=== PATIENT | male | born 1945 | race Caucasian/White ===

== ENCOUNTER 2020-01-20 01:10 | Inpatient (IN) | payer MEDICARE, SELFPAY ==
[2020-01-20] VITALS (24 sets, daily range): BP systolic 132–204; BP diastolic 64–145; PULSE 69–136; RESP 20–37; TEMP 36.6–36.8; O2SAT 86–100; BMI 34.7
--- NOTE | ~2020-01-20 | XR_ITS ---
EXAMINATION: XR chest 1V portable EXAM DATE: 01/21/2020 05:41 INDICATION: CHF, shortness of breath. TECHNIQUE: Portable AP frontal chest x-ray was obtained. Correlation was made with chest CT from [facility]. FINDINGS: Groundglass opacities identified on yesterday's CT have resolved or are not otherwise appre ciated on this portable chest x-ray. There are no pleural effusions. Cardiac silhouette is prominen t but magnified on this AP technique. There is no pneumothorax suspected. The bones and soft tissu es are unremarkable. IMPRESSION: Unremarkable chest x-ray exam. Reviewed, dictated and finalized at location A. ICAL OB
--- NOTE | ~2020-01-20 | CT_ITS ---
EXAMINATION:CT chest wo con DATE: 01/20/2020 02:57 INDICATION: Shortness of breath. TECHNIQUE: Computed tomography (CT) of the chest was performed without intravenous contrast. Automate d exposure control and iterative reconstruction technique were employed. The dose-length product (DLP ) was 685.32 mGy-cm. COMPARISON: None. FINDINGS: There is diffuse smooth septal thickening in the lungs. There are scattered patchy groundgl ass opacities in the lungs. These findings are consistent with pulmonary edema. Calcified bilateral l britni nodules and calcified right hilar lymph nodes are consistent with old granulomatous disease. Ther e are small pleural effusions. There is left ventricular enlargement of the heart. There are coronary artery calcifications. No pericardial effusion. There are cysts in the liver measuring up to 14 mm. There are bridging endplate osteophytes at multiple levels in the spine, consistent with diffuse idio pathic skeletal hyperostosis (DISH). IMPRESSION: 1. Moderate pulmonary edema. 2. Small pleural effusions. 3. Left ventricular enlargement of the heart. Reviewed, dictated and finalized at location A. ORATE TRAVEL COUNSELOR
--- NOTE | 2020-01-20 01:22 | ECG_ITS ---
Measurements Intervals [place] Rate: 123 P: 54 IL: 172 QRS: -10 QRSD: 118 T: 91 QT: 294 QTc: 422 Interpretive Statements SINUS TACHYCARDIA VENTRICULAR PREMATURE COMPLEXES INCOMPLETE LEFT BUNDLE BRANCH BLOCK CANNOT RULE OUT SEPTAL INFARCT, AGE INDETERMINATE ST-T WAVE ABNORMALITY IN HIGH LATERAL LEADS- CONSIDER ISCHEMIA BASELINE ARTIFACT- I, II, III, AVL, AVF, V3-V5 ABNORMAL ECG Electronically Signed On 01-20-2020 7:04:00 GRADES 9 THRU 12 VISITING TEACHER by Cheng Gonzalez D.O.
--- NOTE | 2020-01-20 01:26 | ED.SOB ---
HPI - SOB/Dyspnea General Chief Complaint: Shortness of Breath/Dyspnea Stated Complaint: SOB Time Seen by Provider: 01/20/20 01:14 Source: patient Mode of arrival: ambulatory Limitations: no limitations History of Present Illness HPI Narrative: Patient is a 72-year-old male complaining of shortness of breath that started tonight accompanied by fever and cough. Patient in respiratory distress upon arrival. Patient's oxygen sat on room air was 84%, he does not use oxygen at home. MD elicited complaint: shortness of breath Related Data Home Medications Medication Instructions Recorded Confirmed Unable to Obtain Home Medications 01/20/20 01/20/20 Allergies Allergy/AdvReac Type Severity Reaction Status Date / Time No Known Allergies Allergy Unverified 01/20/20 01:24 Review of Systems Review of Systems: All systems reviewed & are unremarkable except as noted in HPI and below Constitutional: Constitutional: Denies body ache(s), Denies chills, Denies excessive sweating, Denies fatigue, Denies fever(s), Denies headache(s), Denies lethargy, Denies malaise, Denies weakness and Denies weight loss Eyes: Eyes: Denies blurry vision, Denies change in vision and Denies loss of vision ENT: Denies dizziness, Denies ear discharge, Denies headache(s), Denies lip swelling, Denies epistaxis, Denies nasal congestion, Denies neck pain, Denies throat swelling and Denies tongue swelling Cardiovascular: Cardiovascular: Denies chest pain, Denies chest pain at rest, Denies chest pain with activity, Denies diaphoresis, Denies rapid heart rate, Denies edema, Denies irregular heart rhythm, Denies lightheadedness and Denies palpitations Respiratory: Respiratory: Denies hemoptysis Gastrointestinal: Gastrointestinal: Denies abdominal pain, Denies melena, Denies hematochezia, Denies diarrhea, Denies nausea, Denies vomiting and Denies hematemesis Musculoskeletal: Musculoskeletal: Denies abnormal gait, Denies deformity, Denies joint swelling, Denies limited range of motion, Denies neck pain and Denies numbness Neurologic: Denies Abnormal speech present, Denies abnormal gait, Denies confusion, Denies dizziness, Denies headache(s), Denies focal weakness, Denies loss of vision, Denies numbness, Denies Other visual disturbances, Denies Sensory deficit (Neuro) and Denies weakness Psychiatric: Psychiatric: Denies confusion, Denies depression, Denies auditory hallucinations, Denies homicidal ideation and Denies suicidal ideation Endocrine: Endocrine: Denies cold intolerance, Denies excessive sweating, Denies fatigue, Denies heat intolerance and Denies palpitations Hematologic/Lymphatic: Hematologic/Lymphatic: Denies easy bleeding and Denies easy bruising Allergic/Immunologic: Allergic/Immunologic: Denies lip swelling, Denies throat swelling and Denies tongue swelling PMF Social History Social History Gender identity (if verbalized by the patient): Male Exam Const: General: ill appearing Nutritional Appearance: obese Orientation/consciousness: oriented to person, oriented to place, oriented to time, patient oriented x3 and No confusion Limitations: no limitations Other: Severe distress HENMT: Head: normal to inspection, normocephalic and atraumatic Ears: hearing grossly normal bilaterally, TM normal on the right and TM normal on the left General nose exam: Normal external nose present, Normal nares present and No nasal discharge present Face and sinus: normal facial exam Mouth: Yes Normal oral and palatal mucosa present, Yes lip normal, Yes tongue normal and Yes oropharynx normal Throat: posterior oropharynx normal, tonsils normal and uvula midline Eyes: General: appearance normal, both eyes and all related structures Pupils: Equal, round and reactive pupils present EOM: EOMs intact bilaterally Neck: Neck: normal visual inspection, full ROM, no lymphadenopathy and no meningeal signs Chest: Chest palpation & inspection: normal inspection of the c
[2020-01-20] MEDS: FUROSEMIDE INJ 40 MG/4 ML VIAL IV PUSH ×2 (01:37→15:26)
[2020-01-20 01:39] LABS: Glucose Point of Care 457 (65-105)
[2020-01-20] MEDS: ALBUTEROL SULFATE NEB 2.5 MG/0.5 ML INH 5 MG INHALATION (01:43)
[2020-01-20] MEDS: IPRATROPIUM BR 0.02% INH SOLN 0.5 MG/2.5 ML VIAL INHALATION (01:44)
[2020-01-20 01:51] LABS: Basophils Absolute Auto 0.1 K/mm3 (0.0-0.1); Basophils Percent Auto 0.4 % (0.2-1.2); Eosinophils Absolute Auto 0.1 K/mm3 (0-0.3); Eosinophils Percent Auto 0.4 % (0-4.4); Hematocrit 53.5 % (42.0-52.0); Hemoglobin 17.8 g/dL (14.0-18.0); Immature Granulocyte Absolute 0.06 K/mm3 (0.00-0.031); Immature Granulocyte Percent A 0.4 % (0-0.5); Lymphocytes Absolute Auto 2.43 K/mm3 (0.9-3.2); Lymphocytes Percent Auto 14.5 % (18.3-44.2); Mean Corpuscular HGB Conc 33.3 g/dl (32-36); Mean Corpuscular Hemoglobin 28.7 pg (26-34); Mean Corpuscular Volume 86.3 fl (80-100); Monocytes Absolute Auto 1.3 K/mm3 (0.1-0.6); Monocytes Percent Auto 7.8 % (2.6-8.5); Neutrophils Absolute Auto 12.8 K/mm3 (1.3-6.7); Neutrophils Percent Auto 76.5 % (45.5-73.1); Platelet Count Result 257 k/mm3 (150-375); Red Cell Distribution Width 12.9 % (11.5-14.5); White Blood Count 16.8 K/mm3 (4.5-10.0)
[2020-01-20 02:09] LABS: Alveolar/Arterial O2 Gradient 96.8 mmHg; Base Excess ABG 0.5 mEq/l (+/-2.0); Carboxyhemoglobin 0.6 % THb (0-2.0); Fractional Inspired Oxygen 35 %; HCO3 ABG 27.5 mEq/l (22.0-26.0); Methemoglobin ABG 0.2 %THb (0-1.5); Oxygen Content ABG 24.1 %vol (16.0-22.0); Oxygen Saturation ABG 96.5 % (95.0-100.0); Oxyhemoglobin 95.6 % THb (90.0-100.0); PCO2 ABG 52.4 mmHg (35.0-45.0); PO2 ABG 91.8 mmHg (80.0-100.0); PO2 FiO2 Ratio Arterial Blood 2.62 %; Reduced Hemoglobin 3.6 %THb (0-5.0); Total Hemoglobin 17.9 g/dL (12.0-18.0); pH ABG 7.338 (7.350-7.450)
[2020-01-20 02:10] LABS: Device NASAL CANNULA; Modified Allen's Test Pass; Site Drawn RIGHT RADIAL
[2020-01-20 02:28] LABS: Alanine Aminotransferase 26 U/L (4-50); Albumin Level 4.3 g/dL (3.5-5.1); Alkaline Phosphatase 179 U/L (38-126); Anion Gap 11 mmol/L (8-16); Aspartate Amino Transferase 37 U/L (17-59); Bilirubin,Total 0.6 mg/dL (0.2-1.3); Blood Urea Nitrogen 14 mg/dL (9-20); Calcium 9.2 mg/dL (8.4-10.2); Carbon Dioxide 31 mmol/L (22-30); Chloride 97 mmol/L (98-107); Estimated CRCL calculation 81 ml/min; Estimated Glomerular Filt Rate > 60; Glucose 482 mg/dL (75-110); NT Pro B Type Natriuretic Pept 887 PG/ML (5-100); Potassium 3.8 mmol/L (3.4-5.0); Sodium 139 mmol/L (137-145); Troponin I 0.315 ng/mL (0.000-0.034)
[2020-01-20] MEDS: ASPIRIN 81 MG CHEWABLE TABLET 324 MG PO (02:39)
[2020-01-20 02:48] LABS: INR 0.8; Prothrombin Time 12.1 Seconds (11.1-14.7)
[2020-01-20 03:05] LABS: Lactic Acid Reflex 2.6 mmol/L (0.7-2.1)
[2020-01-20] MEDS: ENOXAPARIN 120 MG/0.8 ML SYRINGE 110 MG SUB-Q ×2 (04:57→19:16)
[2020-01-20 05:23] LABS: Alanine Aminotransferase 28 U/L (4-50)
[2020-01-20 05:35] LABS: Reflex Lactic Acid Yes or No Add Lactic
--- NOTE | 2020-01-20 05:35 | ADMGEN ---
This patient, Shree Chapman, was admitted to IMU Room 211-01. Patient/family oriented to hospital policies and general routines including ID bracelet, bed and alarms, visiting hours, pain management, procedures, bathroom and other care routines, personal items, smoking policy, room service/diet, and visiting hours. Information on how to activate the Rapid Response Team has been discussed. Patient/Family are encouraged to report perceived risks to care and to ask questions if they do not understand what they are told or what they should do.
--- NOTE | 2020-01-20 05:37 | PC.NURSE ---
patient states he sent home wallet with friend Farheen
[2020-01-20 06:09] LABS: Lactic Acid 2.9 mmol/L (0.7-2.1)
[2020-01-20 08:43] LABS: Glucose Point of Care 489 (65-105)
--- NOTE | 2020-01-20 09:55 | PC.NURSE ---
Spoke with Parvin from Pharmacy. Kelley
[2020-01-20 12:29] LABS: Lactic Acid Reflex 2.5 mmol/L (0.7-2.1)
[2020-01-20 12:36] LABS: Basophils Percent Auto 0.2 % (0.2-1.2); Hematocrit 50.2 % (42.0-52.0); Hemoglobin 16.9 g/dL (14.0-18.0); Immature Granulocyte Absolute 0.06 K/mm3 (0.00-0.031); Immature Granulocyte Percent A 0.5 % (0-0.5); Immature Platelet Fraction Pct 3.2 % (0.9-11.2); Lymphocytes Absolute Auto 0.98 K/mm3 (0.9-3.2); Lymphocytes Percent Auto 7.7 % (18.3-44.2); Mean Corpuscular HGB Conc 33.7 g/dl (32-36); Mean Corpuscular Volume 83.3 fl (80-100); Mean Platelet Volume 10.2 fl (7.4-10.4); Monocytes Absolute Auto 0.2 K/mm3 (0.1-0.6); Monocytes Percent Auto 1.6 % (2.6-8.5); Neutrophils Absolute Auto 11.5 K/mm3 (1.3-6.7); Platelet Count Result 228 k/mm3 (150-375); Red Blood Count 6.03 M/mm3 (4.6-6.20); Red Cell Distribution Width 12.8 % (11.5-14.5); White Blood Count 12.8 K/mm3 (4.5-10.0)
[2020-01-20 13:05] LABS: Hemoglobin A1C 10.8 % (<5.7)
[2020-01-20 13:06] LABS: Anion Gap 11 mmol/L (8-16); Blood Urea Nitrogen 17 mg/dL (9-20); Calcium 9.1 mg/dL (8.4-10.2); Carbon Dioxide 30 mmol/L (22-30); Chloride 98 mmol/L (98-107); Estimated CRCL calculation 99 ml/min; Estimated Glomerular Filt Rate > 60; Glucose 463 mg/dL (75-110); Potassium 4.4 mmol/L (3.4-5.0); Sodium 139 mmol/L (137-145)
--- NOTE | 2020-01-20 13:40 | ECG_ITS ---
Measurements Intervals [place] Rate: 78 P: -1 DC: 165 QRS: -31 QRSD: 110 T: 151 QT: 467 QTc: 534 Interpretive Statements SINUS RHYTHM INCOMPLETE LEFT BUNDLE BRANCH BLOCK INFERIOR INFARCT, AGE INDETERMINATE ANTEROSEPTAL INFARCT, AGE INDETERMINATE ST-T WAVE ABNORMALITY IN ANTEROLAT/HIGH LAT LEADS- CONSIDER ISCHEMIA ABNORMAL ECG Electronically Signed On 01-20-2020 17:25:37 ANALOG IC DESIGN ENGINEER by Cheng Gonzalez D.O.
[2020-01-20 14:35] LABS: Glucose Point of Care 482 (65-105)
--- NOTE | 2020-01-20 15:01 | PM.CNCAR ---
Assessment and Plan Assessment and plan (1) Non-ST elevation AR (NSTEMI): Code(s): I21.4 - Non-ST elevation (NSTEMI) myocardial infarction Status: Acute Assessment and Plan: Patient presents with anginal symptoms improved transiently with sublingual nitroglycerin with shortness of breath and chest discomfort consistent with acute coronary syndrome with elevated troponin abnormal EKG with ST depression, and history of CAD with multiple stents previously placed 2000 with severe multi-vessel CAD 2.5 x 20 mm tetra stent diagonal mid LAD 2.75 x 28 mm tetra stent mid LAD, 2.75 x 13 mm tetra stent posterolateral, 3.0 x 13 mm stent PDA. NPO after midnight if COVID negative with plans for coronary angiography in a.m.. Cont ASA, Enoxaparin, Atorvastatin, spironolactone, Toprol XL. Plavix was on outpatient med list until he ran out at least 4-5 days ago and has been restarted. If COVID positive will need to discuss management options based on patient's clinical status. -hold a.m. enoxaparin in anticipation for coronary angiography. -2D echocardiogram -repeat 12 lead EKG and troponin for trending Discussed risks, benefits, and alternatives in detail. All questions answered to his satisfaction. Patient agrees with coronary angiography if appropriate. 06/27/2000 LHC at [facility]: Patient presented with unstable angina (report mentions he is [employer]) 70% mid LAD stenosis, 95% proximal diagonal branch stenosis, 50% proximal circumflex, dominant RCA 75% distal right, 80% PDA and 70% posterolateral stenosis, EF 60% moderate hypokinesis diaphragmatic segment (2) Pulmonary edema: Qualifiers: Chronicity: acute Qualified Code(s): J81.0 - Acute pulmonary edema Code(s): J81.1 - Chronic pulmonary edema Status: Acute Assessment and Plan: Resolved with IV Lasix. Monitor volume status. Likely secondary to acute coronary syndrome. 2D echocardiogram. BNP 887 (3) Acute hypoxemic respiratory failure: Code(s): J96.01 - Acute respiratory failure with hypoxia Status: Acute Assessment and Plan: Resolving, remains on oxygen supplementation but stable. COVID pending. (4) CAD (coronary artery disease): Code(s): I25.10 - Atherosclerotic heart disease of crow coronary artery without angina pectoris Status: Acute Assessment and Plan: As above. (5) Diabetes mellitus: Code(s): E11.9 - Type 2 diabetes mellitus without complications Status: Acute Assessment and Plan: Per primary service. Blood sugars elevated 463 hemoglobin A1c 10.8% uncontrolled. (6) Hypertension: Code(s): I10 - Essential (primary) hypertension Status: Acute Assessment and Plan: Hypertensive urgency presentation improved but not ideally controlled at this time. History of Present Illness History of Present Illness Consult date/time: Date of Service: 01/20/20 15:01 Cardiology consultation at the request of Dr. Garcia of the [facility] for my opinion regarding elevated troponin and chest pain. Requesting physician: Akil Garcia MD Consult reason: chest pain Reason For Visit: Acute respiratory failure Narrative: Patient is a pleasant 74-year-old male with a history of remote multi-vessel percutaneous intervention 06/27/2000 [facility] status post 2.5 x 20 mm tetra stent diagonal branch, 2.75 x 28 mm tetra mid LAD, 2.75 x 13 mm tetra stent posterolateral and 3.0 x 13 mm stent ostial PDA/distal RCA without consistent cardiovascular follow-up for many years Ford presented to the emergency department with complaints of progressive shortness of breath over the preceding 1-2 days. Patient states he had been out of all his medications for the past 4 or 5 days and noted some progressive swelling in his ankles and a flipping sensation is chest pressure discomfort was transiently resolved with sublingual nitroglycerin of his mother's. He
--- NOTE | 2020-01-20 15:12 | PM.IMHP ---
H&P: HPI History of Present Illness Date/Time: 01/20/20 15:12 Chief complaint: Acute respiratory failure Narrative: Date of visit 899 Shree Chapman is a 74 year old male with known history of coronary disease status post stenting x4 at [facility] at least 4-5 years ago who presented to the hospital with increasing shortness of breath for the last 24-48 hours. States that he had misplaced his medication and had not taken his usual diuretic another medication for approximately 4-5 days. He had noticed some swelling in his ankles. He had taken nitroglycerin of his mother's within the past day also with chest discomfort when he was helping move her. No fever no chills documented. Minimal cough and no COVID exposures that he is aware of. States he has had a nuclear stress test but can't say exactly when it and does not know if he has had heart failure. He is a nonsmoker but states he had lots of secondhand smoke Review of Systems Review of Systems: Narrative: Constitutionally phase weight is down slightly dieting some but good appetite and no fever chills as stated Eyes no double vision no scotoma Mouth no pharyngitis laryngitis Pulmonary as per present illness CV as per present illness no palpitation no dysuria no hematuria GI no melena hematochezia diarrhea Muscle skeletal no particular joint discomfort Integument no skin breakdown rashes Neuropsych affect appropriate pleasant and no history of seizures or syncope PMFSH Past Medical History Medical History (Updated 01/20/20 @ 16:25 by Akil Garcia MD) CAD (coronary artery disease) Diabetes mellitus Hypertension Laryngeal carcinoma Family History Family History (Updated 01/20/20 @ 16:24 by Akil Garcia MD) Mother Hypertension Diabetes mellitus Cerebrovascular accident Father , Lung carcinoma Carcinoma, lung Other Unknown family medical history Social History Social History Social History: 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[employer], 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 Two children living and well Smoking status: Never smoker Alcohol intake: current Substance use: never Gender identity (if verbalized by the patient): Male Spiritual care concerns: No Meds Home Medications and Allergies Home Medications Medication Instructions Recorded Confirmed Type Unable to Obtain Home Medications 01/20/20 01/20/20 History Allergies Allergy/AdvReac Type Severity Reaction Status Date / Time No Known Allergies Allergy Unverified 01/20/20 01:24 Vital Signs Vital Signs - 24 hr 01/20/20 01:13 01/20/20 01:23 01/20/20 01:31 Temperature 36.6 C Pulse Rate 125 H 136 H 130 H Respiratory Rate 34 H 30 H Blood Pressure 200/145 H 204/123 H Pulse Oximetry 86 L 97 01/20/20 01:35 01/20/20 01:45 01/20/20 01:52 Temperature Pulse Rate 120 H 122 H Respiratory Rate 35 H 37 H Blood Pressure 173/121 H Pulse Oximetry 98 99 96 01/20/20 02:00 01/20/20 02:05 01/20/20 03:00 Temperature Pulse Rate 125 H 119 H 108 H Respiratory Rate 28 H 32 H 26 H Blood Pressure 178/114 H 157/114 H Pulse Oximetry 96 99 01/20/20 03:57 01/20/20 05:00 01/20/20 06:00 Temperature Pulse Rate 109 H 111 H 72 Respiratory Rate 24 H 35 H Blood Pressure 132/90 Pulse Oximetry 100 99 01/20/20 07:01 01/20/20 08:48 01/20/20 12:00 Temperature 36.7 C 36.7 C Pulse Rate 102 H 94 Respiratory Rate 24 H 20 Blood Pressure 148/93 H 155/77 H Pulse Oximetry 99 95 97 Exam Narrative: Exam Narrative: Blood pressure 154/76 pulse 94 regular is afebrile Pupils equal reactive light sclera anicteric Neck supple no adenopathy thyromegaly carotid bruits Lungs clear very faint crackle right posterior base CV regular rate rhythm no murmurs gallops Abdomen soft nontender no masses slightly obese Extremities without edema distal pulses are
[2020-01-20] MEDS: CLOPIDOGREL BISULFATE 75 MG TABLET PO (15:25)
[2020-01-20] MEDS: SPIRONOLACTONE 25 MG TABLET PO (15:25)
[2020-01-20] MEDS: METOPROLOL SUCCINATE EXT REL 100 MG TABCR PO (15:25)
[2020-01-20] MEDS: INSULIN GLARGINE (*BKC) 100 UNITS/ML 20 UNITS SUB-Q (15:30)
[2020-01-20] MEDS: ASPIRIN 81 MG ENTERIC TABLET PO (16:05)
[2020-01-20] MEDS: ATORVASTATIN 40 MG TABLET PO (16:05)
[2020-01-20] MEDS: INSULIN ASPART (*BKC) 100 UNITS/ML 15 UNITS SUB-Q (16:05)
[2020-01-20 19:12] LABS: Glucose Point of Care 446 (65-105)
[2020-01-20 19:16] LABS: SARS-CoV-2 RNA PCR Negative
[2020-01-20] MEDS: INSULIN ASPART (*BKC) 100 UNITS/ML 25 UNITS SUB-Q (19:16)
[2020-01-20] MEDS: INSULIN ASPART (*BKC) 100 UNITS/ML 10 UNITS SUB-Q (20:55)
[2020-01-20 21:08] LABS: Glucose Point of Care > 500 (65-105)
[2020-01-21] VITALS (32 sets, daily range): BP systolic 108–158; BP diastolic 53–119; PULSE 55–75; RESP 12–26; TEMP 35.7–36.9; O2SAT 94–100
[2020-01-21 01:21] LABS: Glucose Point of Care 176 (65-105)
[2020-01-21 05:33] LABS: Basophils Percent Auto 0.1 % (0.2-1.2); Hematocrit 48.1 % (42.0-52.0); Immature Granulocyte Absolute 0.11 K/mm3 (0.00-0.031); Immature Granulocyte Percent A 0.6 % (0-0.5); Lymphocytes Absolute Auto 1.88 K/mm3 (0.9-3.2); Lymphocytes Percent Auto 10.2 % (18.3-44.2); Mean Corpuscular HGB Conc 33.3 g/dl (32-36); Mean Corpuscular Hemoglobin 28.4 pg (26-34); Mean Corpuscular Volume 85.4 fl (80-100); Monocytes Absolute Auto 1.4 K/mm3 (0.1-0.6); Monocytes Percent Auto 7.6 % (2.6-8.5); Neutrophils Percent Auto 81.5 % (45.5-73.1); Platelet Count Result 259 k/mm3 (150-375); Red Blood Count 5.63 M/mm3 (4.6-6.20); Red Cell Distribution Width 12.9 % (11.5-14.5); White Blood Count 18.4 K/mm3 (4.5-10.0)
[2020-01-21 05:49] LABS: Potassium 3.5 mmol/L (3.4-5.0)
[2020-01-21 06:00] LABS: Anion Gap 7 mmol/L (8-16); Blood Urea Nitrogen 27 mg/dL (9-20); Calcium 8.7 mg/dL (8.4-10.2); Carbon Dioxide 35 mmol/L (22-30); Chloride 97 mmol/L (98-107); Estimated CRCL calculation 87 ml/min; Estimated Glomerular Filt Rate > 60; Glucose 232 mg/dL (75-110); Phosphorus 3.8 mg/dL (2.5-4.5); Sodium 139 mmol/L (137-145)
[2020-01-21] MEDS: LEVOTHYROXINE SODIUM 50 MCG TABLET PO (06:33)
--- NOTE | 2020-01-21 08:32 | WPDMODSED ---
Moderate Sedation Note-Pt Data Patient Data Diagnosis: Non ST-elevation IN Present Complaint: 74-year-old man with established history of coronary disease multivessel stenting in the remote past presents with chest pain and significant troponin elevation patient also has evolved significant T-wave inversion electrocardiographically Procedure to be performed/Plan: left heart catheterization Allergies Allergy/AdvReac Type Severity Reaction Status Date / Time No Known Allergies Allergy Unverified 01/20/20 01:24 Home Medications Medication Instructions Recorded Confirmed Type clopidogrel 75 mg PO DAILY 01/20/20 01/20/20 History levothyroxine 50 mcg PO DAILY 01/20/20 01/20/20 History metoprolol succinate 100 mg PO DAILY 01/20/20 01/20/20 History rosuvastatin 40 mg PO DAILY 01/20/20 01/20/20 History spironolactone 25 mg PO DAILY 01/20/20 01/20/20 History Current Medications: Active Medications Acetaminophen (Acetaminophen 325 Mg Tablet) 650 mg PO Q4H PRN PRN Reason: Mild Pain (1-3) or Fever Al Hydrox/Mg Hydrox/Simethicone (Mag Hydrox/Al Hydrox/Simeth 30 Ml Udc) 30 ml PO QID PRN PRN Reason: Dyspepsia Aspirin (Aspirin 81 Mg Enteric Tablet) 81 mg PO QAM [facility] Last Admin: 01/20/20 16:05 Dose: 81 mg Documented by: Atorvastatin Calcium (Atorvastatin 40 Mg Tablet) 40 mg PO DAILY [facility] Last Admin: 01/20/20 16:05 Dose: 40 mg Documented by: Clopidogrel Bisulfate (Clopidogrel Bisulfate 75 Mg Tablet) 75 mg PO QAM [facility] Last Admin: 01/20/20 15:25 Dose: 75 mg Documented by: Dextrose (Dextrose 50% 25 Gm/50 Ml Syringe) 12.5 gm IV PUSH PRN PRN; Protocol PRN Reason: Hypoglycemia Enoxaparin Sodium (Enoxaparin 120 Mg/0.8 Ml Syringe) 110 mg SUB-Q Q12H [facility] Last Admin: 01/20/20 19:16 Dose: 110 mg Documented by: Glucagon (Glucagon For Inj 1 Mg Vial) 1 mg IM PRN PRN; Protocol PRN Reason: Hypoglycemia Glucose (Glucose Oral Gel 15 Gm Of Glucse In 37.5 Gm Tube) 15 gm PO PRN PRN; Protocol PRN Reason: Hypoglycemia Dextrose (Dextrose 5% 1,000 Ml) 1,000 mls @ 100 mls/hr IVPB PRN PRN; Protocol PRN Reason: Hypoglycemia Insulin Aspart (Insulin Aspart (*Bkc) 100 Units/Ml) 4 - 8 units SUB-Q TID[facility]; Protocol Last Admin: 01/20/20 19:12 Dose: Not Given Documented by: Levothyroxine Sodium (Levothyroxine Sodium 50 Mcg Tablet) 50 mcg PO DAILY@0630 [facility] Last Admin: 01/21/20 06:33 Dose: 50 mcg Documented by: Lisinopril (Lisinopril 5 Mg Tablet) 5 mg PO [facility] Last Admin: 01/20/20 23:13 Dose: Not Given Documented by: Magnesium Hydroxide (Magnesium Hydroxide Susp 30 Ml Udc) 30 ml PO DAILY PRN PRN Reason: Constipation Metoprolol Succinate (Metoprolol Succinate Ext Rel 100 Mg Tabcr) 100 mg PO [facility] Last Admin: 01/20/20 15:25 Dose: 100 mg Documented by: Ondansetron HCl (Ondansetron Inj 4 Mg/2 Ml Vial) 4 mg IV PUSH Q6H PRN PRN Reason: Nausea And Vomiting Spironolactone (Spironolactone 25 Mg Tablet) 25 mg PO [facility] Last Admin: 01/20/20 15:25 Dose: 25 mg Documented by: Sedation/Anesthesia: No previous sedation/anesthesia problems (including family history). 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
[2020-01-21 10:11] LABS: Glucose Point of Care 263 (65-105)
--- NOTE | 2020-01-21 10:12 | ECG_ITS ---
Measurements Intervals [place] Rate: 61 P: 22 AR: 170 QRS: -31 QRSD: 106 T: 172 QT: 562 QTc: 568 Interpretive Statements SINUS RHYTHM VENTRICULAR PREMATURE COMPLEX INFERIOR INFARCT, AGE INDETERMINATE ANTEROSEPTAL INFARCT, AGE INDETERMINATE ST-T WAVE ABNORMALITY IN ANTEROLAT/HIGH LAT LEADS- CONSIDER ISCHEMIA BASELINE ARTIFACT- I, II ABNORMAL ECG Electronically Signed On 01-21-2020 10:51:29 PHOTOGRAPH TINTER by Cheng Gonzalez D.O.
--- NOTE | 2020-01-21 10:18 | WPDCARDPROC ---
Cardiac Cath Procedure Note Date of procedure:: 01/21/20 Performing physician:: Matt Juarez MD Indication:: non ST-elevation ME Brief clinical history:: this is a 74-year-old man with a history of coronary disease who underwent multivessel PCI 19 years ago at another institution. He presented yesterday with episodes of ischemic chest pain he developed deep T-wave inversion on his ECG and had a significant troponin rise leading to the recommendation for a follow-up angiogram today. Procedure Procedure performed:: Left heart catheterization with left ventriculography and coronary angiography percutaneous revascularization ([place]) to the proximal/mid LAD Sedation/Medication given:: fentanyl 50 mg Versed 2 mg case start time 9:23 a.m. case end time 10:06 a.m. sedation provided by Xiang Rojas RN, trained observer Access site:: right femoral artery Estimated blood loss:: 15-20 cc Procedure note:: patient was brought to the cardiac catheterization lab in the postabsorptive state. The right femoral triangle was prepared and draped in the usual fashion. Anesthesia was provided with 1% lidocaine infiltrated locally. Using modified Seldinger technique the right femoral artery was punctured and a 5 Marshallese vascular sheath was placed. After this left heart catheterization was carried out. I utilized a 5 Marshallese angled pigtail catheter to measure left-sided hemodynamics and injected LV g in the are AO projection. After this I used standard 5 Marshallese FL4 catheter to engage inject the left coronary artery and then a 5 Marshallese JR4 catheter to engage inject the right coronary artery. The cine angiograms were then reviewed and PCI of the LAD was recommended and carried out as detailed below. Prior to PCI 5 Marshallese sheath was changed over a guidewire for a 6 Marshallese device. A he then was systemically anticoagulated with Angiomax for this PCI he received 600 mg of clopidogrel orally prior to PCI. At the end of the intervention the patient was stable the sheath sheath was sutured into position he was taken to the holding area for recovery and ultimate sheath removal. Procedure was well tolerated he had no evidence of a groin hematoma upon leaving the laborer tree tapping. Findings:: Hemodynamics: Central aortic pressure was 105/50 left ventricle 105/0 end-diastolic pressure 4. There is no gradient upon pullback across the aortic valve. The left ventricle is normal in size there is impressive concentric hypertrophy noted. The inferior wall is hypodynamic there are no akinetic segments the global ejection fraction is visually estimated to be 55%. The left main coronary has a superior takeoff but is nicely patent the left anterior descending is a moderate caliber artery extending down to around the apex. There is a long visible stent in the LAD bridging a diagonal branch at leading into the midportion of the vessel. There is diffuse stenosis in this stent in the midportion of the stent in the vessel is 90% occluded. There is also visible stent material in the major diagonal branch which has no significant loss of lumen there is minimal luminal irregularity distal to the stent but JASON 3 flow in the diagonal. The circumflex is a moderate caliber artery giving rise to the marginal branches. The circumflex system has mild diffuse luminal irregularities but no significant lesions are identified. There is no visible stent in the circumflex system despite records to the contrary right coronary artery is moderate caliber was dominant to the posterior circulation. There is mild atherosclerosis in the 1st and 2nd portions of the RCA. There is a 100% occlusion of the 3rd portion of the RCA. Visible stent material is noted in the RPDA and RPL branches however there is no antegrade flow in the right coronary. The distal right coronary does receive [id number] collateral filling from the distal circumflex with a fairly well-developed collateral vessel. Interv
--- NOTE | 2020-01-21 10:40 | SUR.PHASEII ---
Patient arrives to [facility] PACU A & O x3. Critical hookups applied. VSS stable. 6 Fr sheath to R groin remains in place with no evidence of bleeding or hematoma. Peripheral pulse noted. Angiomax gtt stopped at 1030. Post interventional EKG obtained. Patient remains flat on bedrest. Patient updated on plan of care and verbalizes understanding. Will continue to monitor closely.
[2020-01-21] MEDS: SODIUM CHLORIDE 0.9% IV 1,000 ML 125 ML IV CONT (11:00)
--- NOTE | 2020-01-21 12:43 | SUR.PHASEII ---
1235 Sheath pulled under aseptic technique. Manual pressure applied by Deborah Lopez RN.
[2020-01-21 16:34] LABS: Glucose Point of Care 180 (65-105)
--- NOTE | 2020-01-21 16:44 | PM.IMPN ---
Progress Note: A&P Assessment and Plan (1) Non-ST elevation [place] (NSTEMI): Code(s): I21.4 - Non-ST elevation (NSTEMI) myocardial infarction Status: Acute Assessment and Plan: Initial troponin 0.3 but repeat up to 15. No further chest pain. Non ST elevation myocardial infarction. Add beta-portillo, JERONIMO-inhibitor, aspirin, statin, and full-dose anticoagulation. COVID negative and underwent catheterization today with stenting of occluded LAD stent that was 90%. Overall ventricular function was thought to be normal with inferior hypokinesis Full-dose Lovenox (2) Acute hypoxemic respiratory failure: Code(s): J96.01 - Acute respiratory failure with hypoxia Status: Acute Assessment and Plan: Probably secondary to congestive heart failure and thought secondary to ischemia or hypertension since EF normal by catheterization. Continue, metoprolol XL, and low-dose JERONIMO-inhibitor., holding Lasix with increasing BUN and CO2 Was given antibiotics in the ER though no obvious infection. And COVID result negative as above (3) Pulmonary edema: Qualifiers: Chronicity: acute Qualified Code(s): J81.0 - Acute pulmonary edema Code(s): J81.1 - Chronic pulmonary edema Status: Acute Assessment and Plan: As above has diuresed and feeling much better, chest x-ray today is clear. Again thought secondary to the hypertension and/or ischemia (4) Diabetes mellitus: Code(s): E11.9 - Type 2 diabetes mellitus without complications Status: Acute Assessment and Plan: A1c 10.9 blood sugar remaining high. Novalog and started Lantus 20 units daily. (5) Hypertension: Code(s): I10 - Essential (primary) hypertension Status: Acute Assessment and Plan: Fair control continue the beta-portillo and JERONIMO-inhibitor (6) DVT prophylaxis: Code(s): Z29.9 - Encounter for prophylactic measures, unspecified Status: Acute Assessment and Plan: Lovenox mg per kg q.12 hours initially q.12 hours Subjective Date/time seen: 01/21/20 16:44 Interval history: Date of visit 01/20, 74-year-old hypertensive type 2 diabetic admitted in respiratory failure secondary to congestive heart failure with elevated troponin. Subsequently diagnosed as non ST elevation myocardial infarction with negative COVID swab. Seen by Cardiology and plan for cardiac catheterization today. No further shortness breath or chest discomfort Exam Narrative: Exam Narrative: Blood pressure 130/74 pulse 64 regular is afebrile Pupils equal reactive light sclera anicteric Neck supple Lungs clear CV regular rate rhythm no murmurs gallops Abdomen soft nontender no masses slightly obese Extremities without edema distal pulses are 2+ Neuro alert pleasant cooperative no focal deficits Objective Data Vital Signs Vital Signs: Vital Signs - 24 hr 01/20/20 18:00 01/20/20 20:00 01/20/20 22:00 Temperature 36.8 C Pulse Rate 83 69 69 Respiratory Rate 20 Blood Pressure 136/85 Pulse Oximetry 99 01/20/20 23:01 01/21/20 00:00 01/21/20 01:15 Temperature 36.6 C Pulse Rate 77 59 L 65 Respiratory Rate 21 H 20 25 H Blood Pressure 108/69 Pulse Oximetry 98 97 95 01/21/20 02:00 01/21/20 04:00 01/21/20 04:16 Temperature 36.7 C Pulse Rate 68 58 L 55 L Respiratory Rate 20 22 H Blood Pressure 126/74 Pulse Oximetry 99 95 01/21/20 06:00 01/21/20 08:00 01/21/20 10:15 Temperature 35.8 C L 36.4 C L Pulse Rate 55 L 64 71 Respiratory Rate 18 15 Blood Pressure 144/78 H 155/92 H Pulse Oximetry 99 99 01/21/20 10:30 01/21/20 10:45 01/21/20 11:00 Temperature Pulse Rate 61 62 60 Respiratory Rate 18 19 16 Blood Pressure 152/97 H 130/119 H 148/83 H Pulse Oximetry 99 98 99 01/21/20 11:15 01/21/20 11:30 01/21/20 11:45 Temperature Pulse Rate 57 L 63 65 Respiratory Rate 15 14 13 Blood Pressure 158/76 H 151/82 H 150/81 H Pulse Oximetry 100 97 95 01/21/20 12:15
[2020-01-22] VITALS (8 sets, daily range): BP systolic 116–136; BP diastolic 63–68; PULSE 52–102; RESP 16–22; TEMP 35.9–36.3; O2SAT 97–100
--- NOTE | 2020-01-22 | ECHO_ITS ---
Patient Info Name: Shree Chapman Age: 74 years : 1945 Gender: Male Ht: 69 in Wt: 234 lbs BSA: 2.31 m2 HR: 55 bpm BP: 105 / 65 mmHg Heart Rhythm: Sinus Rhythm Technical Quality: Good Exam Date: 01/22/2020 8:31 AM Exam Location: [facility] Pulmonary Patient Status: Inpatient Admit Date: 01/20/2020 Staff Ordering Physician: Akil Garcia MD Banking Attorney: Alexi West RDCS, RT Attending Provider: Nate Mclain MD Referring Physician: Jose SPRINGER; Exam Type: CA echo doppler color flow Study Info Indications I21.29 - ST elevation (STEMI) myocardial infarction involving other sites Complete two-dimensional, color flow and Doppler transthoracic echocardiogram is performed. Strain analysis performed. Summary 1. Left ventricular systolic function is lower limits of normal, estimated at 50-55%. 2. There is moderately increased left ventricular wall thickness. 3. There is trace tricuspid valve regurgitation. 4. Unable to estimate PA systolic pressure due to poor spectral resolution of tricuspid regurgitant jet velocity. Left Ventricle Left ventricular chamber dimension is normal. Left ventricular systolic function is lower limits of normal, estimated at 50-55%. There is moderately increased left ventricular wall thickness. The left ventricular diastolic function is grade I diastolic dysfunction. Global longitudinal strain is moderately elevated at -12 %. Right Ventricle Right ventricular chamber dimension is normal. Right ventricular systolic function is normal. Left Atria Left atrial chamber dimension is mildly enlarged. Right Atria Right atrial chamber dimension is mildly enlarged. Aortic Valve The aortic valve is trileaflet. There is no aortic valve stenosis. There is no aortic valve regurgitation. Pulmonic Valve The pulmonic valve is not well visualized. Mitral Valve The mitral valve has normal leaflets. There is trace mitral valve regurgitation. The mitral valve annulus is mildly calcified. Tricuspid Valve The tricuspid valve leaflets are normal. There is trace tricuspid valve regurgitation. Unable to estimate PA systolic pressure due to poor spectral resolution of tricuspid regurgitant jet velocity. Pericardium/Pleural The pericardium appears normal. There is small pericardial effusion. Aorta The aortic root size at the sinus of Valsalva is normal. There is mild aortic atherosclerosis. Left Ventricular Outflow Tract Name Value Normal LVOT 2D LVOT Diameter 2.1 cm LVOT Doppler LVOT Peak Gradient 3 mmHg LVOT Mean Gradient 1 mmHg LVOT VTI 17 cm LVOT VTI/AV VTI Ratio 0.6 LVOT Stroke Volume 59 ml LVOT CO 3.3 l/min LVOT CI 1.4 l/min/m2 Mitral Valve Name Value Normal
[2020-01-22 05:03] LABS: Basophils Percent Auto 0.2 % (0.2-1.2); Eosinophils Absolute Auto 0.1 K/mm3 (0-0.3); Eosinophils Percent Auto 0.5 % (0-4.4); Hematocrit 39.8 % (42.0-52.0); Hemoglobin 13.2 g/dL (14.0-18.0); Immature Granulocyte Absolute 0.02 K/mm3 (0.00-0.031); Immature Granulocyte Percent A 0.2 % (0-0.5); Lymphocytes Absolute Auto 2.36 K/mm3 (0.9-3.2); Lymphocytes Percent Auto 25.4 % (18.3-44.2); Mean Corpuscular HGB Conc 33.2 g/dl (32-36); Mean Corpuscular Hemoglobin 28.2 pg (26-34); Mean Platelet Volume 9.9 fl (7.4-10.4); Monocytes Absolute Auto 0.8 K/mm3 (0.1-0.6); Monocytes Percent Auto 8.3 % (2.6-8.5); Neutrophils Absolute Auto 6.1 K/mm3 (1.3-6.7); Neutrophils Percent Auto 65.4 % (45.5-73.1); Platelet Count Result 197 k/mm3 (150-375); Red Blood Count 4.68 M/mm3 (4.6-6.20); Red Cell Distribution Width 13.1 % (11.5-14.5); White Blood Count 9.3 K/mm3 (4.5-10.0)
--- NOTE | 2020-01-22 05:11 | ECG_ITS ---
Measurements Intervals [place] Rate: 62 P: 2 AK: 155 QRS: -17 QRSD: 104 T: 163 QT: 526 QTc: 536 Interpretive Statements SINUS RHYTHM VENTRICULAR PREMATURE COMPLEX INFERIOR INFARCT, AGE INDETERMINATE ANTEROSEPTAL INFARCT, AGE INDETERMINATE T WAVE ABNORMALITY IN ANTEROLAT/HIGH LAT LEADS- CONSIDER ISCHEMIA BASELINE WANDER- I, III ABNORMAL ECG Electronically Signed On 01-22-2020 12:29:00 CLAY CARMAN by Cheng Gonzalez D.O.
[2020-01-22 05:16] LABS: Anion Gap 5 mmol/L (8-16); Blood Urea Nitrogen 24 mg/dL (9-20); Calcium 8.1 mg/dL (8.4-10.2); Carbon Dioxide 34 mmol/L (22-30); Chloride 100 mmol/L (98-107); Estimated CRCL calculation 90 ml/min; Estimated Glomerular Filt Rate > 60; Glucose 212 mg/dL (75-110); Potassium 3.4 mmol/L (3.4-5.0); Sodium 139 mmol/L (137-145)
[2020-01-22] MEDS: LEVOTHYROXINE SODIUM 50 MCG TABLET PO (05:42)
[2020-01-22] MEDS: ASPIRIN 81 MG CHEWABLE TABLET PO (08:54)
[2020-01-22] MEDS: POTASSIUM CHLORIDE 20 MEQ TABLET 40 MEQ PO (08:54)
[2020-01-22] MEDS: lisinopriL 5 MG TABLET PO (08:54)
[2020-01-22] MEDS: CLOPIDOGREL BISULFATE 75 MG TABLET PO (08:54)
[2020-01-22] MEDS: ATORVASTATIN 40 MG TABLET PO (08:54)
[2020-01-22] MEDS: METOPROLOL SUCCINATE EXT REL 100 MG TABCR PO (08:54)
[2020-01-22] MEDS: SPIRONOLACTONE 25 MG TABLET PO (08:55)
[2020-01-22 09:07] LABS: Glucose Point of Care 196 (65-105)
--- NOTE | 2020-01-22 10:21 | PM.PNCARD ---
Progress Note: A&P Assessment and Plan (1) Non-ST elevation IN (NSTEMI): Code(s): I21.4 - Non-ST elevation (NSTEMI) myocardial infarction Status: Acute Assessment and Plan: Presented with anginal symptoms improved transiently with sublingual nitroglycerin with shortness of breath and chest discomfort consistent with acute coronary syndrome with elevated troponin abnormal EKG with ST depression, and history of CAD with multiple stents previously placed 2000 with severe multi-vessel CAD 2.5 x 20 mm tetra stent diagonal mid LAD 2.75 x 28 mm tetra stent mid LAD, 2.75 x 13 mm tetra stent posterolateral, 3.0 x 13 mm stent PDA. Cardiac catheterization 01/21/[address] Juarez: Multivessel coronary artery disease with high-grade stenosis in the proximal to mid LAD in the region that was previously stented 19 years ago. Remaining patency of the diagonal which was previously stented. No significant circumflex disease and no visible stent material in this vessel despite notes in the chart to the contrary. Total occlusion of the distal right coronary artery with collateral filling from the distal circumflex. Previously deployed stents are visible in the RPDA and RPL but again with no antegrade filling. Left ventricular hypertrophy with inferior hypokinesia but overall good ejection fraction. Proceeded on to successful PCI of the LAD stenosis deploying a [employer] sirolimus eluting stent to this region resulting in angiographically of very nice result. If he continues to have anginal symptoms a DEPLOYMENT ENGINEER intervention of the distal RCA could be considered. Denied chest discomfort, shortness of breath, lightheadedness or palpitations. Right groin site without swelling or bleeding. Ecchymoses noted at the lateral edge of the stat seal. No femoral bruit. Distal pulses intact. Vital signs been stable. Telemetry reveals occasional to frequent PVCs. Potassium was supplemented. At this time he does not have a process stripper. I will make an appointment to see us in follow-up. (2) Pulmonary edema: Qualifiers: Chronicity: acute Qualified Code(s): J81.0 - Acute pulmonary edema Code(s): J81.1 - Chronic pulmonary edema Status: Acute Assessment and Plan: Resolved with IV Lasix. Monitor volume status. Likely secondary to acute coronary syndrome. 2D echocardiogram pending. (3) Acute hypoxemic respiratory failure: Code(s): J96.01 - Acute respiratory failure with hypoxia Status: Acute Assessment and Plan: COVID negative. On room air. Lungs are clear to auscultation. (4) CAD (coronary artery disease): Qualifiers: Coronary Disease-Associated Artery/Lesion type: [place] artery [place] vs. transplanted heart: [place] heart Associated angina: with unstable angina Qualified Code(s): I25.110 - Atherosclerotic heart disease of [place] coronary artery with unstable angina pectoris Code(s): I25.10 - Atherosclerotic heart disease of [place] coronary artery without angina pectoris Status: Acute Assessment and Plan: As above. (5) Diabetes mellitus: Code(s): E11.9 - Type 2 diabetes mellitus without complications Status: Acute Assessment and Plan: Per primary service. Blood sugars elevated 463 hemoglobin A1c 10.8% uncontrolled. (6) Hypertension: Qualifiers: Hypertension type: essential hypertension Qualified Code(s): I10 - Essential (primary) hypertension Code(s): I10 - Essential (primary) hypertension Status: Acute Assessment and Plan: Hypertensive urgency presentation. Blood pressure now goal. Continue Metoprolol succinate and lisinopril. Additional Plan OK to discharge from cardiac standpoint. See discharge instructions for follow-up. Plan discussed with
[2020-01-22 12:15] LABS: Glucose Point of Care 371 (65-105)
[2020-01-22] MEDS: INSULIN ASPART (*BKC) 100 UNITS/ML SUB-Q (12:21)
[2020-01-22] MEDS: INSULIN GLARGINE (*BKC) 100 UNITS/ML 15 UNITS SUB-Q (12:22)
--- NOTE | 2020-01-22 18:08 | PM.DS ---
DS: Admitting Diagnosis Admitting Diagnosis Admitting Diagnosis: Acute respiratory failure DS: Discharge Diagnosis Discharge Diagnosis (1) Non-ST elevation CT (NSTEMI): Code(s): I21.4 - Non-ST elevation (NSTEMI) myocardial infarction Status: Acute Assessment and Plan: Initial troponin 0.3 but repeat up to 15. No further chest pain. Non ST elevation myocardial infarction. Added beta-portillo, JERONIMO-inhibitor, aspirin, statin, and full-dose anticoagulation. COVID negative and underwent catheterization 01/20 with stenting of occluded LAD stent that was 90%. Overall ventricular function was thought to be normal with inferior hypokinesis Echo revealed ejection fraction of 50-55% and grade 1 diastolic dysfunction (2) Acute hypoxemic respiratory failure: Code(s): J96.01 - Acute respiratory failure with hypoxia Status: Acute Assessment and Plan: Probably secondary to congestive heart failure and thought secondary to ischemia or hypertension since EF normal by catheterization. Continue, metoprolol XL, and low-dose JERONIMO-inhibitor., holding Lasix with increasing BUN and CO2 Was given antibiotics in the ER though no obvious infection. And COVID result negative as above (3) Pulmonary edema: Qualifiers: Chronicity: acute Qualified Code(s): J81.0 - Acute pulmonary edema Code(s): J81.1 - Chronic pulmonary edema Status: Acute Assessment and Plan: As above has diuresed and feeling much better, chest x-ray 01/20 is clear. Again thought secondary to the hypertension and/or ischemia (4) Diabetes mellitus: Code(s): E11.9 - Type 2 diabetes mellitus without complications Status: Acute Assessment and Plan: A1c 10.9 blood sugar remaining high. Novalog and started Lantus 20 units daily while here. Patient admits to not following a diet and sugars high here after stress of CT and given dexamethasone in the emergency room. Has taken metformin in the past but had not been taking it regularly recently. Resumed metformin 500 b.i.d. and will have basic metabolic profile drawn within a week Further management per his primary care (5) Hypertension: Qualifiers: Hypertension type: essential hypertension Qualified Code(s): I10 - Essential (primary) hypertension Code(s): I10 - Essential (primary) hypertension Status: Acute Assessment and Plan: Fair control continue the beta-portillo and JERONIMO-inhibitor DS: Summary Hospital Course Hospital Course: 74-year-old hypertensive type 2 diabetic with previous stenting x4 in 2000 presented to the emergency room with increasing shortness of breath primarily with some chest discomfort. There was some ST depression and eventual T-wave inversion 1 aVL V4 through V6. Patient was placed on beta-portillo full-dose anticoagulation, statin, aspirin, and given IV Lasix for evidence of failure. When COVID returned negative he was taken to the crown and bridge dental lab technician 01/20 and found to have a subtotal occluded LAD stent which was wrist ended. RCA was occluded distally but was receiving collateral flow from the circumflex. Overall ejection fraction 50-55%. He will follow-up with cardiology and primary care for management of his diabetes. Time Spent with Patient Time attestation: Total time spent providing and/or coordinating discharge services: 35 minutes Exam Narrative: Exam Narrative: Condition on discharge Blood pressure 136/66 pulse is 72 saturating 97% on room air Lungs clear CV regular rate rhythm no murmurs Abdomen soft nontender Extremities without edema distal pulse 2 + Neuro alert pleasant cooperative no focal deficits He was up about taking a diet well discharged home in stable condition 1 day post stenting to LAD DS: Data Data Completed and Pending Labs on day of discharge: Labs from last 24 hours 01/22/20 01/22/20 01/22/20 12:06 08:52 04:53 WBC RBC Hgb Hct MCV MCH MCHC RDW Plt Count
== END 2020-01-22 15:38 | disposition home or self-care (01) | DRG 246 ==
LOC: ANHED 03:27 → ANHIMU 12:09
PROVIDERS: Specialist; Admitting Provider Internal Medicine; Emergency Provider Emergency Medicine; PCP Internal Medicine; Visit Provider Internal Medicine
PROC: 4A023N7 Measurement of Cardiac Sampling and Pressure, Left Heart, Percutaneous Approach (ICD-10-PCS; CPT 93452; principal; 2020-01-21 09:00)
DX: I21.4 Non-ST elevation (NSTEMI) myocardial infarction (principal); J96.01 Acute respiratory failure with hypoxia; J81.0 Acute pulmonary edema; T82.855A Stenosis of coronary artery stent, initial encounter; I25.10 Atherosclerotic heart disease of native coronary artery without angina pectoris; Z20.828 Contact with and (suspected) exposure to other viral communicable diseases; E11.9 Type 2 diabetes mellitus without complications; I10 Essential (primary) hypertension; Z95.5 Presence of coronary angioplasty implant and graft; Z85.21 Personal history of malignant neoplasm of larynx
CPT/HCPCS: 36415; 36600; 71045; 71250; 80048; 80053; 82375; 82805; 82948; 83036; 83050; 83605; 83735; 83880; 84100; 84443; 84460; 84484; 85025; 85055; 85610; 85730; 87040; 87635; 93005; 93306; 93458; 94002; 94003; 94640; 96365; 96367; 96375; 96376; 99291; A9270; C1725; C1769; C1874; C1887; C1894; C9600; C9803; J0456; J0583; J0696; J1100; J1644; J1650; J1815; J1940; J2250; J3010; J7030; J7040; U0003

== ENCOUNTER 2023-02-02 12:44 | Inpatient (IN) | payer MEDICARE, SELFPAY ==
[2023-02-02] VITALS (18 sets, daily range): BP systolic 108–221; BP diastolic 85–157; PULSE 81–114; RESP 18–41; TEMP 36.3–37.3; O2SAT 97–100; BMI 32.6
--- NOTE | ~2023-02-02 | XR_ITS ---
EXAMINATION: XR chest 1V portable DATE: 02/02/2023 13:35 INDICATION: Shortness of breath. TECHNIQUE: A single frontal view of the chest was obtained. COMPARISON: Chest single view 01/21/2020, chest CT 01/20/2020 FINDINGS: There is a diffuse interstitial pattern, consistent with mild pulmonary edema. No pleural e ffusion or pneumothorax. Cardiomegaly is noted. IMPRESSION: 1. Mild pulmonary edema. 2. Cardiomegaly. Reviewed, dictated and finalized at location A. L TECHNICIAN
--- NOTE | 2023-02-02 12:48 | ECG_ITS ---
Measurements Intervals [place] Rate: 117 P: 60 WI: 175 QRS: -18 QRSD: 101 T: 71 QT: 303 QTc: 423 Interpretive Statements POOR DATA QUALITY BECAUSE OF BASELINE ARTIFACT SINUS TACHYCARDIA WITH FREQUENT VENTRICULAR PREMATURE COMPLEXES POSSIBLE LEFT ATRIAL ENLARGEMENT [-0.1mV P WAVE IN V1/V2] SUSPECT PREVIOUS ANTERIOR WALL WA ABNORMAL ECG COMPARED TO ECG 01/22/2020 11:58:55 MORE FREQUENT PVCS, POOR QUALITY ECG BECAUSE OF BASELINE MOTION ARTIFACT Electronically Signed On 02-02-2023 14:15:10 VICE PRESIDENT PAYMENT by Matt Juarez M.D.
[2023-02-02] MEDS: NITROGLYCERIN SL 0.4 MG TABLET SUBLINGUAL (12:54)
--- NOTE | 2023-02-02 12:59 | ED.SOB ---
HPI - SOB/Dyspnea General Chief Complaint: Shortness of Breath/Dyspnea Stated Complaint: sob Time Seen by Provider: 02/02/23 12:47 Source: patient, EMS, RN notes reviewed and old records reviewed Mode of arrival: EMS Limitations: clinical condition History of Present Illness HPI Narrative: This is a 77 year old male with history of CHF, hypertension , and CAD who presents for evaluation of shortness of breath. EMS states patient developed sudden onset shortness of breath today. He also reports chest pain and cough. He states he feels like his lungs are filled with fluid. He also reports leg swelling. EMS reports patient in respiratory distress with room air oxygen of 88% on room air. He was placed on CPAP without improvement with EMS. He has taken nitro and aspirin 486 mg aspirin at home. Related Data Home Medications Medication Instructions Recorded Confirmed dapagliflozin propanediol 10 mg 10 mg PO DAILY 02/02/23 02/02/23 tablet (Farxiga) ezetimibe 10 mg tablet 10 mg PO HS 02/02/23 02/02/23 glimepiride 2 mg tablet 2 mg PO BID 02/02/23 02/02/23 metformin 500 mg tablet 1,000 mg PO BID 02/02/23 02/02/23 Allergies Allergy/AdvReac Type Severity Reaction Status Date / Time No Known Allergies Allergy Unverified 01/20/20 01:24 Review of Systems Review of Systems: ROS unobtainable: Yes unobtainable due to medical condition [facility] Past Medical History Medical History Coronary artery disease Hypertension Hypothyroidism 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 Type 2 diabetes mellitus Surgical History Surgical History History of cardiac catheterization History of coronary artery stent placement 06/27/2020: Stents to the diagonal branch, mid LAD, and ostial PDA/distal RCA at [facility]. 01/21/2020: Stent to the LAD per Dr. Juarez. Family History Family History Mother Hypertension Diabetes mellitus Cerebrovascular accident Father , Lung carcinoma Carcinoma, lung Social History Social History Social History: Surrogate medical decision maker: Farheen Person, significant other. Code status: Full code. Smoking status: Never smoker Second hand tobacco smoke exposure: Yes Alcohol intake: never Substance use: never Lack of Transportation: No Lack of Food: Never True Current Housing: I Have Housing Concerned About Future Housing: No Difficulty Paying Gas/Electric Bills: No Difficulty Paying for Meds: No Currently Unemployed: No Education: Bachelor's Degree Difficulty w/ Childcare or Family Care: No Additional living arrangements comments: Lives in [place]. Has 2 children. 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 Spiritual care concerns: No Exam Const: General: ill appearing Orientation/consciousness: patient oriented x3 HENMT: Head: normal to inspection Eyes: EOM: EOMs intact bilaterally Neck: Neck: normal visual inspection Chest: Chest palpation & inspection: normal inspection of the chest Resp: Effort & Inspection: retractions and tachypneic Auscultation: crackles bilateral and diffuse Cardio: Rate: tachycardic Rhythm: regular rhythm Heart sounds: Murmur heart sound present GI: GI Palp: Yes Soft to palpation, No Tenderness to palpation present (GI), No Guarding due to palpation present (GI) and No Rigid due to palpation Auscultation: normal bowel sounds Skin: General skin exam: normal color Rashes: no rashes Wounds: no wounds Neuro: General: patient oriented x3, moves all extremities and CN's II-XI intact bilaterally Extrem: General: normal to inspection and no pedal edema Psych: Mental Status: mental status grossly normal Affect: normal affect Atti
[2023-02-02] MEDS: NITROGLYCERIN OINTMENT 1 INCH DOSE TRANSDERM ×2 (13:00→19:27)
[2023-02-02 13:02] LABS: Basophils Absolute Auto 0.1 K/mm3 (0.0-0.1); Basophils Percent Auto 0.4 % (0.2-1.2); Eosinophils Absolute Auto 0.2 K/mm3 (0-0.3); Eosinophils Percent Auto 1.6 % (0-4.4); Hematocrit 54.4 % (42.0-52.0); Hemoglobin 17.2 g/dL (14.0-18.0); Immature Granulocyte Absolute 0.07 K/mm3 (0.00-0.031); Immature Granulocyte Percent A 0.5 % (0-0.5); Lymphocytes Absolute Auto 2.41 K/mm3 (0.9-3.2); Lymphocytes Percent Auto 17.8 % (18.3-44.2); Mean Corpuscular HGB Conc 31.6 g/dl (32-36); Mean Corpuscular Hemoglobin 27.8 pg (26-34); Mean Platelet Volume 10.4 fl (7.4-10.4); Monocytes Absolute Auto 1.2 K/mm3 (0.1-0.6); Monocytes Percent Auto 9.1 % (2.6-8.5); Neutrophils Absolute Auto 9.5 K/mm3 (1.3-6.7); Neutrophils Percent Auto 70.6 % (45.5-73.1); Platelet Count Result 204 k/mm3 (150-375); Red Blood Count 6.18 M/mm3 (4.6-6.20); Red Cell Distribution Width 14.6 % (11.5-14.5); White Blood Count 13.5 K/mm3 (4.5-10.0)
--- NOTE | 2023-02-02 13:05 | ECG_ITS ---
Measurements Intervals [place] Rate: 99 P: 45 VA: 180 QRS: -27 QRSD: 104 T: 86 QT: 343 QTc: 442 Interpretive Statements SINUS RHYTHM WITH FREQUENT VENTRICULAR PREMATURE COMPLEXES/COUPLETS POSSIBLE LEFT ATRIAL ENLARGEMENT [-0.1mV P WAVE IN V1/V2] PREVIOUS iNFERIOR MYOCARDIAL INFARCTION , OF INDETERMINATE AGE [40+ ms Q WAVE AND/OR ST/T ABNORMALITY IN II/aVF] PREVIOUS aNTEROSEPTAL MYOCARDIAL INFARCTION , OF INDETERMINATE AGE [40+ ms Q WAVE IN V1-V4] NONSPECIFIC ST AND T-WAVE ABNORMALITY ABNORMAL ECG COMPARED TO ECG 02/02/2023 12:45:50 NO CHANGE Electronically Signed On 02-03-2023 7:30:49 COMMUNICATION LECTURER by Matt Juarez M.D.
[2023-02-02] MEDS: ENALAPRILAT 1.25 MG/ML VIAL 2.5 MG IV PUSH (13:06)
[2023-02-02] MEDS: FUROSEMIDE INJ 100 MG/10 ML VIAL 80 MG IV PUSH (13:09)
[2023-02-02 13:19] LABS: Alanine Aminotransferase 21 U/L (6-50); Albumin Level 4.8 g/dL (3.5-5.1); Alkaline Phosphatase 113 U/L (38-126); Anion Gap 12 mmol/L (8-16); Aspartate Amino Transferase 27 U/L (17-59); Bilirubin,Total 1.3 mg/dL (0.2-1.3); Blood Urea Nitrogen 10 mg/dL (9-20); Calcium 9.4 mg/dL (8.4-10.2); Carbon Dioxide 24 mmol/L (22-30); Chloride 106 mmol/L (98-107); Estimated CRCL calculation 75 ml/min; Estimated Glomerular Filt Rate > 60; Glucose 301 mg/dL (65-110); Magnesium 2.1 mg/dL (1.6-2.3); Sodium 142 mmol/L (137-145)
[2023-02-02 13:24] LABS: Alveolar/Arterial O2 Gradient 167.6 mmHg; Base Excess ABG -0.8 mEq/l (+/-2.0); Carboxyhemoglobin 0.8 % THb (0-2.0); Fractional Inspired Oxygen 45 %; HCO3 ABG 24.5 mEq/l (22.0-26.0); Methemoglobin ABG 0.3 %THb (0-1.5); Oxygen Saturation ABG 97.6 % (95.0-100.0); Oxyhemoglobin 96.4 % THb (90.0-100.0); PO2 ABG 104.3 mmHg (80.0-100.0); PO2 FiO2 Ratio Arterial Blood 2.32 %; Reduced Hemoglobin 2.5 %THb (0-5.0); Total Hemoglobin 16.9 g/dL (12.0-18.0); pH ABG 7.374 (7.350-7.450)
[2023-02-02 13:25] LABS: NT Pro B Type Natriuretic Pept 3050 pg/mL (19.9-100); Troponin I < 0.012 ng/mL (0.000-0.034)
[2023-02-02 13:25] LABS: Device NON-INVASIVE VENT; Modified Allen's Test Pass; Site Drawn LEFT RADIAL
[2023-02-02 13:27] LABS: Non-Invasive Expiratory Pressure 8 CMH2O; Non-Invasive Inspiratory Pressure 16 CMH2O; Non-Invasive Vent Rate 20 /MIN
[2023-02-02 13:37] LABS: Influenza A QL RT-PCR Negative (Negative); Influenza B QL RT-PCR Negative (Negative); RSV RNA, RT-PCR Negative (Negative); SARS-CoV-2 RNA PCR Negative (Negative)
[2023-02-02] MEDS: hydrALAZINE HCL 20 MG/ML VIAL IV PUSH (13:57)
[2023-02-02 13:59] LABS: INR 0.9; Prothrombin Time 12.8 Seconds (11.1-14.7)
[2023-02-02 14:04] LABS: Partial Thromboplastin Time 29.3 SECONDS (22.3-36.8)
--- NOTE | 2023-02-02 15:50 | ADMGEN ---
This patient, Shree Chapman, was admitted to IMU Room 206-02. Patient/family oriented to hospital policies and general routines including ID bracelet, bed and alarms, visiting hours, pain management, procedures, bathroom and other care routines, personal items, smoking policy, room service/diet, and visiting hours. Information on how to activate the Rapid Response Team has been discussed. Patient/Family are encouraged to report perceived risks to care and to ask questions if they do not understand what they are told or what they should do.
--- NOTE | 2023-02-02 16:02 | PM.IMHP ---
H&P: HPI History of Present Illness Date/Time: 02/02/23 14:45 Chief Complaint: Shortness of breath. Narrative: This is a very pleasant 77-year-old male with coronary artery disease and history of multivessel percutaneous interventions, type 2 diabetes mellitus, hypothyroidism, and hypertension who presented to the emergency department via EMS from home for evaluation of shortness of breath. The patient provides the following history. Over the last week or so he has noticed a small amount of swelling in his feet, orthopnea, and increasing shortness of breath with exertion. Today his shortness of breath suddenly worsened and he felt as though he was not able to get in a deep breath. He took full-dose aspirin and sublingual nitroglycerin at home without much benefit. On EMS arrival he was in respiratory distress with an SpO2 of 88% on room air. He was started on CPAP and transition to BiPAP on arrival to the ED. The BiPAP seems to have helped him the most. Workup in the ED was significant for a WBC count of 13.5, troponin less than 0.012, proBNP 3050. He tested negative for influenza, RSV, and COVID. Chest x-ray showed pulmonary edema and cardiomegaly. Blood pressures have been as high as 221/134. He received furosemide 80 mg IV, hydralazine 20 mg IV, and enalaprilat 2.5 mg. He is being admitted in this setting for further treatment of CHF exacerbation and hypertensive urgency. At the time my evaluation he feels much better on BiPAP. He has had good urine output with the Lasix. With further questioning he does indicate that he is not always compliant with his home medications for unclear reasons. He denies fever, chills, sweats, syncope, near syncope, exertional chest pain, pleuritic pain, sensations of racing heart, palpitations, nausea, and vomiting. Review of Systems Review of Systems: Twelve systems were reviewed and are negative except for as per HPI. 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 Type 2 diabetes mellitus Surgical History Surgical History History of cardiac catheterization History of coronary artery stent placement 06/27/2020: Stents to the diagonal branch, mid LAD, and ostial PDA/distal RCA at [facility]. 01/21/2020: Stent to the LAD per Dr. Juarez. Family History Family History Mother Hypertension Diabetes mellitus Cerebrovascular accident Father , Lung carcinoma Carcinoma, lung Social History Social History Social History: Surrogate medical decision maker: Farheen Person, significant other. Code status: Full code. Smoking status: Never smoker Second hand tobacco smoke exposure: Yes Alcohol intake: never Substance use: never Lack of Transportation: No Lack of Food: Never True Current Housing: I Have Housing Concerned About Future Housing: No Difficulty Paying Gas/Electric Bills: No Difficulty Paying for Meds: No Currently Unemployed: No Education: Bachelor's Degree Difficulty w/ Childcare or Family Care: No Additional living arrangements comments: Lives in [place]. Has 2 children. 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 Spiritual care concerns: No Meds Home Medications and Allergies Home Medications Medication Instructions Recorded Confirmed Type aspirin 81 mg chewable tablet 81 mg PO DAILY@0800 #30 tabs 01/22/20 02/02/23 Rx (Children's Aspirin) clopidogrel 75 mg tablet 75 mg PO DAILY #30 tabs 01/22/20 02/02/23 Rx levothyroxine 50 mcg capsule 50 mcg PO DAILY #30 caps 01/22/20 02/02/23 Rx metoprolol succinate 100 mg 100 mg PO DAILY #30 tabs 01/22/20 02/02/23 Rx tablet,ext
[2023-02-02 16:52] LABS: Glucose Point of Care 229 mg/dl (65-105)
[2023-02-02] MEDS: FUROSEMIDE INJ 40 MG/4 ML VIAL IV PUSH (20:20)
[2023-02-02] MEDS: EZETIMIBE 10 MG TABLET PO (20:20)
[2023-02-02 20:46] LABS: Hemoglobin A1C 7.7 % (<5.7)
--- NOTE | 2023-02-02 21:28 | ECG_ITS ---
Measurements Intervals [place] Rate: 85 P: 36 IN: 174 QRS: -16 QRSD: 111 T: 122 QT: 391 QTc: 467 Interpretive Statements SINUS RHYTHM WITH FREQUENT VENTRICULAR PREMATURE COMPLEXES INCLUDING NONSUSTAINED VENTRICULAR TACHYCARDIA POSSIBLE LEFT ATRIAL ENLARGEMENT [-0.1mV P WAVE IN V1/V2] SEPTAL MYOCARDIAL INFARCTION [40+ ms Q WAVE IN V1/V2], OF INDETERMINATE AGE MODERATE T-WAVE ABNORMALITY, CONSIDER LATERAL ISCHEMIA [-0.1+ mV T WAVE IN I/aVL/V5/V6] ABNORMAL ECG COMPARED TO ECG 02/02/2023 13:05:42 NO SIGNIFICANT CHANGES Electronically Signed On 02-03-2023 7:37:54 MUNITIONS WORKER by Matt Juarez M.D.
[2023-02-02] MEDS: METOPROLOL SUCCINATE EXT REL 50 MG TABCR PO (22:42)
[2023-02-02] MEDS: ENOXAPARIN 100 MG/ML SYRINGE SUB-Q (22:43)
[2023-02-03] VITALS (17 sets, daily range): BP systolic 139–174; BP diastolic 54–100; PULSE 59–100; RESP 14–18; TEMP 35.9–37.1; O2SAT 94–100
[2023-02-03] MEDS: NITROGLYCERIN OINTMENT 1 INCH DOSE TRANSDERM ×3 (00:30→15:13)
[2023-02-03 00:36] LABS: Glucose Point of Care 140 mg/dl (65-105)
[2023-02-03 04:46] LABS: Basophils Absolute Auto 0.1 K/mm3 (0.0-0.1); Basophils Percent Auto 0.5 % (0.2-1.2); Eosinophils Absolute Auto 0.2 K/mm3 (0-0.3); Eosinophils Percent Auto 1.7 % (0-4.4); Hematocrit 49.9 % (42.0-52.0); Hemoglobin 16.2 g/dL (14.0-18.0); Immature Granulocyte Absolute 0.02 K/mm3 (0.00-0.031); Immature Granulocyte Percent A 0.2 % (0-0.5); Lymphocytes Absolute Auto 1.83 K/mm3 (0.9-3.2); Lymphocytes Percent Auto 18.4 % (18.3-44.2); Mean Corpuscular HGB Conc 32.5 g/dl (32-36); Mean Corpuscular Volume 86.2 fl (80-100); Mean Platelet Volume 10.7 fl (7.4-10.4); Monocytes Percent Auto 10.3 % (2.6-8.5); Neutrophils Absolute Auto 6.9 K/mm3 (1.3-6.7); Neutrophils Percent Auto 68.9 % (45.5-73.1); Platelet Count Result 205 k/mm3 (150-375); Red Blood Count 5.79 M/mm3 (4.6-6.20); Red Cell Distribution Width 14.6 % (11.5-14.5)
[2023-02-03 04:57] LABS: Alanine Aminotransferase 17 U/L (6-50); Albumin Level 4.1 g/dL (3.5-5.1); Alkaline Phosphatase 96 U/L (38-126); Anion Gap 8 mmol/L (8-16); Aspartate Amino Transferase 48 U/L (17-59); Bilirubin,Total 1.6 mg/dL (0.2-1.3); Blood Urea Nitrogen 13 mg/dL (9-20); Calcium 9.3 mg/dL (8.4-10.2); Carbon Dioxide 29 mmol/L (22-30); Chloride 104 mmol/L (98-107); Estimated CRCL calculation 71 ml/min; Estimated Glomerular Filt Rate > 60; Glucose 143 mg/dL (65-110); Magnesium 2.1 mg/dL (1.6-2.3); Potassium 3.1 mmol/L (3.4-5.0); Sodium 141 mmol/L (137-145)
[2023-02-03] MEDS: LEVOTHYROXINE SODIUM 50 MCG TABLET PO (05:33)
--- NOTE | 2023-02-03 09:26 | PM.IMPN ---
Progress Note: A&P Assessment and Plan (1) Acute hypoxemic respiratory failure: Code(s): J96.01 - Acute respiratory failure with hypoxia Status: Acute (2) Hypertensive urgency: Code(s): I16.0 - Hypertensive urgency Status: Acute (3) Non-ST elevation [place] (NSTEMI): Code(s): I21.4 - Non-ST elevation (NSTEMI) myocardial infarction Status: Acute (4) Pulmonary edema: Qualifiers: Chronicity: acute Qualified Code(s): J81.0 - Acute pulmonary edema Code(s): J81.1 - Chronic pulmonary edema Status: Acute (5) Coronary artery disease: Code(s): I25.10 - Atherosclerotic heart disease of [place] coronary artery without angina pectoris Status: Acute (6) Type 2 diabetes mellitus: Code(s): E11.9 - Type 2 diabetes mellitus without complications Status: Acute (7) Hypothyroidism: Code(s): E03.9 - Hypothyroidism, unspecified Status: Acute Plan Acute respiratory failure, acute heart failure Likely resulting from hypertension emergency The patient presented to the emergency department via EMS for evaluation of shortness of breath, orthopnea, and edema Labs, imaging, EKG, and all reports were personally reviewed. currently on BiPAP with significant improvement. Chest x-ray showed pulmonary edema c/w furosemide 40 mg IV b.i.d. for diuresis. monitor Renal function, volume status, electrolytes will be monitored closely. Order echocardiogram now pt is off BIPAP and on 1l O2 Hypertension urgency Blood pressures have been as high as 221/134 Received hydralazine 20 mg IV push once Continue metoprolol 100 mg daily p.o., start losartan 50 mg daily p.o. Blood pressure is controlled now Elevated troponin Initial troponin was negative but did jump to 0.7 >5.522 not having any chest pain whatsoever and I suspect this is related to his severe hypertension and hypoxia. Has history of coronary artery disease and multiple stents trend troponins to peak consult [facility] Cardiology for their opinion. Continue dual anti-platelet therapy. Nitroglycerin sublingual p.r.n. Telemetry monitoring Cardiology saw exam patient today, recommend to transfer patient to [facility] for evaluation and treatment, no recommendations regarding treatments and diagnosis at [facility] Type 2 diabetes hold metformin in case he requires cardiac catheterization. Continue dapagliflozin. Initiate sliding scale insulin, Accu-Cheks, and hypoglycemic protocol. Check hemoglobin A1c. Acquired hypothyroidism Continue levothyroxine and check TSH. . Subjective Date/time seen: 02/03/23 09:26 Interval history: I saw exam patient today, patient feels dyspnea is improving after receiving Lasix, patient has negative input output balance 2.9 L. patient also denies chest pain, palpitation, lightheadedness, focal weakness. Exam Narrative: GENERAL: Pleasant, in no acute distress. Well-nourished. - EYES: EOMI. Anicteric. - HENT: Moist mucous membranes. - LUNGS: Crackles bilateral base, no wheezing, rhonchi, or rales. - CARDIOVASCULAR: Regular rate and rhythm. No murmur. No JVD. - ABDOMEN: Soft, non-tender and non-distended. No palpable masses. - EXTREMITIES: Bilateral lower extremities 2+ edema. Peripheral pulses 2+. Non-tender. - NEUROLOGIC: No focal neurological deficits. CN II-XII grossly intact. - PSYCHIATRIC: Awake, Alert and oriented x 3. Appropriate mood and affect. - SKIN: No rashes or lesions. Warm. - LYMPH: No cervical lymphadenopathy. Objective Data Vital Signs Vital Signs: Vital Signs - 24 hr 02/02/23 12:45 02/02/23 12:52 02/02/23 13:01 Temperature Pulse Rate 114 H 105 H Respiratory Rate 41 H 24 H Blood Pressure 221/134 H 215/157 H Pulse Oximetry 97 97 100 Oxygen Delivery CPAP BiPAP Oxygen Flow Rate 02/02/23 12:56 02/02/23 13:30 02/02/23 14:24 Temperature Pulse Rate 104 H 94 91 Respiratory Rate 34 H 24 H 28 H
--- NOTE | 2023-02-03 09:45 | PM.CNCAR ---
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 He also has had previous stent in his LAD on 2 occasions with in stent lesion stented about 3 years ago. He is now following with cardiovascular care elsewhere. He comes [facility] with significant dyspnea, left-sided heart failure which is improved with diuresis and has had a moderate troponin rise. Obviously progression in his left coronary disease is of significant concern. He should undergo follow-up angiography. Given the fact that he has the above-described complex anatomy including known in stent stenosis in his LAD several years ago ideally his follow-up angiogram should be done at a center where more advanced interventional and or surgical revascularization is available. Furthermore he is an established patient of [facility] at this time. He should in my opinion be transferred to their care for arranging for follow-up angiography at this time. For the time being I would keep him anticoagulated with Lovenox as well as keep him on dual anti-platelet therapy. Matt Juarez MD [facility] History of Present Illness History of Present Illness Consult date/time: 02/03/23 09:45 Reason For Visit: Acute Respiratory Failure/CHF Narrative: This is a 77-year-old man with chronic coronary artery disease I am seeing at the request of the hospitalist because of decompensated heart failure as well as evidence of non ST elevation SD. The patient is known to me from previous PCI here 3 years ago at [facility] but had failed follow-up in our office since then and has now been established with a auger machine offbearer in the [facility]. He has a history of coronary disease with percutaneous revascularization more than 20 years ago at [facility]. I saw this patient in 2019 here at [facility] with of ischemic chest pain and angiography at that time demonstrated a high-grade in stent stenosis in the LAD as well as a chronic total occlusion of the right coronary artery which received [id number] collateral filling. He was treated at that time with another drug-eluting stent to the in stent the lesion in his LAD with a good anatomical result. He was at that time seen in the office once for follow-up after that and was doing well. The possibility of considering CYCLE COUNTER intervention the right coronary artery was discussed and he was referred to a colleague at [facility] but never made that appointment. More recently he has been referred by his PCP to a auger machine offbearer that is part of [facility] who sees him in the [place] office. The patient is not a aware of the name of that pyysician. He states that recently in follow-up in the office he had been told or least given the impression that things were stable. He came to [facility] yesterday was seen in the emergency room with significant shortness of breath air hunger as well as some mild retrosternal chest pain. He was in some decompensated left-sided failure at the time of it evaluation was treated with BiPAP the urgently and given some intravenous furosemide later through the course of the evening he became much more comfortable he was no longer experiencing significant air hunger and is chest tightness had resolved. Of concern is his electrocardiogram demonstrates frequent ventricular ectopic activity which is asymptomatic and his troponin level pancho to over 5. I was notified of that last evening and recommended
[2023-02-03 10:05] LABS: Glucose Point of Care 155 mg/dl (65-105)
[2023-02-03] MEDS: LOSARTAN POTASSIUM 50 MG TABLET PO (10:28)
[2023-02-03] MEDS: POTASSIUM CHLORIDE 20 MEQ ER TABLET 40 MEQ PO (10:28)
[2023-02-03] MEDS: CLOPIDOGREL BISULFATE 75 MG TABLET PO (10:29)
[2023-02-03] MEDS: SPIRONOLACTONE 25 MG TABLET PO (10:29)
[2023-02-03] MEDS: GLIMEPIRIDE 2 MG TABLET PO (10:29)
[2023-02-03] MEDS: FUROSEMIDE INJ 40 MG/4 ML VIAL IV PUSH ×2 (10:29→21:10)
[2023-02-03] MEDS: METOPROLOL SUCCINATE EXT REL 100 MG TABCR PO (10:29)
[2023-02-03] MEDS: ENOXAPARIN 100 MG/ML SYRINGE SUB-Q (10:29)
[2023-02-03] MEDS: ASPIRIN 81 MG CHEWABLE TABLET PO (10:30)
[2023-02-03 12:13] LABS: Glucose Point of Care 347 mg/dl (65-105)
[2023-02-03 14:56] LABS: Basophils Percent Auto 0.4 % (0.2-1.2); Eosinophils Absolute Auto 0.2 K/mm3 (0-0.3); Eosinophils Percent Auto 1.4 % (0-4.4); Hemoglobin 16.5 g/dL (14.0-18.0); Immature Granulocyte Absolute 0.05 K/mm3 (0.00-0.031); Immature Granulocyte Percent A 0.5 % (0-0.5); Lymphocytes Absolute Auto 1.82 K/mm3 (0.9-3.2); Lymphocytes Percent Auto 17.6 % (18.3-44.2); Mean Corpuscular HGB Conc 32.4 g/dl (32-36); Mean Corpuscular Hemoglobin 27.9 pg (26-34); Mean Corpuscular Volume 86.3 fl (80-100); Mean Platelet Volume 10.1 fl (7.4-10.4); Monocytes Percent Auto 9.9 % (2.6-8.5); Neutrophils Absolute Auto 7.3 K/mm3 (1.3-6.7); Neutrophils Percent Auto 70.2 % (45.5-73.1); Platelet Count Result 225 k/mm3 (150-375); Red Blood Count 5.91 M/mm3 (4.6-6.20); Red Cell Distribution Width 14.5 % (11.5-14.5); White Blood Count 10.4 K/mm3 (4.5-10.0)
[2023-02-03 15:06] LABS: Partial Thromboplastin Time 43.9 SECONDS (22.3-36.8); Partial Thromboplastin Time 45.7 SECONDS (22.3-36.8)
--- NOTE | 2023-02-03 15:16 | PM.TDS ---
Transfer Discharge Sum: Prov Provider Date of admission: 02/02/23 14:21 Primary care physician: UNKNOWN,DOCTOR Admitting clinician: Fabiola Jovel DO Consults: 02/02/23 Consult to Physician Routine Comment: Called exchange and notified them of consult Consulting Provider: Javy Person mail caller/MD group to consult: [facility] cardiology Reason for consultation: elevated troponin Has provider been notified: Yes DS: Admitting Diagnosis Discharge Date 02/03/23 Admitting Diagnosis (1) Non-ST elevation [place] (NSTEMI): ?Code(s): I21.4 - Non-ST elevation (NSTEMI) myocardial infarction ?Status:?Acute (2) Congestive heart failure: ?Qualifiers: ?Heart failure chronicity:?acute ?Code(s): I50.9 - Heart failure, unspecified ?Status:?Acute DS: Discharge Diagnosis Discharge Diagnosis (1) Acute hypoxemic respiratory failure: Code(s): J96.01 - Acute respiratory failure with hypoxia Status: Acute (2) Hypertensive urgency: Code(s): I16.0 - Hypertensive urgency Status: Acute (3) Non-ST elevation [place] (NSTEMI): Code(s): I21.4 - Non-ST elevation (NSTEMI) myocardial infarction Status: Acute (4) Pulmonary edema: Qualifiers: Chronicity: acute Qualified Code(s): J81.0 - Acute pulmonary edema Code(s): J81.1 - Chronic pulmonary edema Status: Acute (5) Coronary artery disease: Code(s): I25.10 - Atherosclerotic heart disease of [place] coronary artery without angina pectoris Status: Acute (6) Type 2 diabetes mellitus: Code(s): E11.9 - Type 2 diabetes mellitus without complications Status: Acute (7) Hypothyroidism: Code(s): E03.9 - Hypothyroidism, unspecified Status: Acute Plan . Transfer Discharge Sum: Med Medications Active and Home Medications: Home Medications aspirin 81 mg chewable tablet (Children's Aspirin) 81 mg PO DAILY@0800 #30 tabs 01/22/20 [Rx Confirmed 02/02/23] clopidogrel 75 mg tablet 75 mg PO DAILY #30 tabs 01/22/20 [Rx Confirmed 02/02/23] levothyroxine 50 mcg capsule 50 mcg PO DAILY #30 caps 01/22/20 [Rx Confirmed 02/02/23] metoprolol succinate 100 mg tablet,extended release 24 hr 100 mg PO DAILY #30 tabs 01/22/20 [Rx Confirmed 02/02/23] nitroglycerin 0.4 mg sublingual tablet 0.4 mg sublingual Q5M PRN chest pain #25 tabs 01/22/20 [Rx Confirmed 02/02/23] spironolactone 25 mg tablet 25 mg PO DAILY #30 tabs 01/22/20 [Rx Confirmed 02/02/23] dapagliflozin propanediol 10 mg tablet (Darlenega) 10 mg PO DAILY 02/02/23 [History Confirmed 02/02/23] ezetimibe 10 mg tablet 10 mg PO HS 02/02/23 [History Confirmed 02/02/23] glimepiride 2 mg tablet 2 mg PO BID 02/02/23 [History Confirmed 02/02/23] metformin 500 mg tablet 1,000 mg PO BID 02/02/23 [History Confirmed 02/02/23] Active Medications Acetaminophen (Acetaminophen 325 Mg Tablet) 650 mg PO Q6H PRN PRN Reason: Mild Pain (1-3) or Fever Aspirin (Aspirin 81 Mg Chewable Tablet) 81 mg PO DAILY@0800 [facility] Last Admin: 02/03/23 10:30 Dose: 81 mg Clopidogrel Bisulfate (Clopidogrel Bisulfate 75 Mg Tablet) 75 mg PO DAILY [facility] Last Admin: 02/03/23 10:29 Dose: 75 mg Dextrose (Dextrose 50% 25 Gm/50 Ml Syringe) 12.5 gm IV PUSH PRN PRN; Protocol PRN Reason: Hypoglycemia Ezetimibe (Ezetimibe 10 Mg Tablet) 10 mg PO HS [facility] Last Admin: 02/02/23 20:20 Dose: 10 mg Empagliflozin (Empagliflozin 25 Mg Tablet) 25 mg PO DAILY [facility] Enoxaparin Sodium (Enoxaparin 100 Mg/Ml Syringe) 100 mg SUB-Q Q12HR [facility] Last Admin: 02/03/23 10:29 Dose: 100 mg Furosemide (Furosemide Inj 40 Mg/4 Ml Vial) 40 mg IV PUSH Q12HR [facility] Last Admin: 02/03/23 10:29 Dose: 40 mg Glimepiride (Glimepiride 2 Mg Tablet) 2 mg PO BID [facility] Last Admin: 12/16/23 10:29 Dose: 2 mg Glucagon (Glucagon For Inj 1 Mg Vial) 1 mg IM PRN PRN; Protocol PRN Reason: Hypoglycemia Glucose (Glucose Oral Gel 15 Gm Of Glucse In 37.5 Gm Tube) 15 gm PO PRN PRN; Protocol PRN R
[2023-02-03] MEDS: EMPAGLIFLOZIN 25 MG TABLET PO (15:18)
[2023-02-03 16:38] LABS: Glucose Point of Care 76 mg/dl (65-105)
[2023-02-03 17:53] LABS: Glucose Point of Care 200 mg/dl (65-105)
--- NOTE | 2023-02-03 21:05 | PC.NURSE ---
Called [facility] for update of ETA at 2144 and they stated [facility] was on site. As of 2104 there have been no signs of [facility] at facility, called for update and was again told they should be onsite. Dispatch to contact crew.
[2023-02-03] MEDS: EZETIMIBE 10 MG TABLET PO (21:09)
[2023-02-03] MEDS: INSULIN ASPART (*BKC) 100 UNITS/ML SUB-Q (21:10)
[2023-02-03 22:57] LABS: Glucose Point of Care 201 mg/dl (65-105)
--- NOTE | 2023-02-03 23:52 | PC.NURSE ---
2215 Report given to EMS. Patient transferred.
== END 2023-02-03 22:20 | disposition short-term general hospital (02) | DRG 280 ==
LOC: ANHED 13:26 → ANHIMU 14:59
PROVIDERS: Physician Assistant; Admitting Provider Student in an Organized Health Care Education/Training Program; Emergency Provider General Practice; Visit Provider Hospitalist
DX: I11.0 Hypertensive heart disease with heart failure (principal); I21.4 Non-ST elevation (NSTEMI) myocardial infarction; J96.01 Acute respiratory failure with hypoxia; I16.1 Hypertensive emergency; I50.9 Heart failure, unspecified; Z91.148 Patient's other noncompliance with medication regimen for other reason; I25.10 Atherosclerotic heart disease of native coronary artery without angina pectoris; E03.9 Hypothyroidism, unspecified; E11.9 Type 2 diabetes mellitus without complications; Z20.822 Contact with and (suspected) exposure to COVID-19; Z95.5 Presence of coronary angioplasty implant and graft; Z85.21 Personal history of malignant neoplasm of larynx; Z79.82 Long term (current) use of aspirin
CPT/HCPCS: 36415; 36600; 71045; 80053; 82375; 82805; 82948; 83036; 83050; 83605; 83735; 83880; 84443; 84484; 85025; 85610; 85730; 87637; 93005; 94002; 96374; 96375; 99291; A9270; J0360; J1650; J1815; J1940

== ENCOUNTER 2024-01-07 22:55 | Inpatient (IN) | payer MEDICARE, SELFPAY ==
--- NOTE | ~2024-01-07 | CT_ITS ---
Clinical Indication: Respiratory failure CT Scan of the Chest with Contrast: Technique: Contiguous sections were acquired throughout the chest after intravenous administration of 100 cc of Omnipaque 350. Dose reduction technique was used on this scan by utilizing automated expos ure control and iterative reconstruction technique. The dose-length product (DLP) was 1009.08 mGy-cm. COMPARISON: 01/20/2020 Findings: There is no evidence of any significant mediastinal, hilar or axillary lymphadenopathy. There is no f illing defect in the pulmonary arterial tree to suggest pulmonary embolus. There is no evidence of ao rtic dissection or aneurysm. No pericardial effusion. There are small bilateral pleural effusions with extensive dependent consolidation, compatible with a telectasis/pulmonary edema. There is additional patchy airspace consolidation and groundglass opacity in the right lungs, which could reflect pulmonary edema versus pneumonia. Images through the upper abdomen reveal no abnormalities. Impression: No evidence of pulmonary embolus, aortic dissection, or aortic aneurysm. Small bilateral pleural effusions with extensive presumed bibasilar dependent atelectasis, versus pne umonia. Patchy airspace consolidation and ground glass opacity in the aerated lungs, which could represent pu lmonary edema versus pneumonia. Reviewed, dictated and finalized at [facility]. . OPERATIONS MANAGER Impression: No evidence of pulmonary embolus, aortic dissection, or aortic aneurysm. Small bilateral pleural effusions with extensive presumed bibasilar dependent a telectasis, versus pneumonia. Patchy airspace consolidation and ground glass opacity in the aerated lungs, wh ich could represent pulmonary edema versus pneumonia.
--- NOTE | ~2024-01-07 | XR_ITS ---
Portable chest x-ray Comparison: 01/07/2024 at 11:33 PM Clinical History: ET tube placement Findings: Endotracheal tube and NG tube appear in satisfactory positions. There is moderate to advan nola pulmonary edema pattern with central congestive change. Cardiomediastinal silhouette is stable. Bones and soft tissues are unremarkable. Impression: Support tubes, as above. Moderate to advanced pulmonary edema pattern with central congestive change. Reviewed, dictated and finalized at [facility]. OGRAMMETRIC SURVEYOR Impression: Support tubes, as above. Moderate to advanced pulmonary edema pattern with central congestive change.
--- NOTE | ~2024-01-07 | XR_ITS ---
Upright portable view of the abdomen Clinical history: NG tube placement Findings: NG tube in satisfactory position. Bowel gas pattern is nonspecific. No evidence for obstruc tion or free air. No abnormal mass lesion or calcification is seen. Osseous structures are intact. Impression: NG tube in satisfactory position. Reviewed, dictated and finalized at [facility]. EDIENT HANDLER Impression: NG tube in satisfactory position.
--- NOTE | ~2024-01-07 | XR_ITS ---
EXAMINATION: XR chest ET placement DATE: 01/07/2024 23:38 INDICATION: Intubation. TECHNIQUE: A single frontal view of the chest was obtained on 2 radiographs. COMPARISON: Chest single view 02/02/2023 FINDINGS: There is a diffuse interstitial pattern in the lungs. There are perihilar airspace opacitie s bilaterally. No pleural effusion or pneumothorax. Cardiomegaly is noted. The endotracheal tube tip is at the thoracic inlet, 12.7 cm from the shabnam. IMPRESSION: 1. Endotracheal tube tip at the thoracic inlet, 12.7 cm from the shabnam. 2. Diffuse lung disease, likely moderate pulmonary edema. 3. Cardiomegaly. Reviewed, dictated and finalized at location A. F RESPIRATORY THERAPIST
--- NOTE | ~2024-01-07 | CT_ITS ---
Non-contrast Head CT History: Postarrest Technique: Axial non-contrast imaging of the brain was performed. Dose reduction technique was used on this scan by utilizing automated exposure control and iterative reconstruction technique. The dose -length product (DLP) was 681.00 mGy-cm. Findings: There is no evidence of intracranial hemorrhage, mass lesion, or acute infarct. Brain par enchyma appears normal. The ventricles and subarachnoid spaces are normal in size. The calvarium ap pears normal. The visualized paranasal sinuses and mastoid air cells are clear. Impression: No significant abnormality seen. Reviewed, dictated and finalized at location . E COLLECTOR Impression: No significant abnormality seen.
[2024-01-07 22:49] VITALS: BP 150/120; PULSE 160; RESP 40; O2SAT 80
[2024-01-07 23:00] VITALS: PULSE 106; O2SAT 95
--- NOTE | 2024-01-07 23:51 | ECG_ITS ---
Test Date: 2024-01-07 23:51:29 Measurements Intervals [place] Rate: 113 P: 0 MT: 0 QRS: -61 QRSD: 147 T: 114 QT: 377 QTc: 518 Interpretive Statements WIDE COMPLEX TACHYCARDIA CHANGES TO SINUS RHYTHM WITH VENTRICULAR BIGEMINY CHANGES TO WIDE COMPLEX TACHYCARDIA INTRAVENTRICULAR CONDUCTION DELAY ANTEROSEPTAL INFARCT, AGE INDETERMINATE ABNORMAL ECG No previous ECG available for comparison Electronically Signed On 01-08-2024 06:43:57 TIMBER SETTER by Cheng Gonzalez D.O.
[2024-01-07 23:57] VITALS: BP 148/118; PULSE 109
[2024-01-07] MEDS: AMIODARONE 360 MG/D5W 200 ML 360 MG/200 ML BAG 33.33 MG IV CONT (23:57)
[2024-01-08] VITALS (30 sets, daily range): BP systolic 83–208; BP diastolic 54–127; PULSE 79–114; RESP 21–32; TEMP 38.1–38.7; O2SAT 95–100; BMI 34.2
[2024-01-08] MEDS: PROPOFOL IV EMULSION 100 ML 3.42 MG IV CONT (00:12)
--- NOTE | 2024-01-08 00:16 | ED_ITS ---
HPI - Chest Pain General Chief Complaint: Chest Pain Stated Complaint: CP, SOB, HI B/P, CPAP'd PER EMS History of Present Illness HPI narrative: Patient is a 78-year-old male who presents to the emergency department this evening via EMS in respiratory distress. EMS states that they were called for shortness of breath and chest pain. Reportedly, patient was eating the pizza when he started to develop some shortness of breath and started to complain of some chest pain. Upon EMS arrival, patient was tachypneic breathing at a rate of 50 breaths per minute. Patient was requesting that EMS provide him with nitroglycerin multiple times in EMS staff informed him that they need to obtain vitals 1st. Per patient's girlfriend, patient has been complaining of angina for the past few days and has not been feeling well. Recently ran out of his nitroglycerin. Patient was placed on a CPAP and EMS states that initially this did improve patient's symptoms, however, while they were pulling into the ambulance [place] patient became unresponsive. As patient was wheeled into the room, patient was not responding to any questions and appeared cyanotic with agonal respirations. Patient was immediately moved to the stretcher and CPAP removed. Bag mask ventilation initiated, respiratory called to bedside. Patient lost pulses and CPR was initiated. Related Data Home Medications Medication Instructions Recorded Confirmed dapagliflozin propanediol 10 mg 10 mg PO DAILY 02/02/23 02/02/23 tablet (Farxiga) ezetimibe 10 mg tablet 10 mg PO HS 02/02/23 02/02/23 glimepiride 2 mg tablet 2 mg PO BID 02/02/23 01/08/24 metformin 500 mg tablet 1,000 mg PO BID 02/02/23 01/08/24 dulaglutide 3 mg/0.5 mL 3 mg subcut WEEKLY 01/08/24 01/08/24 subcutaneous pen injector ([facility]) isosorbide mononitrate 30 mg mg PO 01/08/24 tablet,extended release 24 hr rosuvastatin 40 mg tablet 40 mg PO DAILY 01/08/24 01/08/24 Allergies Allergy/AdvReac Type Severity Reaction Status Date / Time No Known Allergies Allergy Verified 01/08/24 06:02 Review of Systems Review of Systems: All systems are reviewed and are negative unless stated otherwise in the HPI. 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 Type 2 diabetes mellitus Surgical History Surgical History History of cardiac catheterization History of coronary artery stent placement 06/27/2020: Stents to the diagonal branch, mid LAD, and ostial PDA/distal RCA at [facility]. 01/21/2020: Stent to the LAD per Dr. Juarez. Family History Family History Mother Diabetes mellitus Hypertension Father , Lung carcinoma Carcinoma, lung Sibling Kidney failure Heart attack Afib Social History Social History Social History: Surrogate medical decision maker: Farheen Person, significant other. Code status: Full code. Smoking status: Never smoker Second hand tobacco smoke exposure: Yes Alcohol intake: never Substance use: never Do You Feel Safe in your Home?: Yes Lack of Transportation: No Lack of Food: Never True Current Housing: I Have Housing Concerned About Future Housing: No Difficulty Paying Gas/Electric Bills: No Difficulty Paying for Meds: No Currently Unemployed: No Education: Bachelor's Degree Difficulty w/ Childcare or Family Care: No Additional living arrangements comments: Lives in [place]. Has 2 children. 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 Spiritual care concerns: No Exam Narrative: General: Unresponsive, cyanotic, HEENT: PERRL, no rhinorrhea, no post nasal drip, food and large amounts of mucus within the oropharynx. Neck: Trachea midline, no JVD, no lymphadenopathy. Cardio/Resp: CPR in progress. Abdomen: Soft, nontender, nondistended, no rebound, no guarding, no peritoneal signs. Musculoskeletal: No joint swelling or deformity, normal muscle tone. Skin: No rashes or petechia, no signs of infection. Neurological: Unable to assess at this time. Course Vital Signs Vital signs: Vital Signs Pulse Rate 160 H 01/07/24 22:49 Respiratory Rate 40 H 01/07/24 22:49 Blood Pressure 150/120 H 01/07/24 22:49 Pulse Oximetry 80 L 01/07/24 22:49 Oxygen Delivery Room Air 01/07/24 22:49 Temperature 101.7 F H 01/08/24 14:00 Pulse Rate 94 01/08/24 14:00 Respiratory Rate 24 H 01/08/24 14:00 Blood Pressure 91/64 L 01/08/24 14:00 Pulse Oximetry 99 01/08/24 14:00 Oxygen Delivery Mechanical Ventilation 01/08/24 12:00 Fraction of Inspired Oxygen 60 01/08/24 12:00 Procedures ABG Interpretation ABG Interpretation 1: ABG Results: PH 7.236, CO2 48, PO2 167, HCO3 19.9 Interpretation: metabolic acidosis Intubation Intubation #1: Intubation Date: 01/07/24 Intubation Time: 22:53 Time out performed: No sedative: Etomidate Mg Given: 30 paralytic: Rocuronium Mg Given: 100 Laryngoscope: fiber optic video scope Tube Size (cm): 7.0 Method of Intubation: orotracheal Number of Attempts: 2 Tube Secured Depth (cm): 28 Tube Secured Location: lips Tube Placement Confirmation: visualized tube passing through cords and confirmation by capnometry MDM - Chest Pain MDM Narrative Medical decision making narrative: The patient was evaluated by myself in the emergency department. History is obtained from EMS. Patient became completely unresponsive to EMS as he was be ing wheeled into the emergency department. Patient transferred from from EMS stretcher to bed and was unresponsive to painful stimuli. CPAP removed and bag- mask ventilation initiated. Shortly after patient lost pulses. CPR initiated at 2250. Patient intubated at 2253 using a 7.0 ET on 2nd attempt as detailed under procedural note. Large amounts of mucus and food suctioned out of the patient's oropharynx. Patient had 3 rounds of CPR, rhythm PEA. Patient did regain pulses briefly before losing pulses again, rhythm check revealed wide complex tachycardia/V-tach and patient was shocked at this time and administered 300 mg of IV amiodarone. CPR continued for an additional 2 rounds, on 2nd pulse check patient had ROSC. Patient was started on an amiodarone drip. Serial EKGs were obtained at this time revealing diffuse ischemic ST changes although nondiagnostic for STD segment elevation CA. Case was discussed with the on-call director of business systems Dr. Krause at [phone] and after reviewing patient's past medical records, previous EKGs and cath report from January of 2020, Dr. Krause did not recommend activating the cath. 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 Patient was started on IV heparin bolus and drip. Administered 80 mg of Lipitor per Dr. Krause. Patient started to wake up, moving all 4 extremities spontaneously, pupils equal round reactive to light. At this time, patient had large amounts of emesis prior to NG tube placement. NG tube and Jay catheter placed at this time. Patient was started on a propofol drip for sedation. Patient was started on antibiotics with azithromycin and Rocephin due to concern for aspiration pneumonia. Blood cultures obtained prior to antibiotic administration. Patient was also administered 1 L IV fluid bolus with normal saline at this time. Repeat vital signs obtained at this time reviewed and noted to be stable. Family members updated regarding patient's current status in the waiting room and were brought back to see the patient shortly afterwards. EKG obtained after patient stabilization revealed normal sinus rhythm with an incomplete left bundle branch block at a rate of 92 beats per minute, ST depression noted in lead 1, V5 and V6 and ST elevation in lead 3. EKG currently pending official cardiology read. Laboratory results obtained revealing a leukocytosis of 26.5, hemoglobin 18.7, BUN 27, creatinine 1.6, chloride 109, troponin 27.8, proBNP 1280. ABG revealed a pH of 7.23, CO2 48, PO2 167, bicarb 19.9. Patient was weaned down from 100% FiO2 by RT. Imaging studies obtained included portable chest x-ray and CT angiogram PE protocol which was independently interpreted by me revealing no evidence of pulmonary emboli, multifocal pneumonia, which is pending final radiology interpretation. Differential diagnosis considerations include cardiopulmonary arrest secondary to STEMI, pulmonary emboli, aspiration pneumonia. Comorbidities impacting this visit include history of a coronary artery disease. Case was discussed with the on-call horses or mules teamster Dr. Sesay at [phone] and the on- call hospitalist Dr. Mclain at [phone] and she accepted admission. Lab Data 01/08/24 08:12 01/08/24 12:31 Labs: Lab Results 01/08/24 01/08/24 01/08/24 Range/Units 00:24 00:24 00:24 WBC Cancelled 26.5 H RBC Cancelled 6.64 H Hgb Cancelled Hct MCV MCH MCHC RDW Plt Count MPV Immature Gran % (Auto) Neut % (Auto) Lymph % (Auto) Mclean % (Auto) Eos % (Auto) Baso % (Auto) Lymph # (Auto) Mclean # (Auto) Eos # (Auto) Baso # (Auto) Abs Immat Gran (auto) Absolute Neuts (auto) Absolute Nucleated RBC Total Counted Neutrophils % (Manual) (46-73) % Band Neutrophils % (0-6) % Lymphocytes % (Manual) (18-44) % Monocytes % (Manual) (3-9) % Eosinophils % (Manual) (0-4) % Basophils % (Manual) (0-1) % Nucleated RBC % Abs Neuts (Manual) (1.3-6.7) K/mm3 Abs Lymphs (Manual) (1.1-4.5) K/mm3 Abs Monocytes (Manual) (0.1-0.90) K/mm3 Absolute Eos (Manual) (0.02-0.50) K/mm3 Abs Basophils (Manual) (0.0-0.1) K/mm3 Platelet Estimate (Adequate) % Immature Plt Fraction Poikilocytosis Schistocytes PT (11.1-14.7) Seconds INR APTT (22.3-36.8) Seconds Methemoglobin (0-1.5) %THb Minute Volume Vent Mode Tidal Volume ml PEEP cmH2O Peak Inspir Pressure Pressure Support Sodium (137-145) mmol/L Potassium (3.4-5.0) mmol/L Chloride (98-107) mmol/L Carbon Dioxide (22-30) mmol/L Anion Gap (4-12) mmol/L BUN (9-20) mg/dL Creatinine (0.8-1.5) mg/dL Estim Creat Clear Calc Estimated GFR (59 - ) Glucose (65-110) mg/dL Lactic Acid (0.7-2.0) mmol/L Calcium (8.4-10.2) mg/dL Magnesium (1.6-2.3) mg/dL Total Bilirubin (0.2-1.3) mg/dL AST (17-59) U/L ALT (6-50) U/L Alkaline Phosphatase (38-126) U/L Troponin I (0.000-0.034) ng/mL NT-Pro-B Natriuret Pep (19.9-100) pg/mL Total Protein (6.3-8.2) g/dL Albumin (3.5-5.1) g/dL Triglycerides (<150) mg/dL Urine Color (Yellow) Urine Appearance (Clear) Urine pH (5.0-9.0) Ur Specific [place] (1.001-1.035) Urine Protein (Negative) mg/dL Urine Glucose (UA) (Negative) mg/dL Urine Ketones (Negative) mg/dL Ur Blood (Man) (Negative) Urine Nitrate (Negative) Urine Bilirubin (Negative) Urine Urobilinogen (<2.0) mg/dL Add Ur Microanalysis Leukocyte Esterase Rfl (Negative) MARLYN/UL Urine RBC (0-2) /hpf Urine WBC (0-3) /hpf Ur Squamous Epith Cells (Few) /hpf Urine Bacteria /hpf Urine Casts 01/08/24 01/08/24 01/08/24 Range/Units 00:24 00:24 00:24 WBC RBC Hgb 18.7 H Hct Cancelled 59.2 H MCV Cancelled 89.2 MCH Cancelled MCHC RDW Plt Count MPV Immature Gran % (Auto) Neut % (Auto) Lymph % (Auto) Mclean % (Auto) Eos % (Auto) Baso % (Auto) Lymph # (Auto) Mclean # (Auto) Eos # (Auto) Baso # (Auto) Abs Immat Gran (auto) Absolute Neuts (auto) Absolute Nucleated RBC Total Counted Neutrophils % (Manual) (46-73) % Band Neutrophils % (0-6) % Lymphocytes % (Manual) (18-44) % Monocytes % (Manual) (3-9) % Eosinophils % (Manual) (0-4) % Basophils % (Manual) (0-1) % Nucleated RBC % Abs Neuts (Manual) (1.3-6.7) K/mm3 Abs Lymphs (Manual) (1.1-4.5) K/mm3 Abs Monocytes (Manual) (0.1-0.90) K/mm3 Absolute Eos (Manual) (0.02-0.50) K/mm3 Abs Basophils (Manual) (0.0-0.1) K/mm3 Platelet Estimate (Adequate) % Immature Plt Fraction Poikilocytosis Schistocytes PT (11.1-14.7) Seconds INR APTT (22.3-36.8) Seconds Methemoglobin (0-1.5) %THb Minute Volume Vent Mode Tidal Volume ml PEEP cmH2O Peak Inspir Pressure Pressure Support Sodium (137-145) mmol/L Potassium (3.4-5.0) mmol/L Chloride (98-107) mmol/L Carbon Dioxide (22-30) mmol/L Anion Gap (4-12) mmol/L BUN (9-20) mg/dL Creatinine (0.8-1.5) mg/dL Estim Creat Clear Calc Estimated GFR (59 - ) Glucose (65-110) mg/dL Lactic Acid (0.7-2.0) mmol/L Calcium (8.4-10.2) mg/dL Magnesium (1.6-2.3) mg/dL Total Bilirubin (0.2-1.3) mg/dL AST (17-59) U/L ALT (6-50) U/L Alkaline Phosphatase (38-126) U/L Troponin I (0.000-0.034) ng/mL NT-Pro-B Natriuret Pep (19.9-100) pg/mL Total Protein (6.3-8.2) g/dL Albumin (3.5-5.1) g/dL Triglycerides (<150) mg/dL Urine Color (Yellow) Urine Appearance (Clear) Urine pH (5.0-9.0) Ur Specific [place] (1.001-1.035) Urine Protein (Negative) mg/dL Urine Glucose (UA) (Negative) mg/dL Urine Ketones (Negative) mg/dL Ur Blood (Man) (Negative) Urine Nitrate (Negative) Urine Bilirubin (Negative) Urine Urobilinogen (<2.0) mg/dL Add Ur Microanalysis Leukocyte Esterase Rfl (Negative) MARLYN/UL Urine RBC (0-2) /hpf Urine WBC (0-3) /hpf Ur Squamous Epith Cells (Few) /hpf Urine Bacteria /hpf Urine Casts 01/08/24 01/08/24 01/08/24 Range/Units 00:24 00:24 00:24 WBC RBC Hgb Hct MCV MCH 28.2 MCHC Cancelled 31.6 L RDW Cancelled 14.8 H Plt Count Cancelled MPV Immature Gran % (Auto) Neut % (Auto) Lymph % (Auto) Mclean % (Auto) Eos % (Auto) Baso % (Auto) Lymph # (Auto) Mclean # (Auto) Eos # (Auto) Baso # (Auto) Abs Immat Gran (auto) Absolute Neuts (auto) Absolute Nucleated RBC Total Counted Neutrophils % (Manual) (46-73) % Band Neutrophils % (0-6) % Lymphocytes % (Manual) (18-44) % Monocytes % (Manual) (3-9) % Eosinophils % (Manual) (0-4) % Basophils % (Manual) (0-1) % Nucleated RBC % Abs Neuts (Manual) (1.3-6.7) K/mm3 Abs Lymphs (Manual) (1.1-4.5) K/mm3 Abs Monocytes (Manual) (0.1-0.90) K/mm3 Absolute Eos (Manual) (0.02-0.50) K/mm3 Abs Basophils (Manual) (0.0-0.1) K/mm3 Platelet Estimate (Adequate) % Immature Plt Fraction Poikilocytosis Schistocytes PT (11.1-14.7) Seconds INR APTT (22.3-36.8) Seconds Methemoglobin (0-1.5) %THb Minute Volume Vent Mode Tidal Volume ml PEEP cmH2O Peak Inspir Pressure Pressure Support Sodium (137-145) mmol/L Potassium (3.4-5.0) mmol/L Chloride (98-107) mmol/L Carbon Dioxide (22-30) mmol/L Anion Gap (4-12) mmol/L BUN (9-20) mg/dL Creatinine (0.8-1.5) mg/dL Estim Creat Clear Calc Estimated GFR (59 - ) Glucose (65-110) mg/dL Lactic Acid (0.7-2.0) mmol/L Calcium (8.4-10.2) mg/dL Magnesium (1.6-2.3) mg/dL Total Bilirubin (0.2-1.3) mg/dL AST (17-59) U/L ALT (6-50) U/L Alkaline Phosphatase (38-126) U/L Troponin I (0.000-0.034) ng/mL NT-Pro-B Natriuret Pep (19.9-100) pg/mL Total Protein (6.3-8.2) g/dL Albumin (3.5-5.1) g/dL Triglycerides (<150) mg/dL Urine Color (Yellow) Urine Appearance (Clear) Urine pH (5.0-9.0) Ur Specific [place] (1.001-1.035) Urine Protein (Negative) mg/dL Urine Glucose (UA) (Negative) mg/dL Urine Ketones (Negative) mg/dL Ur Blood (Man) (Negative) Urine Nitrate (Negative) Urine Bilirubin (Negative) Urine Urobilinogen (<2.0) mg/dL Add Ur Microanalysis Leukocyte Esterase Rfl (Negative) MARLYN/UL Urine RBC (0-2) /hpf Urine WBC (0-3) /hpf Ur Squamous Epith Cells (Few) /hpf Urine Bacteria /hpf Urine Casts 01/08/24 01/08/24 01/08/24 Range/Units 00:24 00:24 00:24 WBC RBC Hgb Hct MCV MCH MCHC RDW Plt Count 292 MPV Cancelled 10.1 Immature Gran % (Auto) Cancelled Not Reportable Neut % (Auto) Cancelled Lymph % (Auto) Mclean % (Auto) Eos % (Auto) Baso % (Auto) Lymph # (Auto) Mclean # (Auto) Eos # (Auto) Baso # (Auto) Abs Immat Gran (auto) Absolute Neuts (auto) Absolute Nucleated RBC Total Counted Neutrophils % (Manual) (46-73) % Band Neutrophils % (0-6) % Lymphocytes % (Manual) (18-44) % Monocytes % (Manual) (3-9) % Eosinophils % (Manual) (0-4) % Basophils % (Manual) (0-1) % Nucleated RBC % Abs Neuts (Manual) (1.3-6.7) K/mm3 Abs Lymphs (Manual) (1.1-4.5) K/mm3 Abs Monocytes (Manual) (0.1-0.90) K/mm3 Absolute Eos (Manual) (0.02-0.50) K/mm3 Abs Basophils (Manual) (0.0-0.1) K/mm3 Platelet Estimate (Adequate) % Immature Plt Fraction Poikilocytosis Schistocytes PT (11.1-14.7) Seconds INR APTT (22.3-36.8) Seconds Methemoglobin (0-1.5) %THb Minute Volume Vent Mode Tidal Volume ml PEEP cmH2O Peak Inspir Pressure Pressure Support Sodium (137-145) mmol/L Potassium (3.4-5.0) mmol/L Chloride (98-107) mmol/L Carbon Dioxide (22-30) mmol/L Anion Gap (4-12) mmol/L BUN (9-20) mg/dL Creatinine (0.8-1.5) mg/dL Estim Creat Clear Calc Estimated GFR (59 - ) Glucose (65-110) mg/dL Lactic Acid (0.7-2.0) mmol/L Calcium (8.4-10.2) mg/dL Magnesium (1.6-2.3) mg/dL Total Bilirubin (0.2-1.3) mg/dL AST (17-59) U/L ALT (6-50) U/L Alkaline Phosphatase (38-126) U/L Troponin I (0.000-0.034) ng/mL NT-Pro-B Natriuret Pep (19.9-100) pg/mL Total Protein (6.3-8.2) g/dL Albumin (3.5-5.1) g/dL Triglycerides (<150) mg/dL Urine Color (Yellow) Urine Appearance (Clear) Urine pH (5.0-9.0) Ur Specific [place] (1.001-1.035) Urine Protein (Negative) mg/dL Urine Glucose (UA) (Negative) mg/dL Urine Ketones (Negative) mg/dL Ur Blood (Man) (Negative) Urine Nitrate (Negative) Urine Bilirubin (Negative) Urine Urobilinogen (<2.0) mg/dL Add Ur Microanalysis Leukocyte Esterase Rfl (Negative) MARLYN/UL Urine RBC (0-2) /hpf Urine WBC (0-3) /hpf Ur Squamous Epith Cells (Few) /hpf Urine Bacteria /hpf Urine Casts 01/08/24 01/08/24 01/08/24 Range/Units 00:24 00:24 00:24 WBC RBC Hgb Hct MCV MCH MCHC RDW Plt Count MPV Immature Gran % (Auto) Neut % (Auto) Not Reportable Lymph % (Auto) Cancelled Not Reportable Mclean % (Auto) Cancelled Not Reportable Eos % (Auto) Cancelled Baso % (Auto) Lymph # (Auto) Mclean # (Auto) Eos # (Auto) Baso # (Auto) Abs Immat Gran (auto) Absolute Neuts (auto) Absolute Nucleated RBC Total Counted Neutrophils % (Manual) (46-73) % Band Neutrophils % (0-6) % Lymphocytes % (Manual) (18-44) % Monocytes % (Manual) (3-9) % Eosinophils % (Manual) (0-4) % Basophils % (Manual) (0-1) % Nucleated RBC % Abs Neuts (Manual) (1.3-6.7) K/mm3 Abs Lymphs (Manual) (1.1-4.5) K/mm3 Abs Monocytes (Manual) (0.1-0.90) K/mm3 Absolute Eos (Manual) (0.02-0.50) K/mm3 Abs Basophils (Manual) (0.0-0.1) K/mm3 Platelet Estimate (Adequate) % Immature Plt Fraction Poikilocytosis Schistocytes PT (11.1-14.7) Seconds INR APTT (22.3-36.8) Seconds Methemoglobin (0-1.5) %THb Minute Volume Vent Mode Tidal Volume ml PEEP cmH2O Peak Inspir Pressure Pressure Support Sodium (137-145) mmol/L Potassium (3.4-5.0) mmol/L Chloride (98-107) mmol/L Carbon Dioxide (22-30) mmol/L Anion Gap (4-12) mmol/L BUN (9-20) mg/dL Creatinine (0.8-1.5) mg/dL Estim Creat Clear Calc Estimated GFR (59 - ) Glucose (65-110) mg/dL Lactic Acid (0.7-2.0) mmol/L Calcium (8.4-10.2) mg/dL Magnesium (1.6-2.3) mg/dL Total Bilirubin (0.2-1.3) mg/dL AST (17-59) U/L ALT (6-50) U/L Alkaline Phosphatase (38-126) U/L Troponin I (0.000-0.034) ng/mL NT-Pro-B Natriuret Pep (19.9-100) pg/mL Total Protein (6.3-8.2) g/dL Albumin (3.5-5.1) g/dL Triglycerides (<150) mg/dL Urine Color (Yellow) Urine Appearance (Clear) Urine pH (5.0-9.0) Ur Specific [place] (1.001-1.035) Urine Protein (Negative) mg/dL Urine Glucose (UA) (Negative) mg/dL Urine Ketones (Negative) mg/dL Ur Blood (Man) (Negative) Urine Nitrate (Negative) Urine Bilirubin (Negative) Urine Urobilinogen (<2.0) mg/dL Add Ur Microanalysis Leukocyte Esterase Rfl (Negative) MARLYN/UL Urine RBC (0-2) /hpf Urine WBC (0-3) /hpf Ur Squamous Epith Cells (Few) /hpf Urine Bacteria /hpf Urine Casts 01/08/24 01/08/24 01/08/24 Range/Units 00:24 00:24 00:24 WBC RBC Hgb Hct MCV MCH MCHC RDW Plt Count MPV Immature Gran % (Auto) Neut % (Auto) Lymph % (Auto) Mclean % (Auto) Eos % (Auto) Not Reportable Baso % (Auto) Cancelled Not Reportable Lymph # (Auto) Cancelled Not Reportable Mclean # (Auto) Cancelled Eos # (Auto) Baso # (Auto) Abs Immat Gran (auto) Absolute Neuts (auto) Absolute Nucleated RBC Total Counted Neutrophils % (Manual) (46-73) % Band Neutrophils % (0-6) % Lymphocytes % (Manual) (18-44) % Monocytes % (Manual) (3-9) % Eosinophils % (Manual) (0-4) % Basophils % (Manual) (0-1) % Nucleated RBC % Abs Neuts (Manual) (1.3-6.7) K/mm3 Abs Lymphs (Manual) (1.1-4.5) K/mm3 Abs Monocytes (Manual) (0.1-0.90) K/mm3 Absolute Eos (Manual) (0.02-0.50) K/mm3 Abs Basophils (Manual) (0.0-0.1) K/mm3 Platelet Estimate (Adequate) % Immature Plt Fraction Poikilocytosis Schistocytes PT (11.1-14.7) Seconds INR APTT (22.3-36.8) Seconds Methemoglobin (0-1.5) %THb Minute Volume Vent Mode Tidal Volume ml PEEP cmH2O Peak Inspir Pressure Pressure Support Sodium (137-145) mmol/L Potassium (3.4-5.0) mmol/L Chloride (98-107) mmol/L Carbon Dioxide (22-30) mmol/L Anion Gap (4-12) mmol/L BUN (9-20) mg/dL Creatinine (0.8-1.5) mg/dL Estim Creat Clear Calc Estimated GFR (59 - ) Glucose (65-110) mg/dL Lactic Acid (0.7-2.0) mmol/L Calcium (8.4-10.2) mg/dL Magnesium (1.6-2.3) mg/dL Total Bilirubin (0.2-1.3) mg/dL AST (17-59) U/L ALT (6-50) U/L Alkaline Phosphatase (38-126) U/L Troponin I (0.000-0.034) ng/mL NT-Pro-B Natriuret Pep (19.9-100) pg/mL Total Protein (6.3-8.2) g/dL Albumin (3.5-5.1) g/dL Triglycerides (<150) mg/dL Urine Color (Yellow) Urine Appearance (Clear) Urine pH (5.0-9.0) Ur Specific [place] (1.001-1.035) Urine Protein (Negative) mg/dL Urine Glucose (UA) (Negative) mg/dL Urine Ketones (Negative) mg/dL Ur Blood (Man) (Negative) Urine Nitrate (Negative) Urine Bilirubin (Negative) Urine Urobilinogen (<2.0) mg/dL Add Ur Microanalysis Leukocyte Esterase Rfl (Negative) MARLYN/UL Urine RBC (0-2) /hpf Urine WBC (0-3) /hpf Ur Squamous Epith Cells (Few) /hpf Urine Bacteria /hpf Urine Casts 01/08/24 01/08/24 01/08/24 Range/Units 00:24 00:24 00:24 WBC RBC Hgb Hct MCV MCH MCHC RDW Plt Count MPV Immature Gran % (Auto) Neut % (Auto) Lymph % (Auto) Mclean % (Auto) Eos % (Auto) Baso % (Auto) Lymph # (Auto) Mclean # (Auto) Not Reportable Eos # (Auto) Cancelled Not Reportable Baso # (Auto) Cancelled Not Reportable Abs Immat Gran (auto) Cancelled Absolute Neuts (auto) Absolute Nucleated RBC Total Counted Neutrophils % (Manual) (46-73) % Band Neutrophils % (0-6) % Lymphocytes % (Manual) (18-44) % Monocytes % (Manual) (3-9) % Eosinophils % (Manual) (0-4) % Basophils % (Manual) (0-1) % Nucleated RBC % Abs Neuts (Manual) (1.3-6.7) K/mm3 Abs Lymphs (Manual) (1.1-4.5) K/mm3 Abs Monocytes (Manual) (0.1-0.90) K/mm3 Absolute Eos (Manual) (0.02-0.50) K/mm3 Abs Basophils (Manual) (0.0-0.1) K/mm3 Platelet Estimate (Adequate) % Immature Plt Fraction Poikilocytosis Schistocytes PT (11.1-14.7) Seconds INR APTT (22.3-36.8) Seconds Methemoglobin (0-1.5) %THb Minute Volume Vent Mode Tidal Volume ml PEEP cmH2O Peak Inspir Pressure Pressure Support Sodium (137-145) mmol/L Potassium (3.4-5.0) mmol/L Chloride (98-107) mmol/L Carbon Dioxide (22-30) mmol/L Anion Gap (4-12) mmol/L BUN (9-20) mg/dL Creatinine (0.8-1.5) mg/dL Estim Creat Clear Calc Estimated GFR (59 - ) Glucose (65-110) mg/dL Lactic Acid (0.7-2.0) mmol/L Calcium (8.4-10.2) mg/dL Magnesium (1.6-2.3) mg/dL Total Bilirubin (0.2-1.3) mg/dL AST (17-59) U/L ALT (6-50) U/L Alkaline Phosphatase (38-126) U/L Troponin I (0.000-0.034) ng/mL NT-Pro-B Natriuret Pep (19.9-100) pg/mL Total Protein (6.3-8.2) g/dL Albumin (3.5-5.1) g/dL Triglycerides (<150) mg/dL Urine Color (Yellow) Urine Appearance (Clear) Urine pH (5.0-9.0) Ur Specific [place] (1.001-1.035) Urine Protein (Negative) mg/dL Urine Glucose (UA) (Negative) mg/dL Urine Ketones (Negative) mg/dL Ur Blood (Man) (Negative) Urine Nitrate (Negative) Urine Bilirubin (Negative) Urine Urobilinogen (<2.0) mg/dL Add Ur Microanalysis Leukocyte Esterase Rfl (Negative) MARLYN/UL Urine RBC (0-2) /hpf Urine WBC (0-3) /hpf Ur Squamous Epith Cells (Few) /hpf Urine Bacteria /hpf Urine Casts 01/08/24 01/08/24 01/08/24 Range/Units 00:24 00:24 00:24 WBC RBC Hgb Hct MCV MCH MCHC RDW Plt Count MPV Immature Gran % (Auto) Neut % (Auto) Lymph % (Auto) Mclean % (Auto) Eos % (Auto) Baso % (Auto) Lymph # (Auto) Mclean # (Auto) Eos # (Auto) Baso # (Auto) Abs Immat Gran (auto) Not Reportable Absolute Neuts (auto) Cancelled Not Reportable Absolute Nucleated RBC Cancelled Not Reportable Total Counted 100 Neutrophils % (Manual) 55 (46-73) % Band Neutrophils % 14 H (0-6) % Lymphocytes % (Manual) 25.0 (18-44) % Monocytes % (Manual) 3 (3-9) % Eosinophils % (Manual) 2 (0-4) % Basophils % (Manual) 1 (0-1) % Nucleated RBC % Cancelled Abs Neuts (Manual) (1.3-6.7) K/mm3 Abs Lymphs (Manual) (1.1-4.5) K/mm3 Abs Monocytes (Manual) (0.1-0.90) K/mm3 Absolute Eos (Manual) (0.02-0.50) K/mm3 Abs Basophils (Manual) (0.0-0.1) K/mm3 Platelet Estimate (Adequate) % Immature Plt Fraction Poikilocytosis Schistocytes PT (11.1-14.7) Seconds INR APTT (22.3-36.8) Seconds Methemoglobin (0-1.5) %THb Minute Volume Vent Mode Tidal Volume ml PEEP cmH2O Peak Inspir Pressure Pressure Support Sodium (137-145) mmol/L Potassium (3.4-5.0) mmol/L Chloride (98-107) mmol/L Carbon Dioxide (22-30) mmol/L Anion Gap (4-12) mmol/L BUN (9-20) mg/dL Creatinine (0.8-1.5) mg/dL Estim Creat Clear Calc Estimated GFR (59 - ) Glucose (65-110) mg/dL Lactic Acid (0.7-2.0) mmol/L Calcium (8.4-10.2) mg/dL Magnesium (1.6-2.3) mg/dL Total Bilirubin (0.2-1.3) mg/dL AST (17-59) U/L ALT (6-50) U/L Alkaline Phosphatase (38-126) U/L Troponin I (0.000-0.034) ng/mL NT-Pro-B Natriuret Pep (19.9-100) pg/mL Total Protein (6.3-8.2) g/dL Albumin (3.5-5.1) g/dL Triglycerides (<150) mg/dL Urine Color (Yellow) Urine Appearance (Clear) Urine pH (5.0-9.0) Ur Specific [place] (1.001-1.035) Urine Protein (Negative) mg/dL Urine Glucose (UA) (Negative) mg/dL Urine Ketones (Negative) mg/dL Ur Blood (Man) (Negative) Urine Nitrate (Negative) Urine Bilirubin (Negative) Urine Urobilinogen (<2.0) mg/dL Add Ur Microanalysis Leukocyte Esterase Rfl (Negative) MARLYN/UL Urine RBC (0-2) /hpf Urine WBC (0-3) /hpf Ur Squamous Epith Cells (Few) /hpf Urine Bacteria /hpf Urine Casts 01/08/24 01/08/24 01/08/24 Range/Units 00:24 00:25 01:40 WBC RBC Hgb Hct MCV MCH MCHC RDW Plt Count MPV Immature Gran % (Auto) Neut % (Auto) Lymph % (Auto) Mclean % (Auto) Eos % (Auto) Baso % (Auto) Lymph # (Auto) Mclean # (Auto) Eos # (Auto) Baso # (Auto) Abs Immat Gran (auto) Absolute Neuts (auto) Absolute Nucleated RBC Total Counted Neutrophils % (Manual) (46-73) % Band Neutrophils % (0-6) % Lymphocytes % (Manual) (18-44) % Monocytes % (Manual) (3-9) % Eosinophils % (Manual) (0-4) % Basophils % (Manual) (0-1) % Nucleated RBC % Not Reportable Abs Neuts (Manual) 18.28 H (1.3-6.7) K/mm3 Abs Lymphs (Manual) 6.62 H (1.1-4.5) K/mm3 Abs Monocytes (Manual) 0.79 (0.1-0.90) K/mm3 Absolute Eos (Manual) 0.53 H (0.02-0.50) K/mm3 Abs Basophils (Manual) 0.26 H (0.0-0.1) K/mm3 Platelet Estimate Adequate (Adequate) % Immature Plt Fraction Cancelled Poikilocytosis 1+ Schistocytes None seen PT 14.7 (11.1-14.7) Seconds INR 1.1 APTT 39.1 H (22.3-36.8) Seconds Methemoglobin (0-1.5) %THb Minute Volume Vent Mode Tidal Volume ml PEEP cmH2O Peak Inspir Pressure Pressure Support Sodium (137-145) mmol/L Potassium (3.4-5.0) mmol/L Chloride (98-107) mmol/L Carbon Dioxide (22-30) mmol/L Anion Gap (4-12) mmol/L BUN (9-20) mg/dL Creatinine (0.8-1.5) mg/dL Estim Creat Clear Calc Estimated GFR (59 - ) Glucose (65-110) mg/dL Lactic Acid 8.6 H* (0.7-2.0) mmol/L Calcium (8.4-10.2) mg/dL Magnesium (1.6-2.3) mg/dL Total Bilirubin (0.2-1.3) mg/dL AST (17-59) U/L ALT (6-50) U/L Alkaline Phosphatase (38-126) U/L Troponin I 27.800 H* (0.000-0.034) ng/mL NT-Pro-B Natriuret Pep 1280 H (19.9-100) pg/mL Total Protein (6.3-8.2) g/dL Albumin (3.5-5.1) g/dL Triglycerides 298 H (<150) mg/dL Urine Color (Yellow) Urine Appearance (Clear) Urine pH (5.0-9.0) Ur Specific [place] (1.001-1.035) Urine Protein (Negative) mg/dL Urine Glucose (UA) (Negative) mg/dL Urine Ketones (Negative) mg/dL Ur Blood (Man) (Negative) Urine Nitrate (Negative) Urine Bilirubin (Negative) Urine Urobilinogen (<2.0) mg/dL Add Ur Microanalysis Leukocyte Esterase Rfl (Negative) MARLYN/UL Urine RBC (0-2) /hpf Urine WBC (0-3) /hpf Ur Squamous Epith Cells (Few) /hpf Urine Bacteria /hpf Urine Casts 01/08/24 01/08/24 01/08/24 Range/Units 02:44 02:50 03:56 WBC RBC Hgb Hct MCV MCH MCHC RDW Plt Count MPV Immature Gran % (Auto) Neut % (Auto) Lymph % (Auto) Mclean % (Auto) Eos % (Auto) Baso % (Auto) Lymph # (Auto) Mclean # (Auto) Eos # (Auto) Baso # (Auto) Abs Immat Gran (auto) Absolute Neuts (auto) Absolute Nucleated RBC Total Counted Neutrophils % (Manual) (46-73) % Band Neutrophils % (0-6) % Lymphocytes % (Manual) (18-44) % Monocytes % (Manual) (3-9) % Eosinophils % (Manual) (0-4) % Basophils % (Manual) (0-1) % Nucleated RBC % Abs Neuts (Manual) (1.3-6.7) K/mm3 Abs Lymphs (Manual) (1.1-4.5) K/mm3 Abs Monocytes (Manual) (0.1-0.90) K/mm3 Absolute Eos (Manual) (0.02-0.50) K/mm3 Abs Basophils (Manual) (0.0-0.1) K/mm3 Platelet Estimate (Adequate) % Immature Plt Fraction Poikilocytosis Schistocytes PT (11.1-14.7) Seconds INR APTT (22.3-36.8) Seconds Methemoglobin (0-1.5) %THb Minute Volume Vent Mode Tidal Volume ml PEEP cmH2O Peak Inspir Pressure Pressure Support Sodium 138 (137-145) mmol/L Potassium 3.4 (3.4-5.0) mmol/L Chloride 101 (98-107) mmol/L Carbon Dioxide 21 L (22-30) mmol/L Anion Gap 16 H (4-12) mmol/L BUN 21 H (9-20) mg/dL Creatinine 1.30 1.20 (0.8-1.5) mg/dL Estim Creat Clear Calc Not Reportable Not Reportable Estimated GFR 54 L 59 (59 - ) Glucose 458 H (65-110) mg/dL Lactic Acid 5.5 H* (0.7-2.0) mmol/L Calcium 8.0 L (8.4-10.2) mg/dL Magnesium 1.9 (1.6-2.3) mg/dL Total Bilirubin 0.6 (0.2-1.3) mg/dL AST 320 H (17-59) U/L ALT 57 H (6-50) U/L Alkaline Phosphatase 199 H (38-126) U/L Troponin I (0.000-0.034) ng/mL NT-Pro-B Natriuret Pep (19.9-100) pg/mL Total Protein 6.0 L (6.3-8.2) g/dL Albumin 3.4 L (3.5-5.1) g/dL Triglycerides (<150) mg/dL Urine Color Yellow (Yellow) Urine Appearance Cloudy H (Clear) Urine pH 5.5 (5.0-9.0) Ur Specific [place] 1.032 (1.001-1.035) Urine Protein 3+ H (Negative) mg/dL Urine Glucose (UA) 3+ H (Negative) mg/dL Urine Ketones Negative (Negative) mg/dL Ur Blood (Man) 3+ H (Negative) Urine Nitrate Negative (Negative) Urine Bilirubin Negative (Negative) Urine Urobilinogen 1.0 (<2.0) mg/dL Add Ur Microanalysis Reviewed Leukocyte Esterase Rfl Negative (Negative) MARLYN/UL Urine RBC 6-10 H (0-2) /hpf Urine WBC 6-10 H (0-3) /hpf Ur Squamous Epith Cells Few (Few) /hpf Urine Bacteria None seen /hpf Urine Casts -01/08/24 Range/Units 05:18 WBC RBC Hgb Hct MCV MCH MCHC RDW Plt Count MPV Immature Gran % (Auto) Neut % (Auto) Lymph % (Auto) Mclean % (Auto) Eos % (Auto) Baso % (Auto) Lymph # (Auto) Mclean # (Auto) Eos # (Auto) Baso # (Auto) Abs Immat Gran (auto) Absolute Neuts (auto) Absolute Nucleated RBC Total Counted Neutrophils % (Manual) (46-73) % Band Neutrophils % (0-6) % Lymphocytes % (Manual) (18-44) % Monocytes % (Manual) (3-9) % Eosinophils % (Manual) (0-4) % Basophils % (Manual) (0-1) % Nucleated RBC % Abs Neuts (Manual) (1.3-6.7) K/mm3 Abs Lymphs (Manual) (1.1-4.5) K/mm3 Abs Monocytes (Manual) (0.1-0.90) K/mm3 Absolute Eos (Manual) (0.02-0.50) K/mm3 Abs Basophils (Manual) (0.0-0.1) K/mm3 Platelet Estimate (Adequate) % Immature Plt Fraction Poikilocytosis Schistocytes PT (11.1-14.7) Seconds INR APTT (22.3-36.8) Seconds Methemoglobin 0.4 (0-1.5) %THb Minute Volume Not Reportable Vent Mode Cmv Tidal Volume 470 ml PEEP 5 cmH2O Peak Inspir Pressure Not Reportable Pressure Support Not Reportable Sodium (137-145) mmol/L Potassium (3.4-5.0) mmol/L Chloride (98-107) mmol/L Carbon Dioxide (22-30) mmol/L Anion Gap (4-12) mmol/L BUN (9-20) mg/dL Creatinine (0.8-1.5) mg/dL Estim Creat Clear Calc Estimated GFR (59 - ) Glucose (65-110) mg/dL Lactic Acid (0.7-2.0) mmol/L Calcium (8.4-10.2) mg/dL Magnesium (1.6-2.3) mg/dL Total Bilirubin (0.2-1.3) mg/dL AST (17-59) U/L ALT (6-50) U/L Alkaline Phosphatase (38-126) U/L Troponin I (0.000-0.034) ng/mL NT-Pro-B Natriuret Pep (19.9-100) pg/mL Total Protein (6.3-8.2) g/dL Albumin (3.5-5.1) g/dL Triglycerides (<150) mg/dL Urine Color (Yellow) Urine Appearance (Clear) Urine pH (5.0-9.0) Ur Specific [place] (1.001-1.035) Urine Protein (Negative) mg/dL Urine Glucose (UA) (Negative) mg/dL Urine Ketones (Negative) mg/dL Ur Blood (Man) (Negative) Urine Nitrate (Negative) Urine Bilirubin (Negative) Urine Urobilinogen (<2.0) mg/dL Add Ur Microanalysis Leukocyte Esterase Rfl (Negative) MARLYN/UL Urine RBC (0-2) /hpf Urine WBC (0-3) /hpf Ur Squamous Epith Cells (Few) /hpf Urine Bacteria /hpf Urine Casts ABG Data ABG results: 01/08/24 05:18 Puncture Site Right radial ABG pH 7.236 L* ABG pCO2 48.0 H ABG pO2 167.7 H ABG PO2/FiO2 Ratio 1.68 ABG HCO3 19.9 L ABG O2 Saturation 98.8 ABG O2 Content 25.3 H ABG Base Excess -7.8 A-a Gradient 497.3 Oxyhemoglobin 98.3 Carboxyhemoglobin 0.4 Reduced Hemoglobin 0.9 Total Hemoglobin 18.1 H O2 Delivery Device Ventilator O2 Liters/Min Not Reportable Vent Rate 14 FiO2 100 Critical Care Time Critical Care Time Total Critical Care Time: 67 (Please refer to [facility] for attestation.) Discharge Plan Discharge Clinical Impression: Acute hypoxemic respiratory failure, Coronary artery disease, Non-ST elevation CA (NSTEMI), HUMAIRA (acute kidney injury), Acute respiratory failure, Cardiac arre st Patient Disposition: Still a Patient Condition: Critical
[2024-01-08] MEDS: HEPARIN SODIUM 5,000 UNITS/ML VIAL 4000 UNITS IV PUSH ×2 (00:35→09:56)
[2024-01-08] MEDS: HEPARIN SOD/D5W 100 UNITS/ML 25,000 UNITS/250 ML BAG 10 UNITS IV CONT (00:36)
[2024-01-08 00:56] LABS: Hematocrit 59.2 % (42.0-52.0); Hemoglobin 18.7 g/dL (14.0-18.0); Mean Corpuscular HGB Conc 31.6 g/dl (32-36); Mean Corpuscular Hemoglobin 28.2 pg (26-34); Mean Corpuscular Volume 89.2 fl (80-100); Mean Platelet Volume 10.1 fl (7.4-10.4); Platelet Count Result 292 k/mm3 (150-375); Red Blood Count 6.64 M/mm3 (4.6-6.20); Red Cell Distribution Width 14.8 % (11.5-14.5); White Blood Count 26.5 K/mm3 (4.5-10.0)
[2024-01-08 01:01] LABS: INR 1.1; Prothrombin Time 14.7 Seconds (11.1-14.7)
[2024-01-08 01:02] LABS: Partial Thromboplastin Time 39.1 Seconds (22.3-36.8)
[2024-01-08 01:09] LABS: Lactic Acid Reflex 8.6 mmol/L (0.7-2.0)
[2024-01-08 01:36] LABS: Band Neutrophils Percent 14 % (0-6); Basophils Absolute Manual 0.26 K/mm3 (0.0-0.1); Basophils Percent Manual 1 % (0-1); Eosinophils Absolute Manual 0.53 K/mm3 (0.02-0.50); Eosinophils Percent Manual 2 % (0-4); Lymphocytes Absolute Manual 6.62 K/mm3 (1.1-4.5); Monocytes Absolute Manual 0.79 K/mm3 (0.1-0.90); Monocytes Percent Manual 3 % (3-9); Neutrophils Absolute Manual 18.28 K/mm3 (1.3-6.7); Neutrophils Percent Manual 55 % (46-73); Platelet Estimate Adequate (Adequate); Total Cells Counted 100
[2024-01-08 01:37] LABS: Poikilocytosis 1+; Schistocytes None Seen
[2024-01-08] MEDS: cefTRIAXone 2 GM/NS 100 ML 2 GM/100 ML BAG IVPB (02:00)
[2024-01-08 02:14] LABS: Triglycerides 298 mg/dL (<150)
[2024-01-08 02:53] LABS: Estimated Glomerular Filt Rate 54
[2024-01-08 03:16] LABS: NT Pro B Type Natriuretic Pept 1280 pg/mL (19.9-100)
[2024-01-08 03:17] LABS: Add Urine Microscopic? YES; Appearance Urine Cloudy (Clear); Bacteria Urine None Seen /hpf; Bilirubin Urine Negative (Negative); Blood Urine 3+ (Negative); Color Urine Yellow (Yellow); Glucose Urine UA 3+ mg/dL (Negative); Ketones Urine Negative (Negative); Leukocyte Esterase Ur Negative LEU/UL (Negative); Need Manual Microscopic Reviewed; Nitrate Urine Negative (Negative); Protein Urine 3+ mg/dL (Negative); Specific Grav Ur 1.032 (1.001-1.035); Squamous Epithelial Cell Urine Few /hpf (Few); pH Urine 5.5 (5.0-9.0)
[2024-01-08 03:31] LABS: Reflex Lactic Acid Yes or No Add Lactic
[2024-01-08] MEDS: SODIUM CHLORIDE 0.9% IV 1,000 ML 999 ML IV CONT ×2 (04:36→08:56)
[2024-01-08] MEDS: WATER FOR IRRIGATION, STERILE 500 ML BOTTLE (04:37)
[2024-01-08 04:46] LABS: Lactic Acid 5.5 mmol/L (0.7-2.0)
[2024-01-08 05:32] LABS: Alveolar/Arterial O2 Gradient 497.3 mmHg; Base Excess ABG -7.8 mEq/l (+/-2.0); Carboxyhemoglobin 0.4 % THb (0-2.0); Fractional Inspired Oxygen 100 %; HCO3 ABG 19.9 mEq/l (22.0-26.0); Methemoglobin ABG 0.4 %THb (0-1.5); Oxygen Content ABG 25.3 %vol (16.0-22.0); Oxygen Saturation ABG 98.8 % (95.0-100.0); Oxyhemoglobin 98.3 % THb (90.0-100.0); PO2 ABG 167.7 mmHg (80.0-100.0); PO2 FiO2 Ratio Arterial Blood 1.68 %; Reduced Hemoglobin 0.9 %THb (0-5.0); Total Hemoglobin 18.1 g/dL (12.0-18.0)
[2024-01-08 05:34] LABS: Arterial Blood Gas PEEP 5 cmH2O; Arterial Blood Gas Tidal Volume 470 ml; Arterial Blood Gas Vent Mode CMV; Arterial Blood Gas Ventilator rate 14 /MIN; Device VENTILATOR; Modified Allen's Test Pass; Site Drawn RIGHT RADIAL; pH ABG 7.236 (7.350-7.450)
[2024-01-08 05:42] LABS: Alanine Aminotransferase 57 U/L (6-50); Albumin Level 3.4 g/dL (3.5-5.1); Alkaline Phosphatase 199 U/L (38-126); Anion Gap 16 mmol/L (4-12); Aspartate Amino Transferase 320 U/L (17-59); Bilirubin,Total 0.6 mg/dL (0.2-1.3); Blood Urea Nitrogen 21 mg/dL (9-20); Carbon Dioxide 21 mmol/L (22-30); Chloride 101 mmol/L (98-107); Estimated Glomerular Filt Rate 59; Glucose 458 mg/dL (65-110); Magnesium 1.9 mg/dL (1.6-2.3); Potassium 3.4 mmol/L (3.4-5.0); Sodium 138 mmol/L (137-145)
[2024-01-08] MEDS: AMIODARONE 360 MG/D5W 200 ML 360 MG/200 ML BAG 16.67 MG IV CONT (06:00)
--- NOTE | 2024-01-08 06:13 | PC.NURSE ---
Family stated that patient is not compliant with his medications as prescribed. RN obtained verbal list of medication from patient's sister, Shruthi of medications that provider stated he needs to for sure take until his next follow up. Per patient family, patient has too many pills and doesn't take them because he doesn't like the way they make him feel . RN unable to complete home med rec; RN requested that family obtain an updated list of medications from patient provider. Shruthi stated that she would contact patient's provider and request that updated medication list be provided. Admission report provided to DMITRY Guerrero.
--- NOTE | 2024-01-08 06:55 | ADMGEN ---
This patient, Shree Chapman, was admitted to Intensive Care Unit-1. Patient/family oriented to hospital policies and general routines including ID bracelet, bed and alarms, visiting hours, pain management, procedures, bathroom and other care routines, personal items, smoking policy, room service/diet, and visiting hours. Information on how to activate the Rapid Response Team has been discussed. Patient/Family are encouraged to report perceived risks to care and to ask questions if they do not understand what they are told or what they should do.
[2024-01-08 08:22] LABS: Basophils Absolute Auto 0.1 K/mm3 (0.0-0.1); Basophils Percent Auto 0.4 % (0.2-1.2); Eosinophils Percent Auto 0.1 % (0-4.4); Hematocrit 57.2 % (42.0-52.0); Immature Granulocyte Percent A 0.6 % (0-0.5); Lymphocytes Absolute Auto 1.13 K/mm3 (0.9-3.2); Lymphocytes Percent Auto 6.6 % (18.3-44.2); Mean Corpuscular HGB Conc 31.5 g/dl (32-36); Mean Corpuscular Hemoglobin 27.7 pg (26-34); Mean Platelet Volume 10.1 fl (7.4-10.4); Monocytes Absolute Auto 0.9 K/mm3 (0.1-0.6); Monocytes Percent Auto 5.3 % (2.6-8.5); Neutrophils Absolute Auto 14.8 K/mm3 (1.3-6.7); Nucleated Red Blood Cells Perc 0.1 % (0.0-0.2); Platelet Count Result 269 k/mm3 (150-375); Red Cell Distribution Width 15.7 % (11.5-14.5)
[2024-01-08] MEDS: INSULIN HUMAN REGULAR (*BKC) 100 UNITS/ML 10 UNITS IV PUSH (08:28)
[2024-01-08] MEDS: AZITHROMYCIN 500 MG/NS 250 ML 500 MG/250 ML BAG 250 MG IVPB (08:29)
[2024-01-08] MEDS: LIDOCAINE HCL 1% PF INJ 5 ML VIAL INFILTRATE (08:35)
[2024-01-08 08:37] LABS: Cholesterol 162 mg/dL (0-200); HDL Direct 33 mg/dL
[2024-01-08 08:39] LABS: Alanine Aminotransferase 66 U/L (6-50); Albumin Level 3.7 g/dL (3.5-5.1); Alkaline Phosphatase 146 U/L (38-126); Anion Gap 14 mmol/L (4-12); Aspartate Amino Transferase 361 U/L (17-59); Bilirubin,Total 0.5 mg/dL (0.2-1.3); Blood Urea Nitrogen 24 mg/dL (9-20); Calcium 8.1 mg/dL (8.4-10.2); Carbon Dioxide 21 mmol/L (22-30); Chloride 103 mmol/L (98-107); Estimated Glomerular Filt Rate 39; Glucose 402 mg/dL (65-110); Lactic Acid Reflex 5.3 mmol/L (0.7-2.0); Magnesium 1.8 mg/dL (1.6-2.3); Potassium 3.8 mmol/L (3.4-5.0); Sodium 138 mmol/L (137-145)
[2024-01-08 08:48] LABS: LDL Cholesterol Direct 84 mg/dL
[2024-01-08] MEDS: INSULIN ASPART (*BKC) 100 UNITS/ML SUB-Q (08:52)
[2024-01-08] MEDS: POTASSIUM CHLORIDE 20 MEQ PACKET (FOR LIQUID) 40 MEQ FEED TUBE (08:53)
[2024-01-08] MEDS: PIPERACILLN/TAZ 3.375GM/NS50ML 3.375 GM/50 ML BAG IVPB ×2 (08:55→13:01)
[2024-01-08] MEDS: ATORVASTATIN 40 MG TABLET 80 MG PO (08:55)
[2024-01-08] MEDS: PANTOPRAZOLE SODIUM IV 40 MG VIAL IV PUSH (08:55)
[2024-01-08] MEDS: MINERAL OIL/WHITE PETROLATUM OINTMENT 1 APPLIC EACH EYE (08:55)
[2024-01-08 09:00] LABS: Procalcitonin 23.9 ng/mL
[2024-01-08 09:05] LABS: Hemoglobin A1C 8.5 % (<5.7)
--- NOTE | 2024-01-08 09:12 | ECG_ITS ---
Test Date: 2024-01-08 09:32:08 Measurements Intervals Garvin Rate: 77 P: 36 RI: 181 QRS: -23 QRSD: 113 T: 131 QT: 353 QTc: 400 Interpretive Statements SINUS RHYTHM INCOMPLETE LEFT BUNDLE BRANCH BLOCK ANTEROSEPTAL INFARCT, AGE INDETERMINATE CONSIDER INFERIOR INFARCT, AGE INDETERMINATE ST-T WAVE ABNORMALITY IN LAT/HIGH LAT LEADS- CONSIDER ISCHEMIA BASELINE ARTIFACT- I, III, AVR, AVL, V4-V5 ABNORMAL ECG Compared to ECG 01/07/2024 23:51:29 WIDE COMPLEX TACHYCARDIA NO LONGER PRESENT POSSIBLE ISCHEMIA NOW PRESENT Electronically Signed On 01-08-2024 10:01:43 BUSINESS PLANNING MANAGER by Cheng Gonzalez D.O.
[2024-01-08 09:34] LABS: Fractional Inspired Oxygen 60 %; HCO3 VBG 21.1 mEq/l (24.0-30.0); PCO2 VBG 51.2 mmHg (42.0-48.0); PO2 VBG 35.3 mmHg (35.0-45.0)
[2024-01-08 09:35] LABS: Arterial Blood Gas PEEP 8 cmH2O; Arterial Blood Gas Tidal Volume 470 ml; Arterial Blood Gas Vent Mode CMV; Arterial Blood Gas Ventilator rate 18 /MIN; Device VENTILATOR; pH VBG 7.232 (7.300-7.400)
[2024-01-08 09:50] LABS: INR 1.1; Prothrombin Time 14.8 Seconds (11.1-14.7)
[2024-01-08 09:51] LABS: Partial Thromboplastin Time 54.3 Seconds (22.3-36.8)
[2024-01-08 10:14] LABS: MRSA (PCR) NOT DETECTED (NOT DETECTE)
[2024-01-08 10:43] LABS: Toxigenic C. Diff NEGATIVE (NEGATIVE)
[2024-01-08] MEDS: CLOPIDOGREL BISULFATE 300 MG TABLET FEED TUBE (10:53)
[2024-01-08] MEDS: ASPIRIN 325 MG TABLET FEED TUBE (10:53)
[2024-01-08] MEDS: POTASSIUM/PHOSPHORUS/SODIUM 1.5 GM PACKET 1 PACKET FEED TUBE (10:54)
[2024-01-08 10:57] LABS: Glucose Point of Care 380 mg/dl (65-105)
[2024-01-08 11:04] LABS: Glucose Point of Care 337 mg/dl (65-105)
[2024-01-08] MEDS: INSULIN HUMAN REGULAR (*BKC) 100 UNITS in SODIUM CHLORIDE 0.9% IV 99 ML 10.5 UNITS IV CONT (11:27)
--- NOTE | 2024-01-08 12:03 | WPDCNINT ---
Assessment and Plan Assessment and plan (1) Acute respiratory failure: Code(s): J96.00 - Acute respiratory failure, unspecified whether with hypoxia or hypercapnia Status: Acute Assessment and Plan: Acute Respiratory failure secondary to pulmonary edema, aspiration pneumonia, non STEMI, cardiac arrest Chest CTA reviewed and negative for PE but showed small bilateral pleural effusions with extensive resume bibasilar dependent atelectasis versus pneumonia along with ground-glass opacity suggestive of pulmonary edema Chest x-ray and ABG reviewed. Peep increased to 8. Respiratory rate increased to 18. Repeat ABG ordered Continue full mechanical ventilation support to prevent hypoxemia/hypercarbia and end organ damage. Sedated with Versed and fentanyl now (2) Non-ST elevation ND (NSTEMI): Code(s): I21.4 - Non-ST elevation (NSTEMI) myocardial infarction Status: Acute Assessment and Plan: Patient presented with chest pain and shortness of breath and later had a cardiac arrest. He had elevated troponin. His EKG had abnormal ST-T changes although not diagnostic for ST segment elevation ND. Patient has history of complicated coronary disease with multiple PCIs in the past. Patient was started on heparin and amiodarone infusion and admitted to ICU. I spoke to Dr. Angel with Cardiology recommends the patient be transferred to [facility] where he receives his care through [facility] as patient has complicated coronary disease and PCI will require equipment that is not available at [facility]. I spoke to Dr. Gandara with Cardiology and he will evaluate patient once patient is transferred. He recommended 300 mg Plavix loading dose along with an aspirin which was administered to the patient. I will continue heparin Echo was ordered and is pending (3) Sepsis: Code(s): A41.9 - Sepsis, unspecified organism Status: Acute Assessment and Plan: Secondary to aspiration pneumonia UA is unremarkable Blood and sputum cultures have been sent Empiric Zosyn Conservative IV fluids due to congestive heart failure (4) Cardiac arrest: Code(s): I46.9 - Cardiac arrest, cause unspecified Status: Acute Assessment and Plan: Patient had a cardiac arrest during intubation which appeared to be respiratory in etiology. Patient later had episode of V-tach requiring defibrillation. He is currently on amiodarone infusion. Echo is ordered. Management of ND as above On holding sedation patient was arousable responsive and followed commands with all 4 extremities ruling out anoxic injury. Telemetry monitoring and monitor electrolytes. (5) HUMAIRA (acute kidney injury): Code(s): N17.9 - Acute kidney failure, unspecified Status: Acute Assessment and Plan: Patient presented with creatinine of 1.3 which has increased 1.7 this is likely secondary to cardiac arrest leading to hypoperfusion. Patient will be given 2 L fluid bolus Monitor urine output electrolytes and creatinine Check CK level Since patient is transferring to [facility] I will defer further evaluation including imaging at this time (6) Hypothyroidism: Code(s): E03.9 - Hypothyroidism, unspecified Status: Acute Assessment and Plan: Continue levothyroxine. Check TSH (7) Coronary artery disease: Code(s): I25.10 - Atherosclerotic heart disease of [place] coronary artery without angina pectoris Status: Acute Assessment and Plan: See above (8) Type 2 diabetes mellitus: Code(s): E11.9 - Type 2 diabetes mellitus without complications Status: Acute Assessment and Plan: Poorly controlled diabetes with hyperglycemia. Blood sugars remain elevated despite 10 units of IV regular insulin push in sliding scale. I have started patient on insulin infusion. (9) Pulmonary edema: Qualifiers: Chronicity: acute Qualified Code(s): J81.0 - Acute pulmonary edema Code(s): J81.1 - Chronic pulmonary edema Status: Acute Assessment and Plan: Echo pending (10) Congestive heart failure: Qualifiers: Heart failure chronicity: acute Code(s): I50.9 - Heart failure, unspecified Status: Acute Assessment and Plan: See above (11) V-tach: Code(s): I47.20 - Ventricular tachycardia, unspecified Status: Acute Assessment and Plan: Patient had episode of V-tach in the ER and defibrillated and received 1 round of CPR that time. He was started on amiodarone infusion which will be continued Plan DVT prophylaxis -heparin drip Stress ulcer prophylaxis -Protonix Nutrition - npo Code Status - Full Code I spoke to patient's girlfriend, sister and other family members at bedside and updated them with patient's status including acute respiratory failure, aspiration pneumonia, congestive heart failure, sepsis, HUMAIRA, myocardial infarction. I spoke to them about transferring patient to [facility] where patient receives his care and has his merchant patroller. I also discussed with them regarding inability of our Cardiology group to perform cardiac catheterization due to lack of acute med at this hospital. They verbalized understanding and were okay with transfer. I discussed risks and benefits of possible transfer and they were agreeable and agreed to proceed. I have spoken to transfer center, cardiology, ICU physician, hospitalist at and [facility] and provided them with patient's information. They have accepted the patient and will call once bed is available for transfer. Total Critical Care Time - 90 minutes Due to a high probability of clinically significant, life threatening deterioration, the patient required my highest level of preparedness to intervene emergently and I personally spent this critical care time directly and personally managing the patient. This critical care time included obtaining a history; examining the patient; pulse oximetry; ordering and review of studies; arranging urgent treatment with development of a management plan; evaluation of patient's response to treatment; frequent reassessment; and discussions with other providers. It was exclusive of separately billable procedures and treating other patients and teaching time. Please see Assessment and Plan section and the rest of the note for further information on patient assessment and treatment Gang Saw Operator Consult Note Consult date: 01/08/24 Reason for consult: Cardiac arrest, respiratory failure, ND, HPI: Shree Chapman is a 78 year old male with past medical history of coronary disease status post multiple PCIs,, diabetes, hypothyroidism, hypertension who receives his care at [facility] and [facility] was brought in by EMS this morning after he started having chest pain. Patient at this time is intubated and when I evaluated the patient there was no ER note. History was obtained from the patient's sister, girlfriend was at bedside and later speaking to ER physician by phone. Patient's girlfriend states the patient was doing absolutely fine yesterday evening when he had dinner in which he ate pizza. She states the patient had no fever cough shortness of breath prior to this. She states the patient is noncompliant with medications and also eats pretty unhealthy diet. She does not think that he checks his blood sugars regularly either. She states the patient came into the house and started telling her that he was having chest pain. He had run out of his nitroglycerin pills. He went outside to catch fresh air. Where he got nauseous and vomited. He was also having trouble breathing. At this time she called EMS. When EMS arrived patient was sinus tachycardia and was in respiratory distress. They placed patient on CPAP and brought him to the hospital. EKG during the trial was suggestive of STEMI as per EMS report. On arrival patient was diaphoretic cyanotic and had poor mental status. As per ER physician they tried to intubate the patient and it was a difficult intubation during intubation patient lost his pulse and received CPR with 2 rounds. As per sign-out patient was in PE. Following intubation patient again had 1 episode of V-tach where he was shocked and received 1 round of CPR. Post intubation patient woke up and was responsive and had purposeful movement. ER physician spoke to merchant patroller who recommended starting heparin infusion and amiodarone infusion admitting to ICU for plan to cardiac catheterization in the morning. When patient arrived to the ICU he was on propofol amiodarone and heparin infusion. Labs are obtained and sedation was held and patient eventually woke up and followed commands with all 4 extremities. 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 Type 2 diabetes mellitus Surgical History Surgical History History of cardiac catheterization History of coronary artery stent placement 06/27/2020: Stents to the diagonal branch, mid LAD, and ostial PDA/distal RCA at [facility]. 01/21/2020: Stent to the LAD per Dr. Juarez. Family History Family History Mother Diabetes mellitus Hypertension Father , Lung carcinoma Carcinoma, lung Sibling Kidney failure Heart attack Afib Social History Social History Social History: Surrogate medical decision maker: Farheen Person, significant other. Code status: Full code. Smoking status: Never smoker Second hand tobacco smoke exposure: Yes Alcohol intake: never Substance use: never Do You Feel Safe in your Home?: Yes Lack of Transportation: No Lack of Food: Never True Current Housing: I Have Housing Concerned About Future Housing: No Difficulty Paying Gas/Electric Bills: No Difficulty Paying for Meds: No Currently Unemployed: No Education: Bachelor's Degree Difficulty w/ Childcare or Family Care: No Additional living arrangements comments: Lives in [place]. Has 2 children. 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 Spiritual care concerns: No Meds Home Medications and Allergies Home Medications Medication Instructions Recorded Confirmed Type aspirin 81 mg chewable tablet 81 mg PO DAILY@0800 #30 tabs 01/22/20 01/08/24 Rx (Children's Aspirin) clopidogrel 75 mg tablet 75 mg PO DAILY #30 tabs 01/22/20 01/08/24 Rx levothyroxine 50 mcg capsule 50 mcg PO DAILY #30 caps 01/22/20 02/02/23 Rx metoprolol succinate 100 mg 100 mg PO DAILY #30 tabs 01/22/20 01/08/24 Rx tablet,extended release 24 hr nitroglycerin 0.4 mg sublingual 0.4 mg sublingual Q5M PRN chest 01/22/20 02/02/23 Rx tablet pain #25 tabs spironolactone 25 mg tablet 25 mg PO DAILY #30 tabs 01/22/20 02/02/23 Rx dapagliflozin propanediol 10 mg 10 mg PO DAILY 02/02/23 02/02/23 History tablet (Farxiga) ezetimibe 10 mg tablet 10 mg PO HS 02/02/23 02/02/23 History glimepiride 2 mg tablet 2 mg PO BID 02/02/23 01/08/24 History metformin 500 mg tablet 1,000 mg PO BID 02/02/23 01/08/24 History dulaglutide 3 mg/0.5 mL 3 mg subcut WEEKLY 01/08/24 01/08/24 History subcutaneous pen injector (Trulicity) isosorbide mononitrate 30 mg mg PO 01/08/24 History tablet,extended release 24 hr rosuvastatin 40 mg tablet 40 mg PO DAILY 01/08/24 01/08/24 History Allergies Allergy/AdvReac Type Severity Reaction Status Date / Time No Known Allergies Allergy Verified 01/08/24 06:02 Vital Signs Vital Signs - 24 hr 01/07/24 23:57 01/08/24 00:12 01/08/24 00:18 Temperature Pulse Rate 109 H 114 H 108 H Respiratory Rate 32 H 29 H Blood Pressure 148/118 H 208/127 H Pulse Oximetry 97 Oxygen Delivery Fraction of Inspired Oxygen 01/07/24 22:49 01/07/24 23:00 01/08/24 01:00 Temperature Pulse Rate 160 H 106 H 106 H Respiratory Rate 40 H Blood Pressure 150/120 H Pulse Oximetry 80 L 95 96 Oxygen Delivery Room Air Mechanical Ventilation Mechanical Ventilation Fraction of Inspired Oxygen 100 100 01/08/24 00:30 01/08/24 01:30 01/08/24 01:00 Temperature Pulse Rate 107 H 109 H 107 H Respiratory Rate 28 H 30 H 30 H Blood Pressure 189/114 H 172/105 H 203/118 H Pulse Oximetry 98 97 96 Oxygen Delivery Fraction of Inspired Oxygen 01/08/24 02:00 01/08/24 03:40 01/08/24 02:00 Temperature Pulse Rate 110 H 103 H 110 H Respiratory Rate 32 H 29 H Blood Pressure 192/117 H Pulse Oximetry 99 95 Oxygen Delivery Mechanical Ventilation Fraction of Inspired Oxygen 100 01/08/24 04:36 01/08/24 08:07 01/08/24 08:12 Temperature Pulse Rate 99 88 92 Respiratory Rate 28 H 30 H Blood Pressure Pulse Oximetry 98 Oxygen Delivery Mechanical Ventilation Fraction of Inspired Oxygen 60 01/08/24 08:00 01/08/24 10:00 01/08/24 07:00 Temperature 38.1 C H Pulse Rate 91 79 98 Respiratory Rate 30 H Blood Pressure 150/101 H Pulse Oximetry 98 Oxygen Delivery Fraction of Inspired Oxygen 01/08/24 08:00 01/08/24 09:00 01/08/24 10:00 Temperature 38.6 C H 38.7 C H 38.7 C H Pulse Rate 91 90 79 Respiratory Rate 29 H 32 H 27 H Blood Pressure 83/67 L 89/55 L 101/60 Pulse Oximetry 97 98 100 Oxygen Delivery Fraction of Inspired Oxygen 01/08/24 05:58 01/08/24 08:30 01/08/24 08:30 Temperature 38.6 C H Pulse Rate 99 99 99 Respiratory Rate 32 H Blood Pressure 150/101 H 98/78 L Pulse Oximetry 98 Oxygen Delivery Fraction of Inspired Oxygen 01/08/24 06:00 01/08/24 11:27 Temperature Pulse Rate 99 95 Respiratory Rate Blood Pressure 150/101 H Pulse Oximetry 98 Oxygen Delivery Mechanical Ventilation Fraction of Inspired Oxygen Exam Narrative: General: Pt is sedated, intubated and on mechanical ventilation Lungs/Chest: Trachea central Coarse BS B/L, bibasilar crackles Cardiac: RRR. Normal S1 S2. No murmurs Circulation: Pedal pulses are are weak but palpable and and symmetrical. Abdomen: Decreased bowel sounds. Obese. Soft. NT. ND. Extremities: No clubbing, cyanosis Warm. Patient has bilateral mild pitting edema : Jay in place Neurologic: On holding sedation patient open his eyes and regard examiner and followed commands and moved all 4 extremities. PERRL Results Labs 01/08/24 08:12 01/08/24 08:12 Labs: Impressions Chest X-Ray 01/07/24 23:39 IMPRESSION: 1. Endotracheal tube tip at the thoracic inlet, 12.7 cm from the shabnam. 2. Diffuse lung disease, likely moderate pulmonary edema. 3. Cardiomegaly. Abdomen X-Ray 01/08/24 05:34 Impression: NG tube in satisfactory position. Chest X-Ray 01/08/24 05:34 Impression: Support tubes, as above. Moderate to advanced pulmonary edema pattern with central congestive change. Chest CTA 01/08/24 06:12 Impression: No evidence of pulmonary embolus, aortic dissection, or aortic aneurysm. Small bilateral pleural effusions with extensive presumed bibasilar dependent atelectasis, versus pneumonia. Patchy airspace consolidation and ground glass opacity in the aerated lungs, which could represent pulmonary edema versus pneumonia. Head CT 01/08/24 06:41 Impression: No significant abnormality seen. Short CBC 01/08/24 01/08/24 01/08/24 Range/Units 00:24 00:24 00:24 WBC Cancelled 26.5 H Hgb Cancelled 18.7 H Hct Cancelled Plt Count 01/08/24 01/08/24 01/08/24 Range/Units 00:24 00:24 08:12 WBC 17.0 H Hgb 18.0 Hct 59.2 H 57.2 H Plt Count Cancelled 292 269 BMP 01/08/24 01/08/24 01/08/24 02:50 03:56 08:12 Sodium 138 138 Potassium 3.4 3.8 Chloride 101 103 Carbon Dioxide 21 L 21 L BUN 21 H 24 H Creatinine 1.30 1.20 1.70 H Glucose 458 H 402 H Calcium 8.0 L 8.1 L Cardiac Enzymes 01/08/24 01/08/24 01/08/24 Range/Units 01:40 08:12 09:01 Troponin I 27.800 H* 79.900 H* D 77.600 H* (0.000-0.034) ng/mL Liver Function 01/08/24 01/08/24 Range/Units 03:56 08:12 Total Bilirubin 0.6 0.5 (0.2-1.3) mg/dL AST 320 H 361 H (17-59) U/L ALT 57 H 66 H (6-50) U/L Alkaline Phosphatase 199 H 146 H (38-126) U/L Albumin 3.4 L 3.7 (3.5-5.1) g/dL Urine 01/08/24 Range/Units 02:44 Urine Color Yellow (Yellow) Urine Appearance Cloudy H (Clear) Urine pH 5.5 (5.0-9.0) Ur Specific [place] 1.032 (1.001-1.035) Urine Protein 3+ H (Negative) mg/dL Urine Glucose (UA) 3+ H (Negative) mg/dL ECG Interpretation: Sinus rhythm on the telemetry now EKG showed sinus rhythm with incomplete left bundle-branch block age-indeterminate anteroseptal infarct ST-T of abnormality but not diagnostic ST elevation. Hospitalist MIPS Advance Care Plan I have confirmed that the patient's Advanced Care Plan is present, code status is documented, or surrogate decision maker is listed in patient medical record.: Yes Medication Reconciliation I have utilized all available resources to obtain, update and review the patients current medications (includes all prescriptions, OTC, herbals, cannabis, and nutritional supplements).: Yes
[2024-01-08 12:23] LABS: Glucose Point of Care 328 mg/dl (65-105)
[2024-01-08 12:47] LABS: Alanine Aminotransferase 63 U/L (6-50); Albumin Level 3.3 g/dL (3.5-5.1); Alkaline Phosphatase 107 U/L (38-126); Anion Gap 8 mmol/L (4-12); Aspartate Amino Transferase 256 U/L (17-59); Bilirubin,Total 0.5 mg/dL (0.2-1.3); Blood Urea Nitrogen 27 mg/dL (9-20); Calcium 7.7 mg/dL (8.4-10.2); Carbon Dioxide 23 mmol/L (22-30); Chloride 109 mmol/L (98-107); Creatine Kinase 720 U/L (55-170); Estimated CRCL calculation 42 ml/min; Estimated Glomerular Filt Rate 42; Glucose 315 mg/dL (65-110); Potassium 3.7 mmol/L (3.4-5.0); Sodium 140 mmol/L (137-145)
[2024-01-08 12:52] LABS: Alveolar/Arterial O2 Gradient 236.8 mmHg; Base Excess ABG -6.9 mEq/l (+/-2.0); Device VENTILATOR; Fractional Inspired Oxygen 60 %; Modified Allen's Test Pass; Oxygen Content ABG 24.8 %vol (16.0-22.0); Oxyhemoglobin 98.3 % THb (90.0-100.0); PO2 ABG 156.9 mmHg (80.0-100.0); PO2 FiO2 Ratio Arterial Blood 2.62 %; Site Drawn RIGHT RADIAL; Total Hemoglobin 17.8 g/dL (12.0-18.0); pH ABG 7.357 (7.350-7.450)
[2024-01-08 12:53] LABS: Arterial Blood Gas PEEP 8 cmH2O; Arterial Blood Gas Tidal Volume 470 ml; Arterial Blood Gas Vent Mode CMV; Arterial Blood Gas Ventilator rate 18 /MIN
[2024-01-08 13:12] LABS: Glucose Point of Care 311 mg/dl (65-105)
[2024-01-08] MEDS: ACETAMINOPHEN 325 MG TABLET 650 MG PO (13:13)
[2024-01-08] MEDS: CENTRAL LINE FLUSH 10 ML IV PUSH (13:14)
[2024-01-08] MEDS: MIDAZOLAM 100MG/NS 100ML(*CRX) 100 MG/100 ML BAG IV CONT (13:27)
--- NOTE | 2024-01-08 13:30 | PM.CNCAR ---
Assessment and Plan Assessment and plan (1) V-tach: Code(s): I47.20 - Ventricular tachycardia, unspecified Status: Acute (2) Acute respiratory failure: Code(s): J96.00 - Acute respiratory failure, unspecified whether with hypoxia or hypercapnia Status: Acute (3) Congestive heart failure: Qualifiers: Heart failure chronicity: acute Code(s): I50.9 - Heart failure, unspecified Status: Acute (4) Coronary artery disease: Code(s): I25.10 - Atherosclerotic heart disease of [place] coronary artery without angina pectoris Status: Acute (5) Non-ST elevation NC (NSTEMI): Code(s): I21.4 - Non-ST elevation (NSTEMI) myocardial infarction Status: Acute Plan 1. NSTEMI - JASON Score 6 2. Chronic systolic Heart Failure NYHA III-IV, Class C ICM Echo pending; no prior echo in our system 3. PEA Arrest - during intubation 4. Monomorphic VT 5. CAD: prior PCIs to LAD, MANAGER URGENT CARE of RCA with L--->R collaterasl 6. HTN 7. DM 8. HUMAIRA -Mr Dubon's presentation is consistent with type 1 NC. Troponin has peaked at 79. His ECG is reassuring with no significant ST or T-wave changes. Does not have any pressor requirement and his liver functions and lactate levels are improving. Most likely the hypotension which ensued during the PEA arrest/VT/CPR contributed to hypoperfusion leading to elevated lactate/deranged liver and renal functions. No significant ectopy noted on tele. -He needs a coronary angiography to define his anatomy and a possible PCI. 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 The patient would be better served if he is transferred to a different facility. - Continue heparin and amiodarone infusion - Continue ASA, plavix, statin - Echo pending - serial lactate, LFT - Antibiotic/vent mgt as per primary team/ICU -thank you for allowing me to partake in the care of this gentleman. Please call me if there are any questions or concerns History of Present Illness History of Present Illness Consult date/time: 01/08/24 13:30 Reason For Visit: Cardiopulmonary arrest Narrative: Mr Shree Chapman is a 78 year old gentleman who I was called see by Dr. Palomo in the morning. His history will was obtained from the patient prior to patient chart, current documentation and patient's family. He is known to have significant known coronary disease, with prior stents in the LAD with a history of ISR, MANAGER URGENT CARE of the RCA. Was last seen in [facility] when he presented with a NSTEMI. He was transferred out to [facility] for angiography and possible PCI because of the on availability of atherectomy devices. He has since being under care of cardiology at [facility]. His sister and his girlfriend told me he was having intermittent episodes of angina for the past few weeks for you which he was taking nitro as needed. He was scheduled to have an echo on the and a possible left heart catheterization after that. He has a history of nonadherence to his medications. Unfortunately he developed chest pain yesterday along with the dyspnea which necessitated EMS being called. In 100 I will the patient was diaphoretic, cyanotic and had altered sensorium. He had the PEA arrest during a difficult intubation. Subsequently was shocked once for an episode of VT which happened after the intubation. ECG done at that time showed a white complex tachycardia. Subsequently normal EKGs were done. An EKG done in the morning shows normal sinus rhythm with incomplete left bundle, Q-waves in inferior leads. No significant ST or T-wave changes Troponin peaked at 79 Initial lactate was around 5.3 which improved to 3.2 Liver functions are improving Echo is pending. 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 Type 2 diabetes mellitus Surgical History Surgical History History of cardiac catheterization History of coronary artery stent placement 06/27/2020: Stents to the diagonal branch, mid LAD, and ostial PDA/distal RCA at [facility]. 01/21/2020: Stent to the LAD per Dr. Juarez. Family History Family History Mother Diabetes mellitus Hypertension Father , Lung carcinoma Carcinoma, lung Sibling Kidney failure Heart attack Afib Social History Social History Social History: Surrogate medical decision maker: Farheen Person, significant other. Code status: Full code. Smoking status: Never smoker Second hand tobacco smoke exposure: Yes Alcohol intake: never Substance use: never Do You Feel Safe in your Home?: Yes Lack of Transportation: No Lack of Food: Never True Current Housing: I Have Housing Concerned About Future Housing: No Difficulty Paying Gas/Electric Bills: No Difficulty Paying for Meds: No Currently Unemployed: No Education: Bachelor's Degree Difficulty w/ Childcare or Family Care: No Additional living arrangements comments: Lives in [place]. Has 2 children. 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 Spiritual care concerns: No Meds Home Medications and Allergies Home Medications Medication Instructions Recorded Confirmed Type aspirin 81 mg chewable tablet 81 mg PO DAILY@0800 #30 tabs 01/22/20 01/08/24 Rx (Children's Aspirin) clopidogrel 75 mg tablet 75 mg PO DAILY #30 tabs 01/22/20 01/08/24 Rx levothyroxine 50 mcg capsule 50 mcg PO DAILY #30 caps 01/22/20 02/02/23 Rx metoprolol succinate 100 mg 100 mg PO DAILY #30 tabs 01/22/20 01/08/24 Rx tablet,extended release 24 hr nitroglycerin 0.4 mg sublingual 0.4 mg sublingual Q5M PRN chest 01/22/20 02/02/23 Rx tablet pain #25 tabs spironolactone 25 mg tablet 25 mg PO DAILY #30 tabs 01/22/20 02/02/23 Rx dapagliflozin propanediol 10 mg 10 mg PO DAILY 02/02/23 02/02/23 History tablet (Farxiga) ezetimibe 10 mg tablet 10 mg PO HS 02/02/23 02/02/23 History glimepiride 2 mg tablet 2 mg PO BID 02/02/23 01/08/24 History metformin 500 mg tablet 1,000 mg PO BID 02/02/23 01/08/24 History dulaglutide 3 mg/0.5 mL 3 mg subcut WEEKLY 01/08/24 01/08/24 History subcutaneous pen injector (Trulicity) isosorbide mononitrate 30 mg mg PO 01/08/24 History tablet,extended release 24 hr rosuvastatin 40 mg tablet 40 mg PO DAILY 01/08/24 01/08/24 History Allergies Allergy/AdvReac Type Severity Reaction Status Date / Time No Known Allergies Allergy Verified 01/08/24 06:02 Vital Signs Vital Signs - 24 hr 01/07/24 23:57 01/08/24 00:12 01/08/24 00:18 Temperature Pulse Rate 109 H 114 H 108 H Respiratory Rate 32 H 29 H Blood Pressure 148/118 H 208/127 H Pulse Oximetry 97 Oxygen Delivery Fraction of Inspired Oxygen 01/07/24 22:49 01/07/24 23:00 01/08/24 01:00 Temperature Pulse Rate 160 H 106 H 106 H Respiratory Rate 40 H Blood Pressure 150/120 H Pulse Oximetry 80 L 95 96 Oxygen Delivery Room Air Mechanical Ventilation Mechanical Ventilation Fraction of Inspired Oxygen 100 100 01/08/24 00:30 01/08/24 01:30 01/08/24 01:00 Temperature Pulse Rate 107 H 109 H 107 H Respiratory Rate 28 H 30 H 30 H Blood Pressure 189/114 H 172/105 H 203/118 H Pulse Oximetry 98 97 96 Oxygen Delivery Fraction of Inspired Oxygen 01/08/24 02:00 01/08/24 03:40 01/08/24 02:00 Temperature Pulse Rate 110 H 103 H 110 H Respiratory Rate 32 H 29 H Blood Pressure 192/117 H Pulse Oximetry 99 95 Oxygen Delivery Mechanical Ventilation Fraction of Inspired Oxygen 100 01/08/24 04:36 01/08/24 08:07 01/08/24 08:12 Temperature Pulse Rate 99 88 92 Respiratory Rate 28 H 30 H Blood Pressure Pulse Oximetry 98 Oxygen Delivery Mechanical Ventilation Fraction of Inspired Oxygen 60 01/08/24 08:00 01/08/24 10:00 01/08/24 07:00 Temperature 38.1 C H Pulse Rate 91 79 98 Respiratory Rate 30 H Blood Pressure 150/101 H Pulse Oximetry 98 Oxygen Delivery Fraction of Inspired Oxygen 01/08/24 08:00 01/08/24 09:00 01/08/24 10:00 Temperature 38.6 C H 38.7 C H 38.7 C H Pulse Rate 91 90 79 Respiratory Rate 29 H 32 H 27 H Blood Pressure 83/67 L 89/55 L 101/60 Pulse Oximetry 97 98 100 Oxygen Delivery Fraction of Inspired Oxygen 01/08/24 05:58 01/08/24 08:30 01/08/24 08:30 Temperature 38.6 C H Pulse Rate 99 99 99 Respiratory Rate 32 H Blood Pressure 150/101 H 98/78 L Pulse Oximetry 98 Oxygen Delivery Fraction of Inspired Oxygen 01/08/24 06:00 01/08/24 12:00 01/08/24 12:00 Temperature 38.7 C H Pulse Rate 99 93 93 Respiratory Rate 22 H Blood Pressure 150/101 H 102/69 Pulse Oximetry 99 Oxygen Delivery Fraction of Inspired Oxygen 01/08/24 12:00 01/08/24 11:27 01/08/24 08:00 Temperature Pulse Rate 93 95 91 Respiratory Rate 22 H 29 H Blood Pressure Pulse Oximetry 99 98 98 Oxygen Delivery Mechanical Ventilation Mechanical Ventilation Mechanical Ventilation Fraction of Inspired Oxygen 60 60 01/08/24 12:00 01/08/24 13:13 01/08/24 13:27 Temperature 38.7 C H Pulse Rate 94 93 Respiratory Rate 26 H 21 H Blood Pressure Pulse Oximetry 99 Oxygen Delivery Mechanical Ventilation Fraction of Inspired Oxygen 60 Exam Narrative: General: Pt is sedated, intubated and on mechanical ventilation Lungs/Chest: Trachea central Coarse BS B/L, bibasilar crackles Cardiac: RRR. Normal S1 S2. No murmurs Circulation: Pedal pulses are are weak but palpable and and symmetrical. Abdomen: Decreased bowel sounds. Obese. Soft. NT. ND. Extremities: No clubbing, cyanosis Warm. Patient has bilateral mild pitting edema : Jay in place Neurologic: On holding sedation patient open his eyes and regard examiner and followed commands and moved all 4 extremities. PERRL Results Labs and Meds 01/08/24 08:12 01/08/24 12:31 Lab results: Cardiac Enzymes 01/08/24 01/08/24 01/08/24 Range/Units 01:40 03:56 08:12 AST 320 H 361 H (17-59) U/L Troponin I 27.800 H* 79.900 H* D (0.000-0.034) ng/mL 01/08/24 01/08/24 Range/Units 09:01 12:31 AST 256 H (17-59) U/L Troponin I 77.600 H* (0.000-0.034) ng/mL Coagulation 01/08/24 01/08/24 Range/Units 00:25 09:17 PT 14.7 14.8 H (11.1-14.7) Seconds APTT 39.1 H 54.3 H (22.3-36.8) Seconds Lipids 01/08/24 01/08/24 Range/Units 01:40 08:12 Triglycerides 298 H (<150) mg/dL Cholesterol 162 (0-200) mg/dL CBC 01/08/24 01/08/24 01/08/24 Range/Units 00:24 00:24 00:24 WBC Cancelled 26.5 H RBC Cancelled 6.64 H Hgb Cancelled Hct Plt Count Lymph # (Auto) [place] # (Auto) Eos # (Auto) Baso # (Auto) 01/08/24 01/08/24 01/08/24 Range/Units 00:24 00:24 00:24 WBC RBC Hgb 18.7 H Hct Cancelled 59.2 H Plt Count Cancelled 292 Lymph # (Auto) Cancelled [place] # (Auto) Eos # (Auto) Baso # (Auto) 01/08/24 01/08/24 01/08/24 Range/Units 00:24 00:24 00:24 WBC RBC Hgb Hct Plt Count Lymph # (Auto) Not Reportable [place] # (Auto) Cancelled Not Reportable Eos # (Auto) Cancelled Not Reportable Baso # (Auto) Cancelled 01/08/24 01/08/24 Range/Units 00:24 08:12 WBC 17.0 H RBC 6.50 H Hgb 18.0 Hct 57.2 H Plt Count 269 Lymph # (Auto) 1.13 [place] # (Auto) 0.9 H Eos # (Auto) 0.0 Baso # (Auto) Not Reportable 0.1 Comprehensive Metabolic Panel 01/08/24 01/08/24 01/08/24 Range/Units 02:50 03:56 08:12 Sodium 138 138 (137-145) mmol/L Potassium 3.4 3.8 (3.4-5.0) mmol/L Chloride 101 103 (98-107) mmol/L Carbon Dioxide 21 L 21 L (22-30) mmol/L BUN 21 H 24 H (9-20) mg/dL Creatinine 1.30 1.20 1.70 H (0.8-1.5) mg/dL Glucose 458 H 402 H (65-110) mg/dL Calcium 8.0 L 8.1 L (8.4-10.2) mg/dL AST 320 H 361 H (17-59) U/L ALT 57 H 66 H (6-50) U/L Alkaline Phosphatase 199 H 146 H (38-126) U/L Total Protein 6.0 L 6.0 L (6.3-8.2) g/dL Albumin 3.4 L 3.7 (3.5-5.1) g/dL 01/08/24 Range/Units 12:31 Sodium 140 (137-145) mmol/L Potassium 3.7 (3.4-5.0) mmol/L Chloride 109 H (98-107) mmol/L Carbon Dioxide 23 (22-30) mmol/L BUN 27 H (9-20) mg/dL Creatinine 1.60 H (0.8-1.5) mg/dL Glucose 315 H (65-110) mg/dL Calcium 7.7 L (8.4-10.2) mg/dL AST 256 H (17-59) U/L ALT 63 H (6-50) U/L Alkaline Phosphatase 107 (38-126) U/L Total Protein 6.0 L (6.3-8.2) g/dL Albumin 3.3 L (3.5-5.1) g/dL Intake and Output 01/07/24 01/08/24 01/08/24 23:59 07:59 15:59 Intake Total 1341.8 1469.0 Output Total 175 Balance 1166.8 1469.0 Intake: IV 1341.8 1469.0 Amiodarone 360 mg/D5w 200 ml 200 360 mg In 200 ml @ 1 MG/MIN 33. 333 mls/hr IV CONT .Q6H ONE Rx# :[id number] Heparin Sod/D5w 100 Units/ml 25 92.3 ,000 units In 250 ml @ 1,000 UNITS/HR 10 mls/hr IV CONT . Q24H [facility] Rx#:[id number] Insulin Human Regular (*Bkc) 18.5 100 units In Sodium Chloride 0. 9% IV 99 ml @ 10.5 UNITS/HR 10. 5 mls/hr IV CONT .Q9H32M [facility] Rx #:[id number] Propofol IV Emulsion 100 ml @ 41.8 58.2 25 MCG/KG/MIN 17.1 mls/hr IV CONT .Q5H51M [facility] Rx#:[id number] Sodium Chloride 0.9% IV 1,000 1000 1000 ml @ 999 mls/hr IV CONT .Q1H1M [facility] Rx#:[id number] Azithromycin 500 mg/Ns 250 ml 250 500 mg In 250 ml @ 250 mls/hr IVPB ONCE ONE Rx#:[id number] Piperacilln/Tyler 3.375GM/Ns50ml 50 3.375 gm In 50 ml @ 100 mls/hr IVPB Q6HR [facility] Rx#:[id number] cefTRIAXone 2 GM/NS 100 ML 2 gm 100 In 100 ml @ 200 mls/hr IVPB ONCE [facility] Rx#:[id number] Oral 0 Output: Catheter Urine 175 Urethral Catheter 175 Other: Number of Bowel Movements Today 3 Patient Weight 01/08/24 23:59 Weight 105.1 kg
[2024-01-08 13:48] LABS: Lactic Acid Reflex 3.2 mmol/L (0.7-2.0)
--- NOTE | 2024-01-08 13:57 | PM.SD2 ---
Same Day Admit/Disch: HPI History of Present Illness Chief complaint: Cardiopulmonary arrest Narrative: Shree Chapman is a 78 year old male who presented to the ER yesterday with shortness of breath and respiratory distress and chest pain. He also had an episode of nausea and vomiting. EMS was called at home. When EMS arrived patient was tachycardic and was in respiratory distress was placed on CPAP and brought to the hospital. EKG was suggestive of STEMI. On arrival to the ED patient was intubated. During intubation patient lost the balls and received 2 rounds of CPR. Patient also had 1 episode of V-tach for which he was shocked and received 1 in round of CPR. Patient has been more responsive since then with purposeful new movement. Patient was started on heparin drip and amiodarone infusion was admitted to ICU for further treatment. 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 Type 2 diabetes mellitus Surgical History Surgical History History of cardiac catheterization History of coronary artery stent placement 06/27/2020: Stents to the diagonal branch, mid LAD, and ostial PDA/distal RCA at E. 01/21/2020: Stent to the LAD per Dr. Juarez. Family History Family History Mother Diabetes mellitus Hypertension Father , Lung carcinoma Carcinoma, lung Sibling Kidney failure Heart attack Afib Social History Social History Social History: Surrogate medical decision maker: Farheen Person, significant other. Code status: Full code. Smoking status: Never smoker Second hand tobacco smoke exposure: Yes Alcohol intake: never Substance use: never Do You Feel Safe in your Home?: Yes Lack of Transportation: No Lack of Food: Never True Current Housing: I Have Housing Concerned About Future Housing: No Difficulty Paying Gas/Electric Bills: No Difficulty Paying for Meds: No Currently Unemployed: No Education: Bachelor's Degree Difficulty w/ Childcare or Family Care: No Additional living arrangements comments: Lives in [place]. Has 2 children. 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 Spiritual care concerns: No Same Day Admit/Disch: Med Pre-admit Medications Home Medications Medication Instructions Recorded Confirmed Type aspirin 81 mg chewable tablet 81 mg PO DAILY@0800 #30 tabs 01/22/20 01/08/24 Rx (Children's Aspirin) clopidogrel 75 mg tablet 75 mg PO DAILY #30 tabs 01/22/20 01/08/24 Rx levothyroxine 50 mcg capsule 50 mcg PO DAILY #30 caps 01/22/20 02/02/23 Rx metoprolol succinate 100 mg 100 mg PO DAILY #30 tabs 01/22/20 01/08/24 Rx tablet,extended release 24 hr nitroglycerin 0.4 mg sublingual 0.4 mg sublingual Q5M PRN chest 01/22/20 02/02/23 Rx tablet pain #25 tabs spironolactone 25 mg tablet 25 mg PO DAILY #30 tabs 01/22/20 02/02/23 Rx dapagliflozin propanediol 10 mg 10 mg PO DAILY 02/02/23 02/02/23 History tablet (Farxiga) ezetimibe 10 mg tablet 10 mg PO HS 02/02/23 02/02/23 History glimepiride 2 mg tablet 2 mg PO BID 02/02/23 01/08/24 History metformin 500 mg tablet 1,000 mg PO BID 02/02/23 01/08/24 History dulaglutide 3 mg/0.5 mL 3 mg subcut WEEKLY 01/08/24 01/08/24 History subcutaneous pen injector (Trulicity) isosorbide mononitrate 30 mg mg PO 01/08/24 History tablet,extended release 24 hr rosuvastatin 40 mg tablet 40 mg PO DAILY 01/08/24 01/08/24 History Review of Systems Review of Systems ROS unobtainable: Yes unobtainable due to endotracheal tube and unobtainable due to mental status Exam Narrative: General: Pt is sedated, intubated and on mechanical ventilation Lungs/Chest: Trachea central Coarse BS B/L, bibasilar crackles Cardiac: RRR. Normal S1 S2. No murmurs Circulation: Pedal pulses are are weak but palpable and and symmetrical. Abdomen: Decreased bowel sounds. Obese. Soft. NT. ND. Extremities: No clubbing, cyanosis Warm. Patient has bilateral mild pitting edema : Jay in place Neurologic: Awake and follow some commands. DS: Data Data Completed and Pending Labs on day of discharge: Labs from last 24 hours 01/08/24 01/08/24 01/08/24 13:08 12:40 12:31 WBC RBC Hgb Hct MCV MCH MCHC RDW Plt Count MPV Immature Gran % (Auto) Neut % (Auto) Lymph % (Auto) [place] % (Auto) Eos % (Auto) Baso % (Auto) Lymph # (Auto) [place] # (Auto) Eos # (Auto) Baso # (Auto) Abs Immat Gran (auto) Absolute Neuts (auto) Absolute Nucleated RBC Total Counted Neutrophils % (Manual) Band Neutrophils % Lymphocytes % (Manual) Monocytes % (Manual) Eosinophils % (Manual) Basophils % (Manual) Nucleated RBC % Abs Neuts (Manual) Abs Lymphs (Manual) Abs Monocytes (Manual) Absolute Eos (Manual) Abs Basophils (Manual) Platelet Estimate % Immature Plt Fraction Poikilocytosis Schistocytes PT INR APTT Puncture Site Right radial ABG pH 7.357 ABG pCO2 31.0 L ABG pO2 156.9 H ABG PO2/FiO2 Ratio 2.62 ABG HCO3 17.0 L ABG O2 Saturation 99.0 ABG O2 Content 24.8 H ABG Base Excess -6.9 VBG pH VBG pCO2 VBG pO2 VBG HCO3 A-a Gradient 236.8 Oxyhemoglobin 98.3 Carboxyhemoglobin Methemoglobin Reduced Hemoglobin Total Hemoglobin 17.8 O2 Delivery Device Ventilator O2 Liters/Min Not Reportable Minute Volume Not Reportable Vent Rate 18 Vent Mode Cmv FiO2 60 Tidal Volume 470 PEEP 8 Peak Inspir Pressure Not Reportable Pressure Support Not Reportable Sodium 140 Potassium 3.7 Chloride 109 H Carbon Dioxide 23 Anion Gap 8 BUN 27 H Creatinine 1.60 H Estim Creat Clear Calc 42 Estimated GFR 42 L Glucose 315 H POC Capillary Glucose 311 H Hemoglobin A1c Lactic Acid 3.2 H Calcium 7.7 L Phosphorus Magnesium Total Bilirubin 0.5 AST 256 H ALT 63 H Alkaline Phosphatase 107 Total Creatine Kinase 720 H Troponin I NT-Pro-B Natriuret Pep Total Protein 6.0 L Albumin 3.3 L Triglycerides Cholesterol LDL Cholesterol Direct HDL Direct Procalcitonin TSH (Reflex) Free T4 Urine Color Urine Appearance Urine pH Ur Specific [place] Urine Protein Urine Glucose (UA) Urine Ketones Ur Blood (Man) Urine Nitrate Urine Bilirubin Urine Urobilinogen Add Ur Microanalysis Leukocyte Esterase Rfl Urine RBC Urine WBC Ur Squamous Epith Cells Urine Bacteria Urine Casts Nasal MRSA (PCR) C. difficile (PCR) 01/08/24 01/08/24 01/08/24 12:11 11:02 09:18 WBC RBC Hgb Hct MCV MCH MCHC RDW Plt Count MPV Immature Gran % (Auto) Neut % (Auto) Lymph % (Auto) [place] % (Auto) Eos % (Auto) Baso % (Auto) Lymph # (Auto) [place] # (Auto) Eos # (Auto) Baso # (Auto) Abs Immat Gran (auto) Absolute Neuts (auto) Absolute Nucleated RBC Total Counted Neutrophils % (Manual) Band Neutrophils % Lymphocytes % (Manual) Monocytes % (Manual) Eosinophils % (Manual) Basophils % (Manual) Nucleated RBC % Abs Neuts (Manual) Abs Lymphs (Manual) Abs Monocytes (Manual) Absolute Eos (Manual) Abs Basophils (Manual) Platelet Estimate % Immature Plt Fraction Poikilocytosis Schistocytes PT INR APTT Puncture Site ABG pH ABG pCO2 ABG pO2 ABG PO2/FiO2 Ratio ABG HCO3 ABG O2 Saturation ABG O2 Content ABG Base Excess VBG pH 7.232 L* VBG pCO2 51.2 H VBG pO2 35.3 VBG HCO3 21.1 L A-a Gradient Oxyhemoglobin Carboxyhemoglobin Methemoglobin Reduced Hemoglobin Total Hemoglobin O2 Delivery Device Ventilator O2 Liters/Min Not Reportable Minute Volume Not Reportable Vent Rate 18 Vent Mode Cmv FiO2 60 Tidal Volume 470 PEEP 8 Peak Inspir Pressure Not Reportable Pressure Support Not Reportable Sodium Potassium Chloride Carbon Dioxide Anion Gap BUN Creatinine Estim Creat Clear Calc Estimated GFR Glucose POC Capillary Glucose 328 H 337 H Hemoglobin A1c Lactic Acid Calcium Phosphorus Magnesium Total Bilirubin AST ALT Alkaline Phosphatase Total Creatine Kinase Troponin I NT-Pro-B Natriuret Pep Total Protein Albumin Triglycerides Cholesterol LDL Cholesterol Direct HDL Direct Procalcitonin TSH (Reflex) Free T4 Urine Color Urine Appearance Urine pH Ur Specific [place] Urine Protein Urine Glucose (UA) Urine Ketones Ur Blood (Man) Urine Nitrate Urine Bilirubin Urine Urobilinogen Add Ur Microanalysis Leukocyte Esterase Rfl Urine RBC Urine WBC Ur Squamous Epith Cells Urine Bacteria Urine Casts Nasal MRSA (PCR) C. difficile (PCR) 01/08/24 01/08/24 01/08/24 09:17 09:01 08:12 WBC 17.0 H RBC 6.50 H Hgb 18.0 Hct 57.2 H MCV 88.0 MCH 27.7 MCHC 31.5 L RDW 15.7 H Plt Count 269 MPV 10.1 Immature Gran % (Auto) 0.6 H Neut % (Auto) 87.0 H Lymph % (Auto) 6.6 L [place] % (Auto) 5.3 Eos % (Auto) 0.1 Baso % (Auto) 0.4 Lymph # (Auto) 1.13 [place] # (Auto) 0.9 H Eos # (Auto) 0.0 Baso # (Auto) 0.1 Abs Immat Gran (auto) 0.10 H Absolute Neuts (auto) 14.8 H Absolute Nucleated RBC 0.020 H Total Counted Neutrophils % (Manual) Band Neutrophils % Lymphocytes % (Manual) Monocytes % (Manual) Eosinophils % (Manual) Basophils % (Manual) Nucleated RBC % 0.1 Abs Neuts (Manual) Abs Lymphs (Manual) Abs Monocytes (Manual) Absolute Eos (Manual) Abs Basophils (Manual) Platelet Estimate % Immature Plt Fraction Poikilocytosis Schistocytes PT 14.8 H INR 1.1 APTT 54.3 H Puncture Site ABG pH ABG pCO2 ABG pO2 ABG PO2/FiO2 Ratio ABG HCO3 ABG O2 Saturation ABG O2 Content ABG Base Excess VBG pH VBG pCO2 VBG pO2 VBG HCO3 A-a Gradient Oxyhemoglobin Carboxyhemoglobin Methemoglobin Reduced Hemoglobin Total Hemoglobin O2 Delivery Device O2 Liters/Min Minute Volume Vent Rate Vent Mode FiO2 Tidal Volume PEEP Peak Inspir Pressure Pressure Support Sodium 138 Potassium 3.8 Chloride 103 Carbon Dioxide 21 L Anion Gap 14 H BUN 24 H Creatinine 1.70 H Estim Creat Clear Calc Not Reportable Estimated GFR 39 L Glucose 402 H POC Capillary Glucose Hemoglobin A1c 8.5 H Lactic Acid 5.3 H* Calcium 8.1 L Phosphorus 2.0 L Magnesium 1.8 Total Bilirubin 0.5 AST 361 H ALT 66 H Alkaline Phosphatase 146 H Total Creatine Kinase Troponin I 77.600 H* 79.900 H* D NT-Pro-B Natriuret Pep Total Protein 6.0 L Albumin 3.7 Triglycerides Cholesterol 162 LDL Cholesterol Direct 84 HDL Direct 33 Procalcitonin 23.9 TSH (Reflex) Free T4 Urine Color Urine Appearance Urine pH Ur Specific [place] Urine Protein Urine Glucose (UA) Urine Ketones Ur Blood (Man) Urine Nitrate Urine Bilirubin Urine Urobilinogen Add Ur Microanalysis Leukocyte Esterase Rfl Urine RBC Urine WBC Ur Squamous Epith Cells Urine Bacteria Urine Casts Nasal MRSA (PCR) C. difficile (PCR) 01/08/24 01/08/24 01/08/24 08:10 07:50 05:18 WBC RBC Hgb Hct MCV MCH MCHC RDW Plt Count MPV Immature Gran % (Auto) Neut % (Auto) Lymph % (Auto) [place] % (Auto) Eos % (Auto) Baso % (Auto) Lymph # (Auto) [place] # (Auto) Eos # (Auto) Baso # (Auto) Abs Immat Gran (auto) Absolute Neuts (auto) Absolute Nucleated RBC Total Counted Neutrophils % (Manual) Band Neutrophils % Lymphocytes % (Manual) Monocytes % (Manual) Eosinophils % (Manual) Basophils % (Manual) Nucleated RBC % Abs Neuts (Manual) Abs Lymphs (Manual) Abs Monocytes (Manual) Absolute Eos (Manual) Abs Basophils (Manual) Platelet Estimate % Immature Plt Fraction Poikilocytosis Schistocytes PT INR APTT Puncture Site Right radial ABG pH 7.236 L* ABG pCO2 48.0 H ABG pO2 167.7 H ABG PO2/FiO2 Ratio 1.68 ABG HCO3 19.9 L ABG O2 Saturation 98.8 ABG O2 Content 25.3 H ABG Base Excess -7.8 VBG pH VBG pCO2 VBG pO2 VBG HCO3 A-a Gradient 497.3 Oxyhemoglobin 98.3 Carboxyhemoglobin 0.4 Methemoglobin 0.4 Reduced Hemoglobin 0.9 Total Hemoglobin 18.1 H O2 Delivery Device Ventilator O2 Liters/Min Not Reportable Minute Volume Not Reportable Vent Rate 14 Vent Mode Cmv FiO2 100 Tidal Volume 470 PEEP 5 Peak Inspir Pressure Not Reportable Pressure Support Not Reportable Sodium Potassium Chloride Carbon Dioxide Anion Gap BUN Creatinine Estim Creat Clear Calc Estimated GFR Glucose POC Capillary Glucose 380 H Hemoglobin A1c Lactic Acid Calcium Phosphorus Magnesium Total Bilirubin AST ALT Alkaline Phosphatase Total Creatine Kinase Troponin I NT-Pro-B Natriuret Pep Total Protein Albumin Triglycerides Cholesterol LDL Cholesterol Direct HDL Direct Procalcitonin TSH (Reflex) 4.800 H Free T4 Pending Urine Color Urine Appearance Urine pH Ur Specific [place] Urine Protein Urine Glucose (UA) Urine Ketones Ur Blood (Man) Urine Nitrate Urine Bilirubin Urine Urobilinogen Add Ur Microanalysis Leukocyte Esterase Rfl Urine RBC Urine WBC Ur Squamous Epith Cells Urine Bacteria Urine Casts Nasal MRSA (PCR) Not detected C. difficile (PCR) Negative 01/08/24 01/08/24 01/08/24 03:56 02:50 02:44 WBC RBC Hgb Hct MCV MCH MCHC RDW Plt Count MPV Immature Gran % (Auto) Neut % (Auto) Lymph % (Auto) [place] % (Auto) Eos % (Auto) Baso % (Auto) Lymph # (Auto) [place] # (Auto) Eos # (Auto) Baso # (Auto) Abs Immat Gran (auto) Absolute Neuts (auto) Absolute Nucleated RBC Total Counted Neutrophils % (Manual) Band Neutrophils % Lymphocytes % (Manual) Monocytes % (Manual) Eosinophils % (Manual) Basophils % (Manual) Nucleated RBC % Abs Neuts (Manual) Abs Lymphs (Manual) Abs Monocytes (Manual) Absolute Eos (Manual) Abs Basophils (Manual) Platelet Estimate % Immature Plt Fraction Poikilocytosis Schistocytes PT INR APTT Puncture Site ABG pH ABG pCO2 ABG pO2 ABG PO2/FiO2 Ratio ABG HCO3 ABG O2 Saturation ABG O2 Content ABG Base Excess VBG pH VBG pCO2 VBG pO2 VBG HCO3 A-a Gradient Oxyhemoglobin Carboxyhemoglobin Methemoglobin Reduced Hemoglobin Total Hemoglobin O2 Delivery Device O2 Liters/Min Minute Volume Vent Rate Vent Mode FiO2 Tidal Volume PEEP Peak Inspir Pressure Pressure Support Sodium 138 Potassium 3.4 Chloride 101 Carbon Dioxide 21 L Anion Gap 16 H BUN 21 H Creatinine 1.20 1.30 Estim Creat Clear Calc Not Reportable Not Reportable Estimated GFR 59 54 L Glucose 458 H POC Capillary Glucose Hemoglobin A1c Lactic Acid 5.5 H* Calcium 8.0 L Phosphorus Magnesium 1.9 Total Bilirubin 0.6 AST 320 H ALT 57 H Alkaline Phosphatase 199 H Total Creatine Kinase Troponin I NT-Pro-B Natriuret Pep Total Protein 6.0 L Albumin 3.4 L Triglycerides Cholesterol LDL Cholesterol Direct HDL Direct Procalcitonin TSH (Reflex) Free T4 Urine Color Yellow Urine Appearance Cloudy H Urine pH 5.5 Ur Specific [place] 1.032 Urine Protein 3+ H Urine Glucose (UA) 3+ H Urine Ketones Negative Ur Blood (Man) 3+ H Urine Nitrate Negative Urine Bilirubin Negative Urine Urobilinogen 1.0 Add Ur Microanalysis Reviewed Leukocyte Esterase Rfl Negative Urine RBC 6-10 H Urine WBC 6-10 H Ur Squamous Epith Cells Few Urine Bacteria None seen Urine Casts 11-20 Nasal MRSA (PCR) C. difficile (PCR) 01/08/24 01/08/24 01/08/24 01:40 00:25 00:24 WBC RBC Hgb Hct MCV MCH MCHC RDW Plt Count MPV Immature Gran % (Auto) Neut % (Auto) Lymph % (Auto) [place] % (Auto) Eos % (Auto) Baso % (Auto) Lymph # (Auto) [place] # (Auto) Eos # (Auto) Baso # (Auto) Abs Immat Gran (auto) Absolute Neuts (auto) Absolute Nucleated RBC Total Counted Neutrophils % (Manual) Band Neutrophils % Lymphocytes % (Manual) Monocytes % (Manual) Eosinophils % (Manual) Basophils % (Manual) Nucleated RBC % Not Reportable Abs Neuts (Manual) 18.28 H Abs Lymphs (Manual) 6.62 H Abs Monocytes (Manual) 0.79 Absolute Eos (Manual) 0.53 H Abs Basophils (Manual) 0.26 H Platelet Estimate Adequate % Immature Plt Fraction Cancelled Poikilocytosis 1+ Schistocytes None seen PT 14.7 INR 1.1 APTT 39.1 H Puncture Site ABG pH ABG pCO2 ABG pO2 ABG PO2/FiO2 Ratio ABG HCO3 ABG O2 Saturation ABG O2 Content ABG Base Excess VBG pH VBG pCO2 VBG pO2 VBG HCO3 A-a Gradient Oxyhemoglobin Carboxyhemoglobin Methemoglobin Reduced Hemoglobin Total Hemoglobin O2 Delivery Device O2 Liters/Min Minute Volume Vent Rate Vent Mode FiO2 Tidal Volume PEEP Peak Inspir Pressure Pressure Support Sodium Potassium Chloride Carbon Dioxide Anion Gap BUN Creatinine Estim Creat Clear Calc Estimated GFR Glucose POC Capillary Glucose Hemoglobin A1c Lactic Acid 8.6 H* Calcium Phosphorus Magnesium Total Bilirubin AST ALT Alkaline Phosphatase Total Creatine Kinase Troponin I 27.800 H* NT-Pro-B Natriuret Pep 1280 H Total Protein Albumin Triglycerides 298 H Cholesterol LDL Cholesterol Direct HDL Direct Procalcitonin TSH (Reflex) Free T4 Urine Color Urine Appearance Urine pH Ur Specific [place] Urine Protein Urine Glucose (UA) Urine Ketones Ur Blood (Man) Urine Nitrate Urine Bilirubin Urine Urobilinogen Add Ur Microanalysis Leukocyte Esterase Rfl Urine RBC Urine WBC Ur Squamous Epith Cells Urine Bacteria Urine Casts Nasal MRSA (PCR) C. difficile (PCR) 01/08/24 01/08/24 01/08/24 00:24 00: 00:24 WBC RBC Hgb Hct MCV MCH MCHC RDW Plt Count MPV Immature Gran % (Auto) Neut % (Auto) Lymph % (Auto) [place] % (Auto) Eos % (Auto) Baso % (Auto) Lymph # (Auto) [place] # (Auto) Eos # (Auto) Baso # (Auto) Abs Immat Gran (auto) Not Reportable Absolute Neuts (auto) Not Reportable Cancelled Absolute Nucleated RBC Not Reportable Cancelled Total Counted 100 Neutrophils % (Manual) 55 Band Neutrophils % 14 H Lymphocytes % (Manual) 25.0 Monocytes % (Manual) 3 Eosinophils % (Manual) 2 Basophils % (Manual) 1 Nucleated RBC % Cancelled Abs Neuts (Manual) Abs Lymphs (Manual) Abs Monocytes (Manual) Absolute Eos (Manual) Abs Basophils (Manual) Platelet Estimate % Immature Plt Fraction Poikilocytosis Schistocytes PT INR APTT Puncture Site ABG pH ABG pCO2 ABG pO2 ABG PO2/FiO2 Ratio ABG HCO3 ABG O2 Saturation ABG O2 Content ABG Base Excess VBG pH VBG pCO2 VBG pO2 VBG HCO3 A-a Gradient Oxyhemoglobin Carboxyhemoglobin Methemoglobin Reduced Hemoglobin Total Hemoglobin O2 Delivery Device O2 Liters/Min Minute Volume Vent Rate Vent Mode FiO2 Tidal Volume PEEP Peak Inspir Pressure Pressure Support Sodium Potassium Chloride Carbon Dioxide Anion Gap BUN Creatinine Estim Creat Clear Calc Estimated GFR Glucose POC Capillary Glucose Hemoglobin A1c Lactic Acid Calcium Phosphorus Magnesium Total Bilirubin AST ALT Alkaline Phosphatase Total Creatine Kinase Troponin I NT-Pro-B Natriuret Pep Total Protein Albumin Triglycerides Cholesterol LDL Cholesterol Direct HDL Direct Procalcitonin TSH (Reflex) Free T4 Urine Color Urine Appearance Urine pH Ur Specific [place] Urine Protein Urine Glucose (UA) Urine Ketones Ur Blood (Man) Urine Nitrate Urine Bilirubin Urine Urobilinogen Add Ur Microanalysis Leukocyte Esterase Rfl Urine RBC Urine WBC Ur Squamous Epith Cells Urine Bacteria Urine Casts Nasal MRSA (PCR) C. difficile (PCR) 01/08/24 01/08/24 01/08/24 00:24 00: 00:24 WBC RBC Hgb Hct MCV MCH MCHC RDW Plt Count MPV Immature Gran % (Auto) Neut % (Auto) Lymph % (Auto) [place] % (Auto) Eos % (Auto) Baso % (Auto) Lymph # (Auto) [place] # (Auto) Not Reportable Eos # (Auto) Not Reportable Cancelled Baso # (Auto) Not Reportable Cancelled Abs Immat Gran (auto) Cancelled Absolute Neuts (auto) Absolute Nucleated RBC Total Counted Neutrophils % (Manual) Band Neutrophils % Lymphocytes % (Manual) Monocytes % (Manual) Eosinophils % (Manual) Basophils % (Manual) Nucleated RBC % Abs Neuts (Manual) Abs Lymphs (Manual) Abs Monocytes (Manual) Absolute Eos (Manual) Abs Basophils (Manual) Platelet Estimate % Immature Plt Fraction Poikilocytosis Schistocytes PT INR APTT Puncture Site ABG pH ABG pCO2 ABG pO2 ABG PO2/FiO2 Ratio ABG HCO3 ABG O2 Saturation ABG O2 Content ABG Base Excess VBG pH VBG pCO2 VBG pO2 VBG HCO3 A-a Gradient Oxyhemoglobin Carboxyhemoglobin Methemoglobin Reduced Hemoglobin Total Hemoglobin O2 Delivery Device O2 Liters/Min Minute Volume Vent Rate Vent Mode FiO2 Tidal Volume PEEP Peak Inspir Pressure Pressure Support Sodium Potassium Chloride Carbon Dioxide Anion Gap BUN Creatinine Estim Creat Clear Calc Estimated GFR Glucose POC Capillary Glucose Hemoglobin A1c Lactic Acid Calcium Phosphorus Magnesium Total Bilirubin AST ALT Alkaline Phosphatase Total Creatine Kinase Troponin I NT-Pro-B Natriuret Pep Total Protein Albumin Triglycerides Cholesterol LDL Cholesterol Direct HDL Direct Procalcitonin TSH (Reflex) Free T4 Urine Color Urine Appearance Urine pH Ur Specific [place] Urine Protein Urine Glucose (UA) Urine Ketones Ur Blood (Man) Urine Nitrate Urine Bilirubin Urine Urobilinogen Add Ur Microanalysis Leukocyte Esterase Rfl Urine RBC Urine WBC Ur Squamous Epith Cells Urine Bacteria Urine Casts Nasal MRSA (PCR) C. difficile (PCR) 01/08/24 01/08/24 01/08/24 00:24 00:24 00:24 WBC RBC Hgb Hct MCV MCH MCHC RDW Plt Count MPV Immature Gran % (Auto) Neut % (Auto) Lymph % (Auto) [place] % (Auto) Eos % (Auto) Not Reportable Baso % (Auto) Not Reportable Cancelled Lymph # (Auto) Not Reportable Cancelled [place] # (Auto) Cancelled Eos # (Auto) Baso # (Auto) Abs Immat Gran (auto) Absolute Neuts (auto) Absolute Nucleated RBC Total Counted Neutrophils % (Manual) Band Neutrophils % Lymphocytes % (Manual) Monocytes % (Manual) Eosinophils % (Manual) Basophils % (Manual) Nucleated RBC % Abs Neuts (Manual) Abs Lymphs (Manual) Abs Monocytes (Manual) Absolute Eos (Manual) Abs Basophils (Manual) Platelet Estimate % Immature Plt Fraction Poikilocytosis Schistocytes PT INR APTT Puncture Site ABG pH ABG pCO2 ABG pO2 ABG PO2/FiO2 Ratio ABG HCO3 ABG O2 Saturation ABG O2 Content ABG Base Excess VBG pH VBG pCO2 VBG pO2 VBG HCO3 A-a Gradient Oxyhemoglobin Carboxyhemoglobin Methemoglobin Reduced Hemoglobin Total Hemoglobin O2 Delivery Device O2 Liters/Min Minute Volume Vent Rate Vent Mode FiO2 Tidal Volume PEEP Peak Inspir Pressure Pressure Support Sodium Potassium Chloride Carbon Dioxide Anion Gap BUN Creatinine Estim Creat Clear Calc Estimated GFR Glucose POC Capillary Glucose Hemoglobin A1c Lactic Acid Calcium Phosphorus Magnesium Total Bilirubin AST ALT Alkaline Phosphatase Total Creatine Kinase Troponin I NT-Pro-B Natriuret Pep Total Protein Albumin Triglycerides Cholesterol LDL Cholesterol Direct HDL Direct Procalcitonin TSH (Reflex) Free T4 Urine Color Urine Appearance Urine pH Ur Specific [place] Urine Protein Urine Glucose (UA) Urine Ketones Ur Blood (Man) Urine Nitrate Urine Bilirubin Urine Urobilinogen Add Ur Microanalysis Leukocyte Esterase Rfl Urine RBC Urine WBC Ur Squamous Epith Cells Urine Bacteria Urine Casts Nasal MRSA (PCR) C. difficile (PCR) 01/08/24 01/08/24 01/08/24 00:24 00:24 00:24 WBC RBC Hgb Hct MCV MCH MCHC RDW Plt Count MPV Immature Gran % (Auto) Neut % (Auto) Not Reportable Lymph % (Auto) Not Reportable Cancelled [place] % (Auto) Not Reportable Cancelled Eos % (Auto) Cancelled Baso % (Auto) Lymph # (Auto) [place] # (Auto) Eos # (Auto) Baso # (Auto) Abs Immat Gran (auto) Absolute Neuts (auto) Absolute Nucleated RBC Total Counted Neutrophils % (Manual) Band Neutrophils % Lymphocytes % (Manual) Monocytes % (Manual) Eosinophils % (Manual) Basophils % (Manual) Nucleated RBC % Abs Neuts (Manual) Abs Lymphs (Manual) Abs Monocytes (Manual) Absolute Eos (Manual) Abs Basophils (Manual) Platelet Estimate % Immature Plt Fraction Poikilocytosis Schistocytes PT INR APTT Puncture Site ABG pH ABG pCO2 ABG pO2 ABG PO2/FiO2 Ratio ABG HCO3 ABG O2 Saturation ABG O2 Content ABG Base Excess VBG pH VBG pCO2 VBG pO2 VBG HCO3 A-a Gradient Oxyhemoglobin Carboxyhemoglobin Methemoglobin Reduced Hemoglobin Total Hemoglobin O2 Delivery Device O2 Liters/Min Minute Volume Vent Rate Vent Mode FiO2 Tidal Volume PEEP Peak Inspir Pressure Pressure Support Sodium Potassium Chloride Carbon Dioxide Anion Gap BUN Creatinine Estim Creat Clear Calc Estimated GFR Glucose POC Capillary Glucose Hemoglobin A1c Lactic Acid Calcium Phosphorus Magnesium Total Bilirubin AST ALT Alkaline Phosphatase Total Creatine Kinase Troponin I NT-Pro-B Natriuret Pep Total Protein Albumin Triglycerides Cholesterol LDL Cholesterol Direct HDL Direct Procalcitonin TSH (Reflex) Free T4 Urine Color Urine Appearance Urine pH Ur Specific [place] Urine Protein Urine Glucose (UA) Urine Ketones Ur Blood (Man) Urine Nitrate Urine Bilirubin Urine Urobilinogen Add Ur Microanalysis Leukocyte Esterase Rfl Urine RBC Urine WBC Ur Squamous Epith Cells Urine Bacteria Urine Casts Nasal MRSA (PCR) C. difficile (PCR) 01/08/24 01/08/24 01/08/24:24 00::24 WBC RBC Hgb Hct MCV MCH MCHC RDW Plt Count 292 MPV 10.1 Cancelled Immature Gran % (Auto) Not Reportable Cancelled Neut % (Auto) Cancelled Lymph % (Auto) [place] % (Auto) Eos % (Auto) Baso % (Auto) Lymph # (Auto) [place] # (Auto) Eos # (Auto) Baso # (Auto) Abs Immat Gran (auto) Absolute Neuts (auto) Absolute Nucleated RBC Total Counted Neutrophils % (Manual) Band Neutrophils % Lymphocytes % (Manual) Monocytes % (Manual) Eosinophils % (Manual) Basophils % (Manual) Nucleated RBC % Abs Neuts (Manual) Abs Lymphs (Manual) Abs Monocytes (Manual) Absolute Eos (Manual) Abs Basophils (Manual) Platelet Estimate % Immature Plt Fraction Poikilocytosis Schistocytes PT INR APTT Puncture Site ABG pH ABG pCO2 ABG pO2 ABG PO2/FiO2 Ratio ABG HCO3 ABG O2 Saturation ABG O2 Content ABG Base Excess VBG pH VBG pCO2 VBG pO2 VBG HCO3 A-a Gradient Oxyhemoglobin Carboxyhemoglobin Methemoglobin Reduced Hemoglobin Total Hemoglobin O2 Delivery Device O2 Liters/Min Minute Volume Vent Rate Vent Mode FiO2 Tidal Volume PEEP Peak Inspir Pressure Pressure Support Sodium Potassium Chloride Carbon Dioxide Anion Gap BUN Creatinine Estim Creat Clear Calc Estimated GFR Glucose POC Capillary Glucose Hemoglobin A1c Lactic Acid Calcium Phosphorus Magnesium Total Bilirubin AST ALT Alkaline Phosphatase Total Creatine Kinase Troponin I NT-Pro-B Natriuret Pep Total Protein Albumin Triglycerides Cholesterol LDL Cholesterol Direct HDL Direct Procalcitonin TSH (Reflex) Free T4 Urine Color Urine Appearance Urine pH Ur Specific [place] Urine Protein Urine Glucose (UA) Urine Ketones Ur Blood (Man) Urine Nitrate Urine Bilirubin Urine Urobilinogen Add Ur Microanalysis Leukocyte Esterase Rfl Urine RBC Urine WBC Ur Squamous Epith Cells Urine Bacteria Urine Casts Nasal MRSA (PCR) C. difficile (PCR) 01/08/24 01/08/24 01/08/24 00:24 00:24 00:24 WBC RBC Hgb Hct MCV MCH 28.2 MCHC 31.6 L Cancelled RDW 14.8 H Cancelled Plt Count Cancelled MPV Immature Gran % (Auto) Neut % (Auto) Lymph % (Auto) [place] % (Auto) Eos % (Auto) Baso % (Auto) Lymph # (Auto) [place] # (Auto) Eos # (Auto) Baso # (Auto) Abs Immat Gran (auto) Absolute Neuts (auto) Absolute Nucleated RBC Total Counted Neutrophils % (Manual) Band Neutrophils % Lymphocytes % (Manual) Monocytes % (Manual) Eosinophils % (Manual) Basophils % (Manual) Nucleated RBC % Abs Neuts (Manual) Abs Lymphs (Manual) Abs Monocytes (Manual) Absolute Eos (Manual) Abs Basophils (Manual) Platelet Estimate % Immature Plt Fraction Poikilocytosis Schistocytes PT INR APTT Puncture Site ABG pH ABG pCO2 ABG pO2 ABG PO2/FiO2 Ratio ABG HCO3 ABG O2 Saturation ABG O2 Content ABG Base Excess VBG pH VBG pCO2 VBG pO2 VBG HCO3 A-a Gradient Oxyhemoglobin Carboxyhemoglobin Methemoglobin Reduced Hemoglobin Total Hemoglobin O2 Delivery Device O2 Liters/Min Minute Volume Vent Rate Vent Mode FiO2 Tidal Volume PEEP Peak Inspir Pressure Pressure Support Sodium Potassium Chloride Carbon Dioxide Anion Gap BUN Creatinine Estim Creat Clear Calc Estimated GFR Glucose POC Capillary Glucose Hemoglobin A1c Lactic Acid Calcium Phosphorus Magnesium Total Bilirubin AST ALT Alkaline Phosphatase Total Creatine Kinase Troponin I NT-Pro-B Natriuret Pep Total Protein Albumin Triglycerides Cholesterol LDL Cholesterol Direct HDL Direct Procalcitonin TSH (Reflex) Free T4 Urine Color Urine Appearance Urine pH Ur Specific [place] Urine Protein Urine Glucose (UA) Urine Ketones Ur Blood (Man) Urine Nitrate Urine Bilirubin Urine Urobilinogen Add Ur Microanalysis Leukocyte Esterase Rfl Urine RBC Urine WBC Ur Squamous Epith Cells Urine Bacteria Urine Casts Nasal MRSA (PCR) C. difficile (PCR) 11/01/08/24 01/08/24 00:24 00:24 00:24 WBC RBC Hgb 18.7 H Hct 59.2 H Cancelled MCV 89.2 Cancelled MCH Cancelled MCHC RDW Plt Count MPV Immature Gran % (Auto) Neut % (Auto) Lymph % (Auto) [place] % (Auto) Eos % (Auto) Baso % (Auto) Lymph # (Auto) [place] # (Auto) Eos # (Auto) Baso # (Auto) Abs Immat Gran (auto) Absolute Neuts (auto) Absolute Nucleated RBC Total Counted Neutrophils % (Manual) Band Neutrophils % Lymphocytes % (Manual) Monocytes % (Manual) Eosinophils % (Manual) Basophils % (Manual) Nucleated RBC % Abs Neuts (Manual) Abs Lymphs (Manual) Abs Monocytes (Manual) Absolute Eos (Manual) Abs Basophils (Manual) Platelet Estimate % Immature Plt Fraction Poikilocytosis Schistocytes PT INR APTT Puncture Site ABG pH ABG pCO2 ABG pO2 ABG PO2/FiO2 Ratio ABG HCO3 ABG O2 Saturation ABG O2 Content ABG Base Excess VBG pH VBG pCO2 VBG pO2 VBG HCO3 A-a Gradient Oxyhemoglobin Carboxyhemoglobin Methemoglobin Reduced Hemoglobin Total Hemoglobin O2 Delivery Device O2 Liters/Min Minute Volume Vent Rate Vent Mode FiO2 Tidal Volume PEEP Peak Inspir Pressure Pressure Support Sodium Potassium Chloride Carbon Dioxide Anion Gap BUN Creatinine Estim Creat Clear Calc Estimated GFR Glucose POC Capillary Glucose Hemoglobin A1c Lactic Acid Calcium Phosphorus Magnesium Total Bilirubin AST ALT Alkaline Phosphatase Total Creatine Kinase Troponin I NT-Pro-B Natriuret Pep Total Protein Albumin Triglycerides Cholesterol LDL Cholesterol Direct HDL Direct Procalcitonin TSH (Reflex) Free T4 Urine Color Urine Appearance Urine pH Ur Specific [place] Urine Protein Urine Glucose (UA) Urine Ketones Ur Blood (Man) Urine Nitrate Urine Bilirubin Urine Urobilinogen Add Ur Microanalysis Leukocyte Esterase Rfl Urine RBC Urine WBC Ur Squamous Epith Cells Urine Bacteria Urine Casts Nasal MRSA (PCR) C. difficile (PCR) 01/08/24 01/08/24 01/08/24 00: 00:24 00:24 WBC 26.5 H Cancelled RBC 6.64 H Cancelled Hgb Cancelled Hct MCV MCH MCHC RDW Plt Count MPV Immature Gran % (Auto) Neut % (Auto) Lymph % (Auto) [place] % (Auto) Eos % (Auto) Baso % (Auto) Lymph # (Auto) [place] # (Auto) Eos # (Auto) Baso # (Auto) Abs Immat Gran (auto) Absolute Neuts (auto) Absolute Nucleated RBC Total Counted Neutrophils % (Manual) Band Neutrophils % Lymphocytes % (Manual) Monocytes % (Manual) Eosinophils % (Manual) Basophils % (Manual) Nucleated RBC % Abs Neuts (Manual) Abs Lymphs (Manual) Abs Monocytes (Manual) Absolute Eos (Manual) Abs Basophils (Manual) Platelet Estimate % Immature Plt Fraction Poikilocytosis Schistocytes PT INR APTT Puncture Site ABG pH ABG pCO2 ABG pO2 ABG PO2/FiO2 Ratio ABG HCO3 ABG O2 Saturation ABG O2 Content ABG Base Excess VBG pH VBG pCO2 VBG pO2 VBG HCO3 A-a Gradient Oxyhemoglobin Carboxyhemoglobin Methemoglobin Reduced Hemoglobin Total Hemoglobin O2 Delivery Device O2 Liters/Min Minute Volume Vent Rate Vent Mode FiO2 Tidal Volume PEEP Peak Inspir Pressure Pressure Support Sodium Potassium Chloride Carbon Dioxide Anion Gap BUN Creatinine Estim Creat Clear Calc Estimated GFR Glucose POC Capillary Glucose Hemoglobin A1c Lactic Acid Calcium Phosphorus Magnesium Total Bilirubin AST ALT Alkaline Phosphatase Total Creatine Kinase Troponin I NT-Pro-B Natriuret Pep Total Protein Albumin Triglycerides Cholesterol LDL Cholesterol Direct HDL Direct Procalcitonin TSH (Reflex) Free T4 Urine Color Urine Appearance Urine pH Ur Specific [place] Urine Protein Urine Glucose (UA) Urine Ketones Ur Blood (Man) Urine Nitrate Urine Bilirubin Urine Urobilinogen Add Ur Microanalysis Leukocyte Esterase Rfl Urine RBC Urine WBC Ur Squamous Epith Cells Urine Bacteria Urine Casts Nasal MRSA (PCR) C. difficile (PCR) Imaging Radiologist's impression: ITS Impressions Chest X-Ray 01/07/24 23:39 IMPRESSION: 1. Endotracheal tube tip at the thoracic inlet, 12.7 cm from the shabnam. 2. Diffuse lung disease, likely moderate pulmonary edema. 3. Cardiomegaly. Abdomen X-Ray 01/08/24 05:34 Impression: NG tube in satisfactory position. Chest X-Ray 01/08/24 05:34 Impression: Support tubes, as above. Moderate to advanced pulmonary edema pattern with central congestive change. Chest CTA 01/08/24 06:12 Impression: No evidence of pulmonary embolus, aortic dissection, or aortic aneurysm. Small bilateral pleural effusions with extensive presumed bibasilar dependent atelectasis, versus pneumonia. Patchy airspace consolidation and ground glass opacity in the aerated lungs, which could represent pulmonary edema versus pneumonia. Head CT 01/08/24 06:41 Impression: No significant abnormality seen. DS: Summary Hospital Course Hospital Course: Shree Chapman is a 78 year old male who presented to the ER yesterday with shortness of breath and respiratory distress and chest pain. He also had an episode of nausea and vomiting. EMS was called at home. When EMS arrived patient was tachycardic and was in respiratory distress was placed on CPAP and brought to the hospital. EKG was suggestive of STEMI. On arrival to the ED patient was intubated. During intubation patient lost the balls and received 2 rounds of CPR. Patient also had 1 episode of V-tach for which he was shocked and received 1 in round of CPR. Patient has been more responsive since then with purposeful new movement. Patient was started on heparin drip and amiodarone infusion was admitted to ICU for further treatment. Laboratory workup revealed WBC 17 K hemoglobin of 18 creatinine 1.7. Chest x-ray with diffuse lung disease likely moderate pulmonary edema with cardiomegaly. Chest CT was done which showed no PE aortic dissection or aortic aneurysm. Small bilateral pleural effusion with extensive presumed bibasilar dependent atelectasis versus pneumonia. Patchy airspace consolidation and ground-glass opacity in the aerated lungs which could represent pulmonary edema versus pneumonia. CT head was negative for any acute abnormality His troponin was also elevated lung with EKG not diagnostic for ST-elevation GA. patient has been started on heparin drip. He has a complicated history of coronary artery disease with multiple PCI in the past. His alert food runner is with [facility] was contacted and recommended transfer to [facility] for further treatment. He was loaded with 3 mg of Plavix along with aspirin levels admission to the patient. Echo was performed which is pending at the time of transfer. Has also treated for possible sepsis related to pneumonia/aspiration pneumonia with broad-spectrum antibiotics. Cardiac arrest likely due to respiratory failure. Also on amiodarone infusion HUMAIRA with creatinine of 1.7 on admission baseline creatinine of 1.3. Continue to monitor Hypothyroidism Type 2 diabetes mellitus on insulin drip Pulmonary edema DVT prophylaxis on heparin drip Code status full code Time Spent with Patient Time attestation: Total time spent providing and/or coordinating discharge services: 40 minutes DS: Admitting Diagnosis Discharge Date 01/08/2024 Admitting Diagnosis Respiratory failure/cardiac arrest/non-STEMI Discharge Plan Discharge Attending physician on discharge: Gray Sanchez Consulting providers: Shona Sesay Discharging Clinician: Gray Sanchez Anticipated Discharge Date/Time: 01/08/24 15:09 Patient Disposition: Acute Care Hospital Activity: other - see discharge instructions Diet: NPO Patient Instructions: Clopidogrel (By mouth), Pain Management (DC) Discharge Medications: Continued aspirin [Children's Aspirin] 81 mg Tablet,Chewable 81 mg PO DAILY@0800 Qty: 30 12RF nitroglycerin 0.4 mg tablet, sublingual 0.4 mg sublingual Q5M PRN (Reason: chest pain) Qty: 25 3RF Rx Instructions: until response; do not exceed 3 doses per episode metoprolol succinate 100 mg tablet extended release 24 hr 100 mg PO DAILY Qty: 30 0RF clopidogrel 75 mg tablet 75 mg PO DAILY Qty: 30 0RF spironolactone 25 mg tablet 25 mg PO DAILY Qty: 30 0RF levothyroxine 50 mcg Capsule 50 mcg PO DAILY Qty: 30 0RF isosorbide mononitrate 30 mg tablet extended release 24 hr PO rosuvastatin 40 mg tablet 40 mg PO DAILY Trulicity 3 mg/0.5 mL pen injector 3 mg SUBCUT WEEKLY Rx Instructions: administer on Sunday glimepiride 2 mg tablet 2 mg PO BID ezetimibe 10 mg tablet 10 mg PO HS Farxiga 10 mg tablet 10 mg PO DAILY metformin 500 mg tablet 1,000 mg PO BID Date of admission: 01/08/24 05:26 Primary Care Provider: UNKNOWN,DOCTOR Admitting Provider: Nate Mclain V. Attending physician on admission: Nate Mclain V. Condition: Critical Hospitalist MIPS Advance Care Plan I have confirmed that the patient's Advanced Care Plan is present, code status is documented, or surrogate decision maker is listed in patient medical record.: Yes Medication Reconciliation I have utilized all available resources to obtain, update and review the patients current medications (includes all prescriptions, OTC, herbals, cannabis, and nutritional supplements).: Yes Heart Failure (Exclusion) Patient has history of Heart Transplant or Left Ventricular Assistive Device?: No IF YES, STOP HERE Heart Failure (Qualifier) Patient has current or prior documentation of LVEF less than or equal to 40%, or mod/servere depressed LVSF?: No IF NO, STOP HERE
--- NOTE | 2024-01-08 15:15 | P.HP_ITS ---
H&P: HPI History of Present Illness Date/Time: 01/08/24 15:15 Chief Complaint: Cardiopulmonary arrest Narrative: Shree Chapman is a 78 year old male who presented to the ER yesterday with shortness of breath and respiratory distress and chest pain. He also had an episode of nausea and vomiting. EMS was called at home. When EMS arrived patient was tachycardic and was in respiratory distress was placed on CPAP and brought to the hospital. EKG was suggestive of STEMI. On arrival to the ED patient was intubated. During intubation patient lost the balls and received 2 rounds of CPR. Patient also had 1 episode of V-tach for which he was shocked and received 1 in round of CPR. Patient has been more responsive since then with purposeful new movement. Patient was started on heparin drip and amiodaron e infusion was admitted to ICU for further treatment. 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 Type 2 diabetes mellitus Surgical History Surgical History History of cardiac catheterization History of coronary artery stent placement 06/27/2020: Stents to the diagonal branch, mid LAD, and ostial PDA/distal RCA at [facility]. 01/21/2020: Stent to the LAD per Dr. Juarez. Family History Family History Mother Diabetes mellitus Hypertension Father , Lung carcinoma Carcinoma, lung Sibling Kidney failure Heart attack Afib Social History Social History Social History: Surrogate medical decision maker: Farheen Person, significant other. Code status: Full code. Smoking status: Never smoker Second hand tobacco smoke exposure: Yes Alcohol intake: never Substance use: never Do You Feel Safe in your Home?: Yes Lack of Transportation: No Lack of Food: Never True Current Housing: I Have Housing Concerned About Future Housing: No Difficulty Paying Gas/Electric Bills: No Difficulty Paying for Meds: No Currently Unemployed: No Education: Bachelor's Degree Difficulty w/ Childcare or Family Care: No Additional living arrangements comments: Lives in [place]. Has 2 children. 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 Spiritual care concerns: No Meds Home Medications and Allergies Home Medications Medication Instructions Recorded Confirmed Type aspirin 81 mg chewable tablet 81 mg PO DAILY@0800 #30 tabs 01/22/20 01/08/24 Rx (Children's Aspirin) clopidogrel 75 mg tablet 75 mg PO DAILY #30 tabs 01/22/20 01/08/24 Rx levothyroxine 50 mcg capsule 50 mcg PO DAILY #30 caps 01/22/20 02/02/23 Rx metoprolol succinate 100 mg 100 mg PO DAILY #30 tabs 01/22/20 01/08/24 Rx tablet,extended release 24 hr nitroglycerin 0.4 mg sublingual 0.4 mg sublingual Q5M PRN chest 01/22/20 02/02/23 Rx tablet pain #25 tabs spironolactone 25 mg tablet 25 mg PO DAILY #30 tabs 01/22/20 02/02/23 Rx dapagliflozin propanediol 10 mg 10 mg PO DAILY 02/02/23 02/02/23 History tablet (Farxiga) ezetimibe 10 mg tablet 10 mg PO HS 02/02/23 02/02/23 History glimepiride 2 mg tablet 2 mg PO BID 02/02/23 01/08/24 History metformin 500 mg tablet 1,000 mg PO BID 02/02/23 01/08/24 History dulaglutide 3 mg/0.5 mL 3 mg subcut WEEKLY 01/08/24 01/08/24 History subcutaneous pen injector (Trulicity) isosorbide mononitrate 30 mg mg PO 01/08/24 History tablet,extended release 24 hr rosuvastatin 40 mg tablet 40 mg PO DAILY 01/08/24 01/08/24 History Allergies Allergy/AdvReac Type Severity Reaction Status Date / Time No Known Allergies Allergy Verified 01/08/24 06:02 Vital Signs Vital Signs - 24 hr 01/07/24 23:57 01/08/24 00:12 01/08/24 00:18 Temperature Pulse Rate 109 H 114 H 108 H Respiratory Rate 32 H 29 H Blood Pressure 148/118 H 208/127 H Pulse Oximetry 97 Oxygen Delivery Fraction of Inspired Oxygen 01/07/24 22:49 01/07/24 23:00 01/08/24 01:00 Temperature Pulse Rate 160 H 106 H 106 H Respiratory Rate 40 H Blood Pressure 150/120 H Pulse Oximetry 80 L 95 96 Oxygen Delivery Room Air Mechanical Ventilation Mechanical Ventilation Fraction of Inspired Oxygen 100 100 01/08/24 00:30 01/08/24 01:30 01/08/24 01:00 Temperature Pulse Rate 107 H 109 H 107 H Respiratory Rate 28 H 30 H 30 H Blood Pressure 189/114 H 172/105 H 203/118 H Pulse Oximetry 98 97 96 Oxygen Delivery Fraction of Inspired Oxygen 01/08/24 02:00 01/08/24 03:40 01/08/24 02:00 Temperature Pulse Rate 110 H 103 H 110 H Respiratory Rate 32 H 29 H Blood Pressure 192/117 H Pulse Oximetry 99 95 Oxygen Delivery Mechanical Ventilation Fraction of Inspired Oxygen 100 01/08/24 04:36 01/08/24 08:07 01/08/24 08:12 Temperature Pulse Rate 99 88 92 Respiratory Rate 28 H 30 H Blood Pressure Pulse Oximetry 98 Oxygen Delivery Mechanical Ventilation Fraction of Inspired Oxygen 60 01/08/24 08:00 01/08/24 10:00 01/08/24 07:00 Temperature 100.6 F H Pulse Rate 91 79 98 Respiratory Rate 30 H Blood Pressure 150/101 H Pulse Oximetry 98 Oxygen Delivery Fraction of Inspired Oxygen 01/08/24 08:00 01/08/24 09:00 01/08/24 10:00 Temperature 101.4 F H 101.7 F H 101.7 F H Pulse Rate 91 90 79 Respiratory Rate 29 H 32 H 27 H Blood Pressure 83/67 L 89/55 L 101/60 Pulse Oximetry 97 98 100 Oxygen Delivery Fraction of Inspired Oxygen 01/08/24 05:58 01/08/24 08:30 01/08/24 08:30 Temperature 101.5 F H Pulse Rate 99 99 99 Respiratory Rate 32 H Blood Pressure 150/101 H 98/78 L Pulse Oximetry 98 Oxygen Delivery Fraction of Inspired Oxygen 01/08/24 06:00 01/08/24 12:00 01/08/24 12:00 Temperature 101.6 F H Pulse Rate 99 93 93 Respiratory Rate 22 H Blood Pressure 150/101 H 102/69 Pulse Oximetry 99 Oxygen Delivery Fraction of Inspired Oxygen 01/08/24 12:00 01/08/24 11:27 01/08/24 08:00 Temperature Pulse Rate 93 95 91 Respiratory Rate 22 H 29 H Blood Pressure Pulse Oximetry 99 98 98 Oxygen Delivery Mechanical Ventilation Mechanical Ventilation Mechanical Ventilation Fraction of Inspired Oxygen 60 60 01/08/24 12:00 01/08/24 13:13 01/08/24 13:27 Temperature 101.7 F H Pulse Rate 94 93 Respiratory Rate 26 H 21 H Blood Pressure Pulse Oximetry 99 Oxygen Delivery Mechanical Ventilation Fraction of Inspired Oxygen 60 01/08/24 14:00 01/08/24 14:00 01/08/24 14:00 Temperature 101.5 F H 101.7 F H Pulse Rate 94 94 Respiratory Rate 24 H Blood Pressure 91/64 L Pulse Oximetry 99 Oxygen Delivery Fraction of Inspired Oxygen 01/08/24 07:30 01/08/24 09:30 01/08/24 11:30 Temperature Pulse Rate 90 79 95 Respiratory Rate Blood Pressure 96/54 L 127/74 119/73 Pulse Oximetry Oxygen Delivery Fraction of Inspired Oxygen 01/08/24 13:30 01/08/24 07:00 01/08/24 07:15 Temperature Pulse Rate 93 98 93 Respiratory Rate 30 H 30 H Blood Pressure 93/64 L Pulse Oximetry Oxygen Delivery Fraction of Inspired Oxygen 01/08/24 07:30 01/08/24 07:45 01/08/24 07:55 Temperature Pulse Rate 90 88 92 Respiratory Rate 30 H 29 H 29 H Blood Pressure Pulse Oximetry Oxygen Delivery Fraction of Inspired Oxygen 01/08/24 14:00 Temperature Pulse Rate 94 Respiratory Rate 24 H Blood Pressure Pulse Oximetry Oxygen Delivery Fraction of Inspired Oxygen Exam Narrative: General: Pt is sedated, intubated and on mechanical ventilation Lungs/Chest: Trachea central Coarse BS B/L, bibasilar crackles Cardiac: RRR. Normal S1 S2. No murmurs Circulation: Pedal pulses are are weak but palpable and and symmetrical. Abdomen: Decreased bowel sounds. Obese. Soft. NT. ND. Extremities: No clubbing, cyanosis Warm. Patient has bilateral mild pitting edema : Jay in place Neurologic: Awake and follow some commands. H&P: Results Labs Labs: Short CBC 01/08/24 01/08/24 01/08/24 Range/Units 00:24 00:24 00:24 WBC Cancelled 26.5 H Hgb Cancelled 18.7 H Hct Cancelled Plt Count 01/08/24 01/08/24 01/08/24 Range/Units 00:24 00:24 08:12 WBC 17.0 H Hgb 18.0 Hct 59.2 H 57.2 H Plt Count Cancelled 292 269 BMP 01/08/24 01/08/24 01/08/24 02:50 03:56 08:12 Sodium 138 138 Potassium 3.4 3.8 Chloride 101 103 Carbon Dioxide 21 L 21 L BUN 21 H 24 H Creatinine 1.30 1.20 1.70 H Glucose 458 H 402 H Calcium 8.0 L 8.1 L 01/08/24 12:31 Sodium 140 Potassium 3.7 Chloride 109 H Carbon Dioxide 23 BUN 27 H Creatinine 1.60 H Glucose 315 H Calcium 7.7 L Cardiac Enzymes 01/08/24 01/08/24 01/08/24 Range/Units 01:40 08:12 09:01 Total Creatine Kinase (55-170) U/L Troponin I 27.800 H* 79.900 H* D 77.600 H* (0.000-0.034) ng/mL 01/08/24 Range/Units 12:31 Total Creatine Kinase 720 H (55-170) U/L Troponin I (0.000-0.034) ng/mL Liver Function 01/08/24 01/08/24 01/08/24 Range/Units 03:56 08:12 12:31 Total Bilirubin 0.6 0.5 0.5 (0.2-1.3) mg/dL AST 320 H 361 H 256 H (17-59) U/L ALT 57 H 66 H 63 H (6-50) U/L Alkaline Phosphatase 199 H 146 H 107 (38-126) U/L Albumin 3.4 L 3.7 3.3 L (3.5-5.1) g/dL Urine 01/08/24 Range/Units 02:44 Urine Color Yellow (Yellow) Urine Appearance Cloudy H (Clear) Urine pH 5.5 (5.0-9.0) Ur Specific [place] 1.032 (1.001-1.035) Urine Protein 3+ H (Negative) mg/dL Urine Glucose (UA) 3+ H (Negative) mg/dL Assessment and Plan Assessment and plan (1) Acute respiratory failure: Code(s): J96.00 - Acute respiratory failure, unspecified whether with hypoxia or hypercapnia Status: Acute (2) Non-ST elevation [place] (NSTEMI): Code(s): I21.4 - Non-ST elevation (NSTEMI) myocardial infarction Status: Acute (3) Sepsis: Code(s): A41.9 - Sepsis, unspecified organism Status: Acute (4) Cardiac arrest: Code(s): I46.9 - Cardiac arrest, cause unspecified Status: Acute (5) HUMAIRA (acute kidney injury): Code(s): N17.9 - Acute kidney failure, unspecified Status: Acute (6) Hypothyroidism: Code(s): E03.9 - Hypothyroidism, unspecified Status: Acute (7) Coronary artery disease: Code(s): I25.10 - Atherosclerotic heart disease of [place] coronary artery without angina pectoris Status: Acute (8) Type 2 diabetes mellitus: Code(s): E11.9 - Type 2 diabetes mellitus without complications Status: Acute (9) Pulmonary edema: Qualifiers: Chronicity: acute Qualified Code(s): J81.0 - Acute pulmonary edema Code(s): J81.1 - Chronic pulmonary edema Status: Acute (10) Congestive heart failure: Qualifiers: Heart failure chronicity: acute Code(s): I50.9 - Heart failure, unspecified Status: Acute (11) V-tach: Code(s): I47.20 - Ventricular tachycardia, unspecified Status: Acute Plan Shree Chapman is a 78 year old male who presented to the ER yesterday with shortness of breath and respiratory distress and chest pain. He also had an episode of nausea and vomiting. EMS was called at home. When EMS arrived patient was tachycardic and was in respiratory distress was placed on CPAP and brought to the hospital. EKG was suggestive of STEMI. On arrival to the ED patient was intubated. During intubation patient lost the balls and received 2 rounds of CPR. Patient also had 1 episode of V-tach for which he was shocked and received 1 in round of CPR. Patient has been more responsive since then with purposeful new movement. Patient was started on heparin drip and amiodarone infusion was admitted to ICU for further treatment. Laboratory workup revealed WBC 17 K hemoglobin of 18 creatinine 1.7. Chest x- ray with diffuse lung disease likely moderate pulmonary edema with cardiomegaly. Chest CT was done which showed no PE aortic dissection or aortic aneurysm. Small bilateral pleural effusion with extensive presumed bibasilar dependent atelectasis versus pneumonia. Patchy airspace consolidation and ground-glass opacity in the aerated lungs which could represent pulmonary edema versus pneumonia. CT head was negative for any acute abnormality His troponin was also elevated lung with EKG not diagnostic for ST-elevation [place]. patient has been started on heparin drip. He has a complicated history of coronary artery disease with multiple PCI in the past. His alert service manager is with [facility] was contacted and recommended transfer to [facility] for further treatment. He was loaded with 3 mg of Plavix along with aspirin levels admission to the patient. Echo was performed which is pending at the time of transfer. Has also treated for possible sepsis related to pneumonia/aspiration pneumonia with broad-spectrum antibiotics. Cardiac arrest likely due to respiratory failure. Also on amiodarone infusion HUMAIRA with creatinine of 1.7 on admission baseline creatinine of 1.3. Continue to monitor Hypothyroidism Type 2 diabetes mellitus on insulin drip Pulmonary edema DVT prophylaxis on heparin drip Code status full code Hospitalist [facility] Advance Care Plan I have confirmed that the patient's Advanced Care Plan is present, code status is documented, or surrogate decision maker is listed in patient medical record.: Yes Medication Reconciliation I have utilized all available resources to obtain, update and review the patients current medications (includes all prescriptions, OTC, herbals, cannabis, and nutritional supplements).: Yes
--- NOTE | 2024-01-08 15:17 | P.TS_ITS ---
Transfer Discharge Sum: Prov Provider Date of admission: 01/08/24 05:26 Primary care physician: UNKNOWN,DOCTOR Admitting clinician: Nate Mclain MD Consults: 01/08/24 05:28 Consult to Physician Routine Comment: Consulting Provider: Shona Sesay Reason for consultation: Cardiopulmonary arrest, aspiration pneumonia, intubation, vent management Has provider been notified: Yes DS: Admitting Diagnosis Discharge Date 01/08/24 Admitting Diagnosis Cardiopulmonary arrest/respiratory failure DS: Discharge Diagnosis Discharge Diagnosis (1) Acute respiratory failure: Code(s): J96.00 - Acute respiratory failure, unspecified whether with hypoxia or hypercapnia Status: Acute (2) Non-ST elevation LA (NSTEMI): Code(s): I21.4 - Non-ST elevation (NSTEMI) myocardial infarction Status: Acute (3) Sepsis: Code(s): A41.9 - Sepsis, unspecified organism Status: Acute (4) Cardiac arrest: Code(s): I46.9 - Cardiac arrest, cause unspecified Status: Acute (5) HUMAIRA (acute kidney injury): Code(s): N17.9 - Acute kidney failure, unspecified Status: Acute (6) Hypothyroidism: Code(s): E03.9 - Hypothyroidism, unspecified Status: Acute (7) Coronary artery disease: Code(s): I25.10 - Atherosclerotic heart disease of [place] coronary artery without angina pectoris Status: Acute (8) Type 2 diabetes mellitus: Code(s): E11.9 - Type 2 diabetes mellitus without complications Status: Acute (9) Pulmonary edema: Qualifiers: Chronicity: acute Qualified Code(s): J81.0 - Acute pulmonary edema Code(s): J81.1 - Chronic pulmonary edema Status: Acute (10) Congestive heart failure: Qualifiers: Heart failure chronicity: acute Code(s): I50.9 - Heart failure, unspecified Status: Acute (11) V-tach: Code(s): I47.20 - Ventricular tachycardia, unspecified Status: Acute Transfer Discharge Sum: Med Medications Active and Home Medications: Home Medications aspirin 81 mg chewable tablet (Children's Aspirin) 81 mg PO DAILY@0800 #30 tabs 01/22/20 [Rx Confirmed 01/08/24] clopidogrel 75 mg tablet 75 mg PO DAILY #30 tabs 01/22/20 [Rx Confirmed 01/08/24] levothyroxine 50 mcg capsule 50 mcg PO DAILY #30 caps 01/22/20 [Rx Confirmed 02/02/23] metoprolol succinate 100 mg tablet,extended release 24 hr 100 mg PO DAILY #30 tabs 01/22/20 [Rx Confirmed 01/08/24] nitroglycerin 0.4 mg sublingual tablet 0.4 mg sublingual Q5M PRN chest pain #25 tabs 01/22/20 [Rx Confirmed 02/02/23] spironolactone 25 mg tablet 25 mg PO DAILY #30 tabs 01/22/20 [Rx Confirmed 02/02/23] dapagliflozin propanediol 10 mg tablet (Farxiga) 10 mg PO DAILY 02/02/23 [His tory Confirmed 02/02/23] ezetimibe 10 mg tablet 10 mg PO HS 02/02/23 [History Confirmed 02/02/23] glimepiride 2 mg tablet 2 mg PO BID 02/02/23 [History Confirmed 01/08/24] metformin 500 mg tablet 1,000 mg PO BID 02/02/23 [History Confirmed 01/08/24] dulaglutide 3 mg/0.5 mL subcutaneous pen injector (Trulicity) 3 mg subcut WEEKLY 01/08/24 [History Confirmed 01/08/24] isosorbide mononitrate 30 mg tablet,extended release 24 hr mg PO 01/08/24 [History] rosuvastatin 40 mg tablet 40 mg PO DAILY 01/08/24 [History Confirmed 01/08/24] Transfer Discharge Sum: Hosp Hospital Course Hospital course: Shree Chapman is a 78 year old male who presented to the ER yesterday with shortness of breath and respiratory distress and chest pain. He also had an episode of nausea and vomiting. EMS was called at home. When EMS arrived patient was tachycardic and was in respiratory distress was placed on CPAP and brought to the hospital. EKG was suggestive of STEMI. On arrival to the ED patient was intubated. During intubation patient lost the balls and received 2 rounds of CPR. Patient also had 1 episode of V-tach for which he was shocked and received 1 in round of CPR. Patient has been more responsive since then with purposeful new movement. Patient was started on heparin drip and amiodarone infusion was admitted to ICU for further treatment. Laboratory workup revealed WBC 17 K hemoglobin of 18 creatinine 1.7. Chest x- ray with diffuse lung disease likely moderate pulmonary edema with cardiomegaly. Chest CT was done which showed no PE aortic dissection or aortic aneurysm. Small bilateral pleural effusion with extensive presumed bibasilar dependent atelectasis versus pneumonia. Patchy airspace consolidation and ground-glass opacity in the aerated lungs which could represent pulmonary edema versus pneumonia. CT head was negative for any acute abnormality His troponin was also elevated lung with EKG not diagnostic for ST-elevation LA. patient has been started on heparin drip. He has a complicated history of coronary artery disease with multiple PCI in the past. 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 for further treatment. He was loaded with 3 mg of Plavix along with aspirin levels admission to the patient. Echo was performed which is pending at the time of transfer. Has also treated for possible sepsis related to pneumonia/aspiration pneumonia with broad-spectrum antibiotics. Cardiac arrest likely due to respiratory failure. Also on amiodarone infusion HUMAIRA with creatinine of 1.7 on admission baseline creatinine of 1.3. Continue to monitor Hypothyroidism Type 2 diabetes mellitus on insulin drip Pulmonary edema DVT prophylaxis on heparin drip Code status full code Time Spent with Patient Time attestation: Total time spent providing and/or coordinating transfer services: Exam Narrative: General: Pt is sedated, intubated and on mechanical ventilation Lungs/Chest: Trachea central Coarse BS B/L, bibasilar crackles Cardiac: RRR. Normal S1 S2. No murmurs Circulation: Pedal pulses are are weak but palpable and and symmetrical. Abdomen: Decreased bowel sounds. Obese. Soft. NT. ND. Extremities: No clubbing, cyanosis Warm. Patient has bilateral mild pitting edema : Jay in place Neurologic: Awake and follow some commands. DS: Data Data Completed and Pending Labs on day of discharge: Labs from last 24 hours 01/08/24 01/08/24 01/08/24 13:08 12:40 12:31 WBC RBC Hgb Hct MCV MCH MCHC RDW Plt Count MPV Immature Gran % (Auto) Neut % (Auto) Lymph % (Auto) [place]th % (Auto) Eos % (Auto) Baso % (Auto) Lymph # (Auto) [place] # (Auto) Eos # (Auto) Baso # (Auto) Abs Immat Gran (auto) Absolute Neuts (auto) Absolute Nucleated RBC Total Counted Neutrophils % (Manual) Band Neutrophils % Lymphocytes % (Manual) Monocytes % (Manual) Eosinophils % (Manual) Basophils % (Manual) Nucleated RBC % Abs Neuts (Manual) Abs Lymphs (Manual) Abs Monocytes (Manual) Absolute Eos (Manual) Abs Basophils (Manual) Platelet Estimate % Immature Plt Fraction Poikilocytosis Schistocytes PT INR APTT Puncture Site Right radial ABG pH 7.357 ABG pCO2 31.0 L ABG pO2 156.9 H ABG PO2/FiO2 Ratio 2.62 ABG HCO3 17.0 L ABG O2 Saturation 99.0 ABG O2 Content 24.8 H ABG Base Excess -6.9 VBG pH VBG pCO2 VBG pO2 VBG HCO3 A-a Gradient 236.8 Oxyhemoglobin 98.3 Carboxyhemoglobin Methemoglobin Reduced Hemoglobin Total Hemoglobin 17.8 O2 Delivery Device Ventilator O2 Liters/Min Not Reportable Minute Volume Not Reportable Vent Rate 18 Vent Mode Cmv FiO2 60 Tidal Volume 470 PEEP 8 Peak Inspir Pressure Not Reportable Pressure Support Not Reportable Sodium 140 Potassium 3.7 Chloride 109 H Carbon Dioxide 23 Anion Gap 8 BUN 27 H Creatinine 1.60 H Estim Creat Clear Calc 42 Estimated GFR 42 L Glucose 315 H POC Capillary Glucose 311 H Hemoglobin A1c Lactic Acid 3.2 H Calcium 7.7 L Phosphorus Magnesium Total Bilirubin 0.5 AST 256 H ALT 63 H Alkaline Phosphatase 107 Total Creatine Kinase 720 H Troponin I NT-Pro-B Natriuret Pep Total Protein 6.0 L Albumin 3.3 L Triglycerides Cholesterol LDL Cholesterol Direct HDL Direct Procalcitonin TSH (Reflex) Free T4 Urine Color Urine Appearance Urine pH Ur Specific [place] Urine Protein Urine Glucose (UA) Urine Ketones Ur Blood (Man) Urine Nitrate Urine Bilirubin Urine Urobilinogen Add Ur Microanalysis Leukocyte Esterase Rfl Urine RBC Urine WBC Ur Squamous Epith Cells Urine Bacteria Urine Casts Nasal MRSA (PCR) C. difficile (PCR) 01/08/24 01/08/24 01/08/24 12:11 11:02 09:18 WBC RBC Hgb Hct MCV MCH MCHC RDW Plt Count MPV Immature Gran % (Auto) Neut % (Auto) Lymph % (Auto) [place] % (Auto) Eos % (Auto) Baso % (Auto) Lymph # (Auto) [place] # (Auto) Eos # (Auto) Baso # (Auto) Abs Immat Gran (auto) Absolute Neuts (auto) Absolute Nucleated RBC Total Counted Neutrophils % (Manual) Band Neutrophils % Lymphocytes % (Manual) Monocytes % (Manual) Eosinophils % (Manual) Basophils % (Manual) Nucleated RBC % Abs Neuts (Manual) Abs Lymphs (Manual) Abs Monocytes (Manual) Absolute Eos (Manual) Abs Basophils (Manual) Platelet Estimate % Immature Plt Fraction Poikilocytosis Schistocytes PT INR APTT Puncture Site ABG pH ABG pCO2 ABG pO2 ABG PO2/FiO2 Ratio ABG HCO3 ABG O2 Saturation ABG O2 Content ABG Base Excess VBG pH 7.232 L* VBG pCO2 51.2 H VBG pO2 35.3 VBG HCO3 21.1 L A-a Gradient Oxyhemoglobin Carboxyhemoglobin Methemoglobin Reduced Hemoglobin Total Hemoglobin O2 Delivery Device Ventilator O2 Liters/Min Not Reportable Minute Volume Not Reportable Vent Rate 18 Vent Mode Cmv FiO2 60 Tidal Volume 470 PEEP 8 Peak Inspir Pressure Not Reportable Pressure Support Not Reportable Sodium Potassium Chloride Carbon Dioxide Anion Gap BUN Creatinine Estim Creat Clear Calc Estimated GFR Glucose POC Capillary Glucose 328 H 337 H Hemoglobin A1c Lactic Acid Calcium Phosphorus Magnesium Total Bilirubin AST ALT Alkaline Phosphatase Total Creatine Kinase Troponin I NT-Pro-B Natriuret Pep Total Protein Albumin Triglycerides Cholesterol LDL Cholesterol Direct HDL Direct Procalcitonin TSH (Reflex) Free T4 Urine Color Urine Appearance Urine pH Ur Specific [place] Urine Protein Urine Glucose (UA) Urine Ketones Ur Blood (Man) Urine Nitrate Urine Bilirubin Urine Urobilinogen Add Ur Microanalysis Leukocyte Esterase Rfl Urine RBC Urine WBC Ur Squamous Epith Cells Urine Bacteria Urine Casts Nasal MRSA (PCR) C. difficile (PCR) 01/08/24 01/08/24 01/08/24 09:17 09:01 08:12 WBC 17.0 H RBC 6.50 H Hgb 18.0 Hct 57.2 H MCV 88.0 MCH 27.7 MCHC 31.5 L RDW 15.7 H Plt Count 269 MPV 10.1 Immature Gran % (Auto) 0.6 H Neut % (Auto) 87.0 H Lymph % (Auto) 6.6 L [place] % (Auto) 5.3 Eos % (Auto) 0.1 Baso % (Auto) 0.4 Lymph # (Auto) 1.13 [place]th # (Auto) 0.9 H Eos # (Auto) 0.0 Baso # (Auto) 0.1 Abs Immat Gran (auto) 0.10 H Absolute Neuts (auto) 14.8 H Absolute Nucleated RBC 0.020 H Total Counted Neutrophils % (Manual) Band Neutrophils % Lymphocytes % (Manual) Monocytes % (Manual) Eosinophils % (Manual) Basophils % (Manual) Nucleated RBC % 0.1 Abs Neuts (Manual) Abs Lymphs (Manual) Abs Monocytes (Manual) Absolute Eos (Manual) Abs Basophils (Manual) Platelet Estimate % Immature Plt Fraction Poikilocytosis Schistocytes PT 14.8 H INR 1.1 APTT 54.3 H Puncture Site ABG pH ABG pCO2 ABG pO2 ABG PO2/FiO2 Ratio ABG HCO3 ABG O2 Saturation ABG O2 Content ABG Base Excess VBG pH VBG pCO2 VBG pO2 VBG HCO3 A-a Gradient Oxyhemoglobin Carboxyhemoglobin Methemoglobin Reduced Hemoglobin Total Hemoglobin O2 Delivery Device O2 Liters/Min Minute Volume Vent Rate Vent Mode FiO2 Tidal Volume PEEP Peak Inspir Pressure Pressure Support Sodium 138 Potassium 3.8 Chloride 103 Carbon Dioxide 21 L Anion Gap 14 H BUN 24 H Creatinine 1.70 H Estim Creat Clear Calc Not Reportable Estimated GFR 39 L Glucose 402 H POC Capillary Glucose Hemoglobin A1c 8.5 H Lactic Acid 5.3 H* Calcium 8.1 L Phosphorus 2.0 L Magnesium 1.8 Total Bilirubin 0.5 AST 361 H ALT 66 H Alkaline Phosphatase 146 H Total Creatine Kinase Troponin I 77.600 H* 79.900 H* D NT-Pro-B Natriuret Pep Total Protein 6.0 L Albumin 3.7 Triglycerides Cholesterol 162 LDL Cholesterol Direct 84 HDL Direct 33 Procalcitonin 23.9 TSH (Reflex) Free T4 Urine Color Urine Appearance Urine pH Ur Specific [place] Urine Protein Urine Glucose (UA) Urine Ketones Ur Blood (Man) Urine Nitrate Urine Bilirubin Urine Urobilinogen Add Ur Microanalysis Leukocyte Esterase Rfl Urine RBC Urine WBC Ur Squamous Epith Cells Urine Bacteria Urine Casts Nasal MRSA (PCR) C. difficile (PCR) 01/08/24 01/08/24 01/08/24 08:10 07:50 05:18 WBC RBC Hgb Hct MCV MCH MCHC RDW Plt Count MPV Immature Gran % (Auto) Neut % (Auto) Lymph % (Auto) [place] % (Auto) Eos % (Auto) Baso % (Auto) Lymph # (Auto) [place] # (Auto) Eos # (Auto) Baso # (Auto) Abs Immat Gran (auto) Absolute Neuts (auto) Absolute Nucleated RBC Total Counted Neutrophils % (Manual) Band Neutrophils % Lymphocytes % (Manual) Monocytes % (Manual) Eosinophils % (Manual) Basophils % (Manual) Nucleated RBC % Abs Neuts (Manual) Abs Lymphs (Manual) Abs Monocytes (Manual) Absolute Eos (Manual) Abs Basophils (Manual) Platelet Estimate % Immature Plt Fraction Poikilocytosis Schistocytes PT INR APTT Puncture Site Right radial ABG pH 7.236 L* ABG pCO2 48.0 H ABG pO2 167.7 H ABG PO2/FiO2 Ratio 1.68 ABG HCO3 19.9 L ABG O2 Saturation 98.8 ABG O2 Content 25.3 H ABG Base Excess -7.8 VBG pH VBG pCO2 VBG pO2 VBG HCO3 A-a Gradient 497.3 Oxyhemoglobin 98.3 Carboxyhemoglobin 0.4 Methemoglobin 0.4 Reduced Hemoglobin 0.9 Total Hemoglobin 18.1 H O2 Delivery Device Ventilator O2 Liters/Min Not Reportable Minute Volume Not Reportable Vent Rate 14 Vent Mode Cmv FiO2 100 Tidal Volume 470 PEEP 5 Peak Inspir Pressure Not Reportable Pressure Support Not Reportable Sodium Potassium Chloride Carbon Dioxide Anion Gap BUN Creatinine Estim Creat Clear Calc Estimated GFR Glucose POC Capillary Glucose 380 H Hemoglobin A1c Lactic Acid Calcium Phosphorus Magnesium Total Bilirubin AST ALT Alkaline Phosphatase Total Creatine Kinase Troponin I NT-Pro-B Natriuret Pep Total Protein Albumin Triglycerides Cholesterol LDL Cholesterol Direct HDL Direct Procalcitonin TSH (Reflex) 4.800 H Free T4 Pending Urine Color Urine Appearance Urine pH Ur Specific [place] Urine Protein Urine Glucose (UA) Urine Ketones Ur Blood (Man) Urine Nitrate Urine Bilirubin Urine Urobilinogen Add Ur Microanalysis Leukocyte Esterase Rfl Urine RBC Urine WBC Ur Squamous Epith Cells Urine Bacteria Urine Casts Nasal MRSA (PCR) Not detected C. difficile (PCR) Negative 01/08/24 01/08/24 01/08/24 03:56 02:50 02:44 WBC RBC Hgb Hct MCV MCH MCHC RDW Plt Count MPV Immature Gran % (Auto) Neut % (Auto) Lymph % (Auto) [place] % (Auto) Eos % (Auto) Baso % (Auto) Lymph # (Auto) [place] # (Auto) Eos # (Auto) Baso # (Auto) Abs Immat Gran (auto) Absolute Neuts (auto) Absolute Nucleated RBC Total Counted Neutrophils % (Manual) Band Neutrophils % Lymphocytes % (Manual) Monocytes % (Manual) Eosinophils % (Manual) Basophils % (Manual) Nucleated RBC % Abs Neuts (Manual) Abs Lymphs (Manual) Abs Monocytes (Manual) Absolute Eos (Manual) Abs Basophils (Manual) Platelet Estimate % Immature Plt Fraction Poikilocytosis Schistocytes PT INR APTT Puncture Site ABG pH ABG pCO2 ABG pO2 ABG PO2/FiO2 Ratio ABG HCO3 ABG O2 Saturation ABG O2 Content ABG Base Excess VBG pH VBG pCO2 VBG pO2 VBG HCO3 A-a Gradient Oxyhemoglobin Carboxyhemoglobin Methemoglobin Reduced Hemoglobin Total Hemoglobin O2 Delivery Device O2 Liters/Min Minute Volume Vent Rate Vent Mode FiO2 Tidal Volume PEEP Peak Inspir Pressure Pressure Support Sodium 138 Potassium 3.4 Chloride 101 Carbon Dioxide 21 L Anion Gap 16 H BUN 21 H Creatinine 1.20 1.30 Estim Creat Clear Calc Not Reportable Not Reportable Estimated GFR 59 54 L Glucose 458 H POC Capillary Glucose Hemoglobin A1c Lactic Acid 5.5 H* Calcium 8.0 L Phosphorus Magnesium 1.9 Total Bilirubin 0.6 AST 320 H ALT 57 H Alkaline Phosphatase 199 H Total Creatine Kinase Troponin I NT-Pro-B Natriuret Pep Total Protein 6.0 L Albumin 3.4 L Triglycerides Cholesterol LDL Cholesterol Direct HDL Direct Procalcitonin TSH (Reflex) Free T4 Urine Color Yellow Urine Appearance Cloudy H Urine pH 5.5 Ur Specific [place] 1.032 Urine Protein 3+ H Urine Glucose (UA) 3+ H Urine Ketones Negative Ur Blood (Man) 3+ H Urine Nitrate Negative Urine Bilirubin Negative Urine Urobilinogen 1.0 Add Ur Microanalysis Reviewed Leukocyte Esterase Rfl Negative Urine RBC 6-10 H Urine WBC 6-10 H Ur Squamous Epith Cells Few Urine Bacteria None seen Urine Casts 11-20 Nasal MRSA (PCR) C. difficile (PCR) 01/08/24 01/08/24 01/08/24 01:40 00:25 00:24 WBC RBC Hgb Hct MCV MCH MCHC RDW Plt Count MPV Immature Gran % (Auto) Neut % (Auto) Lymph % (Auto) [place] % (Auto) Eos % (Auto) Baso % (Auto) Lymph # (Auto) [place] # (Auto) Eos # (Auto) Baso # (Auto) Abs Immat Gran (auto) Absolute Neuts (auto) Absolute Nucleated RBC Total Counted Neutrophils % (Manual) Band Neutrophils % Lymphocytes % (Manual) Monocytes % (Manual) Eosinophils % (Manual) Basophils % (Manual) Nucleated RBC % Not Reportable Abs Neuts (Manual) 18.28 H Abs Lymphs (Manual) 6.62 H Abs Monocytes (Manual) 0.79 Absolute Eos (Manual) 0.53 H Abs Basophils (Manual) 0.26 H Platelet Estimate Adequate % Immature Plt Fraction Cancelled Poikilocytosis 1+ Schistocytes None seen PT 14.7 INR 1.1 APTT 39.1 H Puncture Site ABG pH ABG pCO2 ABG pO2 ABG PO2/FiO2 Ratio ABG HCO3 ABG O2 Saturation ABG O2 Content ABG Base Excess VBG pH VBG pCO2 VBG pO2 VBG HCO3 A-a Gradient Oxyhemoglobin Carboxyhemoglobin Methemoglobin Reduced Hemoglobin Total Hemoglobin O2 Delivery Device O2 Liters/Min Minute Volume Vent Rate Vent Mode FiO2 Tidal Volume PEEP Peak Inspir Pressure Pressure Support Sodium Potassium Chloride Carbon Dioxide Anion Gap BUN Creatinine Estim Creat Clear Calc Estimated GFR Glucose POC Capillary Glucose Hemoglobin A1c Lactic Acid 8.6 H* Calcium Phosphorus Magnesium Total Bilirubin AST ALT Alkaline Phosphatase Total Creatine Kinase Troponin I 27.800 H* NT-Pro-B Natriuret Pep 1280 H Total Protein Albumin Triglycerides 298 H Cholesterol LDL Cholesterol Direct HDL Direct Procalcitonin TSH (Reflex) Free T4 Urine Color Urine Appearance Urine pH Ur Specific [place] Urine Protein Urine Glucose (UA) Urine Ketones Ur Blood (Man) Urine Nitrate Urine Bilirubin Urine Urobilinogen Add Ur Microanalysis Leukocyte Esterase Rfl Urine RBC Urine WBC Ur Squamous Epith Cells Urine Bacteria Urine Casts Nasal MRSA (PCR) C. difficile (PCR) 01/08/24 01/08/24 01/08/24 00:24 00:24 00:24 WBC RBC Hgb Hct MCV MCH MCHC RDW Plt Count MPV Immature Gran % (Auto) Neut % (Auto) Lymph % (Auto) [place] % (Auto) Eos % (Auto) Baso % (Auto) Lymph # (Auto) [place] # (Auto) Eos # (Auto) Baso # (Auto) Abs Immat Gran (auto) Not Reportable Absolute Neuts (auto) Not Reportable Cancelled Absolute Nucleated RBC Not Reportable Cancelled Total Counted 100 Neutrophils % (Manual) 55 Band Neutrophils % 14 H Lymphocytes % (Manual) 25.0 Monocytes % (Manual) 3 Eosinophils % (Manual) 2 Basophils % (Manual) 1 Nucleated RBC % Cancelled Abs Neuts (Manual) Abs Lymphs (Manual) Abs Monocytes (Manual) Absolute Eos (Manual) Abs Basophils (Manual) Platelet Estimate % Immature Plt Fraction Poikilocytosis Schistocytes PT INR APTT Puncture Site ABG pH ABG pCO2 ABG pO2 ABG PO2/FiO2 Ratio ABG HCO3 ABG O2 Saturation ABG O2 Content ABG Base Excess VBG pH VBG pCO2 VBG pO2 VBG HCO3 A-a Gradient Oxyhemoglobin Carboxyhemoglobin Methemoglobin Reduced Hemoglobin Total Hemoglobin O2 Delivery Device O2 Liters/Min Minute Volume Vent Rate Vent Mode FiO2 Tidal Volume PEEP Peak Inspir Pressure Pressure Support Sodium Potassium Chloride Carbon Dioxide Anion Gap BUN Creatinine Estim Creat Clear Calc Estimated GFR Glucose POC Capillary Glucose Hemoglobin A1c Lactic Acid Calcium Phosphorus Magnesium Total Bilirubin AST ALT Alkaline Phosphatase Total Creatine Kinase Troponin I NT-Pro-B Natriuret Pep Total Protein Albumin Triglycerides Cholesterol LDL Cholesterol Direct HDL Direct Procalcitonin TSH (Reflex) Free T4 Urine Color Urine Appearance Urine pH Ur Specific [place] Urine Protein Urine Glucose (UA) Urine Ketones Ur Blood (Man) Urine Nitrate Urine Bilirubin Urine Urobilinogen Add Ur Microanalysis Leukocyte Esterase Rfl Urine RBC Urine WBC Ur Squamous Epith Cells Urine Bacteria Urine Casts Nasal MRSA (PCR) C. difficile (PCR) 01/08/24 01/08/24 01/08/24 00:24 00:24 00:24 WBC RBC Hgb Hct MCV MCH MCHC RDW Plt Count MPV Immature Gran % (Auto) Neut % (Auto) Lymph % (Auto) [place] % (Auto) Eos % (Auto) Baso % (Auto) Lymph # (Auto) [place] # (Auto) Not Reportable Eos # (Auto) Not Reportable Cancelled Baso # (Auto) Not Reportable Cancelled Abs Immat Gran (auto) Cancelled Absolute Neuts (auto) Absolute Nucleated RBC Total Counted Neutrophils % (Manual) Band Neutrophils % Lymphocytes % (Manual) Monocytes % (Manual) Eosinophils % (Manual) Basophils % (Manual) Nucleated RBC % Abs Neuts (Manual) Abs Lymphs (Manual) Abs Monocytes (Manual) Absolute Eos (Manual) Abs Basophils (Manual) Platelet Estimate % Immature Plt Fraction Poikilocytosis Schistocytes PT INR APTT Puncture Site ABG pH ABG pCO2 ABG pO2 ABG PO2/FiO2 Ratio ABG HCO3 ABG O2 Saturation ABG O2 Content ABG Base Excess VBG pH VBG pCO2 VBG pO2 VBG HCO3 A-a Gradient Oxyhemoglobin Carboxyhemoglobin Methemoglobin Reduced Hemoglobin Total Hemoglobin O2 Delivery Device O2 Liters/Min Minute Volume Vent Rate Vent Mode FiO2 Tidal Volume PEEP Peak Inspir Pressure Pressure Support Sodium Potassium Chloride Carbon Dioxide Anion Gap BUN Creatinine Estim Creat Clear Calc Estimated GFR Glucose POC Capillary Glucose Hemoglobin A1c Lactic Acid Calcium Phosphorus Magnesium Total Bilirubin AST ALT Alkaline Phosphatase Total Creatine Kinase Troponin I NT-Pro-B Natriuret Pep Total Protein Albumin Triglycerides Cholesterol LDL Cholesterol Direct HDL Direct Procalcitonin TSH (Reflex) Free T4 Urine Color Urine Appearance Urine pH Ur Specific [place] Urine Protein Urine Glucose (UA) Urine Ketones Ur Blood (Man) Urine Nitrate Urine Bilirubin Urine Urobilinogen Add Ur Microanalysis Leukocyte Esterase Rfl Urine RBC Urine WBC Ur Squamous Epith Cells Urine Bacteria Urine Casts Nasal MRSA (PCR) C. difficile (PCR) 01/08/24 01/08/24 01/08/24:24 00: 00:24 WBC RBC Hgb Hct MCV MCH MCHC RDW Plt Count MPV Immature Gran % (Auto) Neut % (Auto) Lymph % (Auto) [place] % (Auto) Eos % (Auto) Not Reportable Baso % (Auto) Not Reportable Cancelled Lymph # (Auto) Not Reportable Cancelled [place] # (Auto) Cancelled Eos # (Auto) Baso # (Auto) Abs Immat Gran (auto) Absolute Neuts (auto) Absolute Nucleated RBC Total Counted Neutrophils % (Manual) Band Neutrophils % Lymphocytes % (Manual) Monocytes % (Manual) Eosinophils % (Manual) Basophils % (Manual) Nucleated RBC % Abs Neuts (Manual) Abs Lymphs (Manual) Abs Monocytes (Manual) Absolute Eos (Manual) Abs Basophils (Manual) Platelet Estimate % Immature Plt Fraction Poikilocytosis Schistocytes PT INR APTT Puncture Site ABG pH ABG pCO2 ABG pO2 ABG PO2/FiO2 Ratio ABG HCO3 ABG O2 Saturation ABG O2 Content ABG Base Excess VBG pH VBG pCO2 VBG pO2 VBG HCO3 A-a Gradient Oxyhemoglobin Carboxyhemoglobin Methemoglobin Reduced Hemoglobin Total Hemoglobin O2 Delivery Device O2 Liters/Min Minute Volume Vent Rate Vent Mode FiO2 Tidal Volume PEEP Peak Inspir Pressure Pressure Support Sodium Potassium Chloride Carbon Dioxide Anion Gap BUN Creatinine Estim Creat Clear Calc Estimated GFR Glucose POC Capillary Glucose Hemoglobin A1c Lactic Acid Calcium Phosphorus Magnesium Total Bilirubin AST ALT Alkaline Phosphatase Total Creatine Kinase Troponin I NT-Pro-B Natriuret Pep Total Protein Albumin Triglycerides Cholesterol LDL Cholesterol Direct HDL Direct Procalcitonin TSH (Reflex) Free T4 Urine Color Urine Appearance Urine pH Ur Specific [place] Urine Protein Urine Glucose (UA) Urine Ketones Ur Blood (Man) Urine Nitrate Urine Bilirubin Urine Urobilinogen Add Ur Microanalysis Leukocyte Esterase Rfl Urine RBC Urine WBC Ur Squamous Epith Cells Urine Bacteria Urine Casts Nasal MRSA (PCR) C. difficile (PCR) 01/08/24 01/08/24 01/08/24:24 ::24 WBC RBC Hgb Hct MCV MCH MCHC RDW Plt Count MPV Immature Gran % (Auto) Neut % (Auto) Not Reportable Lymph % (Auto) Not Reportable Cancelled [place] % (Auto) Not Reportable Cancelled Eos % (Auto) Cancelled Baso % (Auto) Lymph # (Auto) [place] # (Auto) Eos # (Auto) Baso # (Auto) Abs Immat Gran (auto) Absolute Neuts (auto) Absolute Nucleated RBC Total Counted Neutrophils % (Manual) Band Neutrophils % Lymphocytes % (Manual) Monocytes % (Manual) Eosinophils % (Manual) Basophils % (Manual) Nucleated RBC % Abs Neuts (Manual) Abs Lymphs (Manual) Abs Monocytes (Manual) Absolute Eos (Manual) Abs Basophils (Manual) Platelet Estimate % Immature Plt Fraction Poikilocytosis Schistocytes PT INR APTT Puncture Site ABG pH ABG pCO2 ABG pO2 ABG PO2/FiO2 Ratio ABG HCO3 ABG O2 Saturation ABG O2 Content ABG Base Excess VBG pH VBG pCO2 VBG pO2 VBG HCO3 A-a Gradient Oxyhemoglobin Carboxyhemoglobin Methemoglobin Reduced Hemoglobin Total Hemoglobin O2 Delivery Device O2 Liters/Min Minute Volume Vent Rate Vent Mode FiO2 Tidal Volume PEEP Peak Inspir Pressure Pressure Support Sodium Potassium Chloride Carbon Dioxide Anion Gap BUN Creatinine Estim Creat Clear Calc Estimated GFR Glucose POC Capillary Glucose Hemoglobin A1c Lactic Acid Calcium Phosphorus Magnesium Total Bilirubin AST ALT Alkaline Phosphatase Total Creatine Kinase Troponin I NT-Pro-B Natriuret Pep Total Protein Albumin Triglycerides Cholesterol LDL Cholesterol Direct HDL Direct Procalcitonin TSH (Reflex) Free T4 Urine Color Urine Appearance Urine pH Ur Specific [place] Urine Protein Urine Glucose (UA) Urine Ketones Ur Blood (Man) Urine Nitrate Urine Bilirubin Urine Urobilinogen Add Ur Microanalysis Leukocyte Esterase Rfl Urine RBC Urine WBC Ur Squamous Epith Cells Urine Bacteria Urine Casts Nasal MRSA (PCR) C. difficile (PCR) 01/08/24 01/08/24 01/08/24 00:24 00:24 00:24 WBC RBC Hgb Hct MCV MCH MCHC RDW Plt Count 292 MPV 10.1 Cancelled Immature Gran % (Auto) Not Reportable Cancelled Neut % (Auto) Cancelled Lymph % (Auto) [place] % (Auto) Eos % (Auto) Baso % (Auto) Lymph # (Auto) [place] # (Auto) Eos # (Auto) Baso # (Auto) Abs Immat Gran (auto) Absolute Neuts (auto) Absolute Nucleated RBC Total Counted Neutrophils % (Manual) Band Neutrophils % Lymphocytes % (Manual) Monocytes % (Manual) Eosinophils % (Manual) Basophils % (Manual) Nucleated RBC % Abs Neuts (Manual) Abs Lymphs (Manual) Abs Monocytes (Manual) Absolute Eos (Manual) Abs Basophils (Manual) Platelet Estimate % Immature Plt Fraction Poikilocytosis Schistocytes PT INR APTT Puncture Site ABG pH ABG pCO2 ABG pO2 ABG PO2/FiO2 Ratio ABG HCO3 ABG O2 Saturation ABG O2 Content ABG Base Excess VBG pH VBG pCO2 VBG pO2 VBG HCO3 A-a Gradient Oxyhemoglobin Carboxyhemoglobin Methemoglobin Reduced Hemoglobin Total Hemoglobin O2 Delivery Device O2 Liters/Min Minute Volume Vent Rate Vent Mode FiO2 Tidal Volume PEEP Peak Inspir Pressure Pressure Support Sodium Potassium Chloride Carbon Dioxide Anion Gap BUN Creatinine Estim Creat Clear Calc Estimated GFR Glucose POC Capillary Glucose Hemoglobin A1c Lactic Acid Calcium Phosphorus Magnesium Total Bilirubin AST ALT Alkaline Phosphatase Total Creatine Kinase Troponin I NT-Pro-B Natriuret Pep Total Protein Albumin Triglycerides Cholesterol LDL Cholesterol Direct HDL Direct Procalcitonin TSH (Reflex) Free T4 Urine Color Urine Appearance Urine pH Ur Specific [place] Urine Protein Urine Glucose (UA) Urine Ketones Ur Blood (Man) Urine Nitrate Urine Bilirubin Urine Urobilinogen Add Ur Microanalysis Leukocyte Esterase Rfl Urine RBC Urine WBC Ur Squamous Epith Cells Urine Bacteria Urine Casts Nasal MRSA (PCR) C. difficile (PCR) 01/08/24 01/08/24 01/08/24 00:24 00:24 00:24 WBC RBC Hgb Hct MCV MCH 28.2 MCHC 31.6 L Cancelled RDW 14.8 H Cancelled Plt Count Cancelled MPV Immature Gran % (Auto) Neut % (Auto) Lymph % (Auto) [place] % (Auto) Eos % (Auto) Baso % (Auto) Lymph # (Auto) [place] # (Auto) Eos # (Auto) Baso # (Auto) Abs Immat Gran (auto) Absolute Neuts (auto) Absolute Nucleated RBC Total Counted Neutrophils % (Manual) Band Neutrophils % Lymphocytes % (Manual) Monocytes % (Manual) Eosinophils % (Manual) Basophils % (Manual) Nucleated RBC % Abs Neuts (Manual) Abs Lymphs (Manual) Abs Monocytes (Manual) Absolute Eos (Manual) Abs Basophils (Manual) Platelet Estimate % Immature Plt Fraction Poikilocytosis Schistocytes PT INR APTT Puncture Site ABG pH ABG pCO2 ABG pO2 ABG PO2/FiO2 Ratio ABG HCO3 ABG O2 Saturation ABG O2 Content ABG Base Excess VBG pH VBG pCO2 VBG pO2 VBG HCO3 A-a Gradient Oxyhemoglobin Carboxyhemoglobin Methemoglobin Reduced Hemoglobin Total Hemoglobin O2 Delivery Device O2 Liters/Min Minute Volume Vent Rate Vent Mode FiO2 Tidal Volume PEEP Peak Inspir Pressure Pressure Support Sodium Potassium Chloride Carbon Dioxide Anion Gap BUN Creatinine Estim Creat Clear Calc Estimated GFR Glucose POC Capillary Glucose Hemoglobin A1c Lactic Acid Calcium Phosphorus Magnesium Total Bilirubin AST ALT Alkaline Phosphatase Total Creatine Kinase Troponin I NT-Pro-B Natriuret Pep Total Protein Albumin Triglycerides Cholesterol LDL Cholesterol Direct HDL Direct Procalcitonin TSH (Reflex) Free T4 Urine Color Urine Appearance Urine pH Ur Specific [place] Urine Protein Urine Glucose (UA) Urine Ketones Ur Blood (Man) Urine Nitrate Urine Bilirubin Urine Urobilinogen Add Ur Microanalysis Leukocyte Esterase Rfl Urine RBC Urine WBC Ur Squamous Epith Cells Urine Bacteria Urine Casts Nasal MRSA (PCR) C. difficile (PCR) 01/08/24 01/08/24 01/08/24 00:24 00:24 00:24 WBC RBC Hgb 18.7 H Hct 59.2 H Cancelled MCV 89.2 Cancelled MCH Cancelled MCHC RDW Plt Count MPV Immature Gran % (Auto) Neut % (Auto) Lymph % (Auto) [place] % (Auto) Eos % (Auto) Baso % (Auto) Lymph # (Auto) [place] # (Auto) Eos # (Auto) Baso # (Auto) Abs Immat Gran (auto) Absolute Neuts (auto) Absolute Nucleated RBC Total Counted Neutrophils % (Manual) Band Neutrophils % Lymphocytes % (Manual) Monocytes % (Manual) Eosinophils % (Manual) Basophils % (Manual) Nucleated RBC % Abs Neuts (Manual) Abs Lymphs (Manual) Abs Monocytes (Manual) Absolute Eos (Manual) Abs Basophils (Manual) Platelet Estimate % Immature Plt Fraction Poikilocytosis Schistocytes PT INR APTT Puncture Site ABG pH ABG pCO2 ABG pO2 ABG PO2/FiO2 Ratio ABG HCO3 ABG O2 Saturation ABG O2 Content ABG Base Excess VBG pH VBG pCO2 VBG pO2 VBG HCO3 A-a Gradient Oxyhemoglobin Carboxyhemoglobin Methemoglobin Reduced Hemoglobin Total Hemoglobin O2 Delivery Device O2 Liters/Min Minute Volume Vent Rate Vent Mode FiO2 Tidal Volume PEEP Peak Inspir Pressure Pressure Support Sodium Potassium Chloride Carbon Dioxide Anion Gap BUN Creatinine Estim Creat Clear Calc Estimated GFR Glucose POC Capillary Glucose Hemoglobin A1c Lactic Acid Calcium Phosphorus Magnesium Total Bilirubin AST ALT Alkaline Phosphatase Total Creatine Kinase Troponin I NT-Pro-B Natriuret Pep Total Protein Albumin Triglycerides Cholesterol LDL Cholesterol Direct HDL Direct Procalcitonin TSH (Reflex) Free T4 Urine Color Urine Appearance Urine pH Ur Specific [place] Urine Protein Urine Glucose (UA) Urine Ketones Ur Blood (Man) Urine Nitrate Urine Bilirubin Urine Urobilinogen Add Ur Microanalysis Leukocyte Esterase Rfl Urine RBC Urine WBC Ur Squamous Epith Cells Urine Bacteria Urine Casts Nasal MRSA (PCR) C. difficile (PCR) 01/08/24 01/08/24 01/08/24 00:24 00:24 00:24 WBC 26.5 H Cancelled RBC 6.64 H Cancelled Hgb Cancelled Hct MCV MCH MCHC RDW Plt Count MPV Immature Gran % (Auto) Neut % (Auto) Lymph % (Auto) [place] % (Auto) Eos % (Auto) Baso % (Auto) Lymph # (Auto) [place] # (Auto) Eos # (Auto) Baso # (Auto) Abs Immat Gran (auto) Absolute Neuts (auto) Absolute Nucleated RBC Total Counted Neutrophils % (Manual) Band Neutrophils % Lymphocytes % (Manual) Monocytes % (Manual) Eosinophils % (Manual) Basophils % (Manual) Nucleated RBC % Abs Neuts (Manual) Abs Lymphs (Manual) Abs Monocytes (Manual) Absolute Eos (Manual) Abs Basophils (Manual) Platelet Estimate % Immature Plt Fraction Poikilocytosis Schistocytes PT INR APTT Puncture Site ABG pH ABG pCO2 ABG pO2 ABG PO2/FiO2 Ratio ABG HCO3 ABG O2 Saturation ABG O2 Content ABG Base Excess VBG pH VBG pCO2 VBG pO2 VBG HCO3 A-a Gradient Oxyhemoglobin Carboxyhemoglobin Methemoglobin Reduced Hemoglobin Total Hemoglobin O2 Delivery Device O2 Liters/Min Minute Volume Vent Rate Vent Mode FiO2 Tidal Volume PEEP Peak Inspir Pressure Pressure Support Sodium Potassium Chloride Carbon Dioxide Anion Gap BUN Creatinine Estim Creat Clear Calc Estimated GFR Glucose POC Capillary Glucose Hemoglobin A1c Lactic Acid Calcium Phosphorus Magnesium Total Bilirubin AST ALT Alkaline Phosphatase Total Creatine Kinase Troponin I NT-Pro-B Natriuret Pep Total Protein Albumin Triglycerides Cholesterol LDL Cholesterol Direct HDL Direct Procalcitonin TSH (Reflex) Free T4 Urine Color Urine Appearance Urine pH Ur Specific [place] Urine Protein Urine Glucose (UA) Urine Ketones Ur Blood (Man) Urine Nitrate Urine Bilirubin Urine Urobilinogen Add Ur Microanalysis Leukocyte Esterase Rfl Urine RBC Urine WBC Ur Squamous Epith Cells Urine Bacteria Urine Casts Nasal MRSA (PCR) C. difficile (PCR) Imaging Radiologist's impression: ITS Impressions Chest X-Ray 01/07/24 23:39 IMPRESSION: 1. Endotracheal tube tip at the thoracic inlet, 12.7 cm from the shabnam. 2. Diffuse lung disease, likely moderate pulmonary edema. 3. Cardiomegaly. Abdomen X-Ray 01/08/24 05:34 Impression: NG tube in satisfactory position. Chest X-Ray 01/08/24 05:34 Impression: Support tubes, as above. Moderate to advanced pulmonary edema pattern with central congestive change. Chest CTA 01/08/24 06:12 Impression: No evidence of pulmonary embolus, aortic dissection, or aortic aneurysm. Small bilateral pleural effusions with extensive presumed bibasilar dependent atelectasis, versus pneumonia. Patchy airspace consolidation and ground glass opacity in the aerated lungs, which could represent pulmonary edema versus pneumonia. Head CT 01/08/24 06:41 Impression: No significant abnormality seen.
[2024-01-08 15:34] LABS: Reflex Lactic Acid Yes or No Add Lactic
[2024-01-08 17:04] LABS: Free T4 Free Thyroxine Reflex 2.47 ng/dL (0.78-2.19)
[2024-01-09 14:33] LABS: Base Excess ABG -7.8 mEq/l (+/-2.0); HCO3 ABG 19.9 mEq/l (22.0-26.0); PO2 ABG 167.7 mmHg (80.0-100.0); pH ABG 7.236 (7.350-7.450)
[2024-01-09 14:34] LABS: Alveolar/Arterial O2 Gradient 497.3 mmHg; Carboxyhemoglobin 0.4 % THb (0-2.0); Oxygen Saturation ABG 98.8 % (95.0-100.0); Oxyhemoglobin 98.3 % THb (90.0-100.0); Total Hemoglobin 18.1 g/dL (12.0-18.0)
[2024-01-09 14:35] LABS: Methemoglobin ABG 0.4 %THb (0-1.5); Oxygen Content ABG 25.3 %vol (16.0-22.0); PO2 FiO2 Ratio Arterial Blood 1.68 %; Reduced Hemoglobin 0.9 %THb (0-5.0)
[2024-01-09 14:36] LABS: Device VENTILATOR
== END 2024-01-08 14:05 | disposition short-term general hospital (02) | DRG 871 ==
LOC: ANHED 01-08 05:20 → ANHICU 01-08 06:18
PROVIDERS: Internal Medicine; Internal Medicine Interventional Cardiology; Admitting Provider Internal Medicine; Emergency Provider Emergency Medicine; Visit Provider Internal Medicine
DX: A41.9 Sepsis, unspecified organism (principal); I21.4 Non-ST elevation (NSTEMI) myocardial infarction; I46.8 Cardiac arrest due to other underlying condition; J18.9 Pneumonia, unspecified organism; J69.0 Pneumonitis due to inhalation of food and vomit; J96.01 Acute respiratory failure with hypoxia; N17.8 Other acute kidney failure; I47.20 Ventricular tachycardia, unspecified; I50.22 Chronic systolic (congestive) heart failure; E11.9 Type 2 diabetes mellitus without complications; I11.0 Hypertensive heart disease with heart failure; I25.10 Atherosclerotic heart disease of native coronary artery without angina pectoris; E03.9 Hypothyroidism, unspecified; Z79.84 Long term (current) use of oral hypoglycemic drugs; Z85.21 Personal history of malignant neoplasm of larynx; Z95.5 Presence of coronary angioplasty implant and graft; Z79.82 Long term (current) use of aspirin; Z91.148 Patient's other noncompliance with medication regimen for other reason
CPT/HCPCS: 31500; 36415; 36569; 36600; 70450; 71275; 80053; 81001; 82375; 82465; 82550; 82803; 82805; 82948; 83036; 83050; 83605; 83718; 83721; 83735; 83880; 84100; 84145; 84439; 84443; 84478; 84484; 85018; 85025; 85610; 85730; 87040; 87070; 87086; 87181; 87205; 87493; 87641; 93005; 94002; 94003; 96365; 96366; 96367; 99291; A9270; J0171; J0282; J0456; J0696; J1644; J1815; J2003; J2250; J2470; J2543; J2704; J7030; Q9967